=== PATIENT | male | born 1940 | race Caucasian/White ===

== ENCOUNTER 2019-04-19 10:00 | Observation (INO) | payer OTHER ==
[2019-04-19 10:22] VITALS: BMI 29.4
--- NOTE | 2019-04-19 10:31 | PDOC ---
History of Present Illness - General Chief Complaint: Syncope/Near Syncope Stated Complaint: LETHARGIC Time Seen by Provider: 04/19/19 10:31 History Source: Patient - History of Present Illness Initial Comments: 04/19/19 11:16 The patient is a 78 year old male with a PMH of Aortic valve replacement, CABG, HTN and BPH who was BIBEMS following a pre-syncopal episode this morning. Female comfort station attendant @ bedside assists in history. Patient states he was standing up in [place] this morning when he suddenly felt weak, lightheaded and diaphoretic. Denies any shortness of breath or palpitations. Patient did not syncopize but female comfort station attendant notes patient was unresponsive to his name or gentle shaking. EMS gave the patient glucose and subsequent BS was in the low 100's. States he had a similar episode one year previous for which he received no formal medical evaluation. Patient notes he ate a few cookies, one jellybean and drank coffee and orange justice this morning and attributes his symptoms to hypoglycemia. Patient lives in [place] and follows with a private PMD, the [place]. Previously scheduled cardiac evaluation including stress testing scheduled on 05/19/19. Patient notes he is in the process of eventually relocating to [place]. Allergy: Lidocaine (edema) Surgical: Aortic Valve replacement, CABG, B/L carpal tunnel, B/L knee replacement PMD: Dr. Su ([place]); [facility], patient has had no previous evaluations in our ED. Past History - Past Medical History Allergies/Adverse Reactions: Allergies Allergy/AdvReac Type Severity Reaction Status Date / Time lidocaine Allergy Verified 04/19/19 10:18 Home Medications: Ambulatory Orders Aspirin [Aspirin EC] 81 mg PO DAILY 04/19/19 Celecoxib [Celebrex] 200 mg PO DAILY 04/19/19 Clopidogrel Bisulfate [Plavix] 75 mg PO DAILY 04/19/19 Ezetimibe 10 mg PO HS 04/19/19 Lisinopril 20 mg PO DAILY 04/19/19 Metoprolol Tartrate 25 mg PO BID 04/19/19 Tamsulosin HCl [Flomax] 0.4 mg PO HS 04/19/19 Tramadol HCl [Ultram] 50 mg PO PRN PRN 04/19/19 Cardiac Disorders: Yes COPD: No Diabetes: Yes (diet controlled) HTN: Yes Hypercholesterolemia: Yes - Surgical History Cardiac Surgery: Yes (aortic vaulve, tripple bipass) - Suicide/Smoking/Psychosocial Hx Smoking History: Former smoker Have you smoked in the past 12 months: No Information on smoking cessation initiated: No Hx Alcohol Use: Yes Drug/Substance Use Hx: No Review of Systems - Review of Systems Constitutional: Yes: Weakness (episodic). No: Chills, Fever HEENTM: No: Blurred Vision, Recent change in vision Respiratory: No: Cough, Shortness of Breath Cardiac (ROS): No: Chest Pain, Lightheadedness, Syncope ABD/GI: No: Constipated, Diarrhea, Nausea, Vomiting : No: Burning, Dysuria *Physical Exam - Vital Signs Last Vital Signs Temp Pulse Resp BP Pulse Ox 97.5 F L 55 L 18 139/65 96 04/19/19 10:14 04/19/19 10:14 04/19/19 10:14 04/19/19 10:14 04/19/19 10:14 - Physical Exam Comments: 04/19/19 14:11 Triage VS reviewed, mildly bradycardic (HR 55) Awake, alert, well appearing, jocular CV: S1, S2, holosytolic Grade II murmur, no edema, no JVD Respiratory: CLTA B/L, no wheeze/crackles Abdomen: Soft, non-tender, no TTP Extremity: 2+ DP pulses, no edema Neuro: A&O x3, CN II-XII intact Heart Score/ECG Review - ECG Impressions Comment:: 04/19/19 14:19 EKG shows NSR HR 54, normal intervals, mild atrial enlargement, no deviations, no PARESH/STD/TWI - non ischemic EKG ED Treatment Course - LABORATORY CBC & Chemistry Diagram: 04/19/19 11:14 04/19/19 11:14 Medical Decision Making - Medical Decision Making 04/19/19 11:26 Paco Voss is a 78 year old male who presents with pre-syncopal episode. Mildly bradycardic (HR 55), other VS unremarkable. Repeat HR 60's. Patient is awake, well appearing, jocular. DDx is broad given patient's cardiac comorbitidies and includes r/o ACS, Arrhythmia, orthostatic insufficiency, carotid sinus syndrome or structural heart disease. Also consider hypoglycemia , vasovagal. Plan for Troponin, EKG, CXR, CBC/CMP. Cardiac monitoring. Reassess 04/19/19 11:27 EKG non-ischemic as documented in EKG section of EMR 04/19/19 11:49 No anemia, leukocytosis Fingerstick 145 04/19/19 12:59 Tropopnin (-) x1 Patient counseled on importance of admission for further evaluation including serial troponins, ? echo 04/19/19 13:13 Attending discussed case w/patient's PMD in [place], agrees with admission 04/19/19 14:14 Case d/w Dr. Senior (Resident) and Dr. Gaitan from hospitalist medicine service. Will admit to OBS telemetry. Patient reassessed @ bedside, Repeat HR 65, resting comfortably Clinical Impression: Pre-Syncope, possibly cardiac (including arrhythmia, bradycardia) vs. metabolic, hypoglycemia *DC/Admit/Observation/Transfer Diagnosis at time of Disposition: Near syncope - Discharge Dispostion Condition at time of disposition: Fair Decision to Admit order: Yes - Referrals - Patient Instructions - Post Discharge Activity
[2019-04-19 11:26] LABS: BASO % 0.5 % (0-2.0); EOS % 1.7 % (0-4.5); HEMATOCRIT 40.6 % (35.4-49); HEMOGLOBIN 14.1 GM/dL (11.7-16.9); LYMPH % 13.1 % (8-40); MCH 33.9 pg (25.7-33.7); MCHC 34.7 g/dl (32.0-35.9); MEAN CELL VOLUME 97.7 fl (80-96); MEAN PLT VOLUME 7.2 fl (7.5-11.1); MONO % 9.4 % (3.8-10.2); NEUT % 75.3 % (42.8-82.8); PLATELET COUNT 215 K/MM3 (134-434); RBC 4.16 M/mm3 (4.00-5.60); RDW 14.3 % (11.9-15.9); WHITE BLOOD COUNT 7.7 K/mm3 (4.0-10.0)
[2019-04-19 11:52] LABS: ALBUMIN 3.7 g/dl (3.4-5.0); ALK PHOS 64 U/L (45-117); ANION GAP 8 MMOL/L (8-16); BILIRUBIN,TOTAL 0.6 mg/dL (0.2-1); BLOOD UREA NITROGEN 17 mg/dL (7-18); CHLORIDE 99 mmol/L (98-107); CO2 26 mmol/L (21-32); CREATININE 0.7 mg/dL (0.55-1.3); GLUCOSE,RANDOM 146 mg/dL (74-106); N-TERMINAL BNP 256.1 pg/ml (5-450); POTASSIUM 3.7 mmol/L (3.5-5.1); SGOT/AST 30 U/L (15-37); SGPT/ALT 44 U/L (13-61); SODIUM 133 mmol/L (136-145); TOT PROT 6.7 g/dl (6.4-8.2)
--- NOTE | 2019-04-19 13:21 | PDOC ---
Documentation entered by Otoniel Bruce SCRIBE, acting as scribe for Miri Navarro MD. Miri Navarro MD: This documentation has been prepared by the Teo mcdaniel Daniel, SCRIBE, under my direction and personally reviewed by me in its entirety. I confirm that the documentation accurately reflects all work, treatment, procedures, and medical decision making performed by me. Attending Attestation - Resident Resident Name: Abby Galindo - [facility] HPI: 04/19/19 11:05 The patient is a 78 year old male with a past medical history of HTN, aortic valve replacement, diabetes, and CABG here today for evaluation of lightheadedness. The patient reports that he stood and suddenly felt lightheaded and felt like he needed to sleep. Patient's friend reports that his color was "off", he was unresponsive, and he was diaphoretic for 30-45 minutes. He reports that this before with the last episode 1 year ago and he ate and felt better. He states that he is currently asymptomatic. Patient denies headache. Denies fever, chills. Denies chest pain, shortness of breath. Denies nausea, vomiting, diarrhea, abdominal pain. Allergies: lidocaine Surgical history: right rotator cuff repair. Bilateral knee surgery. PCP: Dr. Su - Physicial Exam PE: 04/19/19 13:09 GENERAL: Awake, alert, and fully oriented, in no acute distress HEAD: No signs of trauma EYES: PERRLA, EOMI, sclera anicteric, conjunctiva clear ENT: Auricles normal inspection, hearing grossly normal, nares patent, oropharynx clear without exudates. Moist mucosa NECK: Normal ROM, supple, no lymphadenopathy, JVD, or masses LUNGS: Breath sounds equal, clear to auscultation bilaterally. No wheezes, and no crackles HEART: Regular rate and rhythm, normal S1 and S2, no murmurs, rubs or gallops ABDOMEN: Soft, nontender, normoactive bowel sounds. No guarding, no rebound. No masses EXTREMITIES: Normal range of motion, no edema. No clubbing or cyanosis. No cords, erythema, or tenderness NEUROLOGICAL: Cranial nerves II through XII grossly intact. Normal speech, normal gait SKIN: Warm, Dry, normal turgor, no rashes or lesions noted. - Medical Decision Making 04/19/19 13:19 Pt presents to the ED complaining of presyncope that resolved spontaneously. now denies complaints. Given his extensive cardiac history, arrythmia and ACS remain on the differential. Will check labs and cardiac enzymes and admit for observation.
--- NOTE | 2019-04-19 14:05 | HP ---
CHIEF COMPLAINT: "Got Faint" PCP: In [place] HISTORY OF PRESENT ILLNESS: Pt. is a 78 y.o. M presenting for a few minutes of lightheadedness and faintness. Pt. states it felt similar to when he feels hypoglycemic. Pt. endorses having breakfast this morning including orange juice and cookies. Pt. declared that this does not happen with any regularity and that the last time he felt this way, was last year. Pt. denied any chest pain or shortness of breath at any time today before or after the event. Per girlfriend who was at bedside, Pt. was diaphoretic and had some undescribable eye gaze abnormalities. Per girlfriend Pt. threw up 3x however Pt. states he spit up some NBNB emesis. Pt. denies any symptoms at this time. Pt. inquiring about going home. 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 ER course was notable for: (1)CBC, CMP (2)CXR (3) Recent Travel: Recent travel from [place] PAST MEDICAL HISTORY: DM, HTN, HLD, CAD, Skin CA 4-5 years PAST SURGICAL HISTORY: CABG, Aortic Valve replacement, B/l TKR, L. Hip replacement, b/l shoulder surgery, Dental procedures (tooth extraction x 2) Social History: Smoking: Former smoker Alcohol: Occasional Drinker Drugs: Denies Family History: Non-contributory Allergies lidocaine Allergy (Verified 04/19/19 10:18) HOME MEDICATIONS: Home Medications Medication Instructions Recorded Aspirin [Aspirin EC] 81 mg PO DAILY 04/19/19 Celecoxib [Celebrex] 200 mg PO DAILY 04/19/19 Clopidogrel Bisulfate [Plavix] 75 mg PO DAILY 04/19/19 Ezetimibe 10 mg PO HS 04/19/19 Lisinopril 20 mg PO DAILY 04/19/19 Metoprolol Tartrate 25 mg PO BID 04/19/19 Tamsulosin HCl [Flomax] 0.4 mg PO HS 04/19/19 Tramadol HCl [Ultram] 50 mg PO PRN PRN 04/19/19 REVIEW OF SYSTEMS CONSTITUTIONAL: Absent: fever, chills, diaphoresis, generalized weakness, malaise, loss of appetite, weight change HEENT: Absent: rhinorrhea, nasal congestion, throat pain, throat swelling, difficulty swallowing, mouth swelling, ear pain, eye pain, visual changes CARDIOVASCULAR: Absent: chest pain, syncope, palpitations, irregular heart rate, lightheadedness , peripheral edema RESPIRATORY: Absent: cough, shortness of breath, dyspnea with exertion, orthopnea, wheezing, stridor, hemoptysis GASTROINTESTINAL: Absent: abdominal pain, abdominal distension, nausea, vomiting, diarrhea, constipation, melena, hematochezia GENITOURINARY: Absent: dysuria, frequency, urgency, hesitancy, hematuria, flank pain, genital pain MUSCULOSKELETAL: Absent: myalgia, arthralgia, joint swelling, back pain, neck pain SKIN: Absent: rash, itching, pallor HEMATOLOGIC/IMMUNOLOGIC: Absent: easy bleeding, easy bruising, lymphadenopathy, frequent infections ENDOCRINE: Absent: unexplained weight gain, unexplained weight loss, heat intolerance, cold intolerance NEUROLOGIC: Absent: headache, focal weakness or paresthesias, dizziness, unsteady gait, seizure, mental status changes, bladder or bowel incontinence PSYCHIATRIC: Absent: anxiety, depression, suicidal or homicidal ideation, hallucinations. PHYSICAL EXAMINATION Vital Signs - 24 hr 04/19/19 04/19/19 10:14 10:15 Temperature 97.5 F L Pulse Rate 55 L Respiratory 18 Rate Blood Pressure 139/65 O2 Sat by Pulse 96 99 Oximetry (%) GENERAL: Awake, alert, and fully oriented, in no acute distress. HEAD: Normal with no signs of trauma. EYES: extraocular movements intact, sclera anicteric, conjunctiva clear. EARS, NOSE, THROAT: Ears normal, nares patent, oropharynx clear without exudates. Moist mucous membranes. NECK: Normal range of motion, supple without lymphadenopathy, no carotid bruit, JVD, or masses. LUNGS: Breath sounds equal, clear to auscultation bilaterally. No wheezes, and no crackles. No accessory muscle use. HEART: Regular rate and rhythm, normal S1 and S2 with holosystolic murmur ABDOMEN: Soft, nontender, not distended, normoactive bowel sounds MUSCULOSKELETAL: Normal range of motion at all joints. No bony deformities or tenderness. No CVA tenderness. UPPER EXTREMITIES: 2+ radial pulses, warm, well-perfused. No cyanosis. No clubbing. No peripheral edema. LOWER EXTREMITIES: 2+ pulses, warm, well-perfused. No calf tenderness. No peripheral edema. NEUROLOGICAL: Normal speech. Normal gait. PSYCHIATRIC: Cooperative. Good eye contact. Appropriate mood and affect. SKIN: Warm, dry, normal turgor, no rashes or lesions noted, normal capillary refill. Laboratory Results - last 24 hr 04/19/19 04/19/19 04/19/19 11:14 11:14 11:19 WBC 7.7 RBC 4.16 Hgb 14.1 Hct 40.6 MCV 97.7 H MCH 33.9 H MCHC 34.7 RDW 14.3 Plt Count 215 MPV 7.2 L Absolute Neuts (auto) 5.8 Neutrophils % 75.3 Lymphocytes % 13.1 Monocytes % 9.4 Eosinophils % 1.7 Basophils % 0.5 Nucleated RBC % 0 Sodium 133 L Potassium 3.7 Chloride 99 Carbon Dioxide 26 Anion Gap 8 BUN 17 Creatinine 0.7 Est GFR (CKD-EPI)AfAm 105.50 Est GFR (CKD-EPI)NonAf 91.03 POC Glucometer 145 Random Glucose 146 H Calcium 9.0 Total Bilirubin 0.6 AST 30 ALT 44 Alkaline Phosphatase 64 Creatine Kinase 63 Troponin I < 0.02 B-Natriuretic Peptide 256.1 Total Protein 6.7 Albumin 3.7 ASSESSMENT/PLAN: Pt. is a 78 y.o. M w/ PMHx. of DM, HTN, HLD, CAD(s/p CABG and Aortic valve replacement), Skin CA (4-5 years ago) presenting for a few minutes of lightheadedness and faintness at restoration, now currently asymptomatic. #Pre-syncope Observe f/u Orthostatic Vital signs Afebrile labs grossly wnl asymptomatic BGM on arrival 145 #HTN resume home medications #CAD resume home medications #DM Diet controlled #FEN no IVF monitor electrolytes and replete as needed Na restricted/ Diabetic Diet Visit type - Emergency Visit Emergency Visit: Yes ED Registration Date: 04/19/19 Care time: The patient presented to the Emergency Department on the above date and was hospitalized for further evaluation of their emergent condition. - New Patient This patient is new to me today: Yes Date on this admission: 04/19/19 - Critical Care Critical Care patient: No
[2019-04-19] MEDS ORDERED: traMADol HCL 50 MG TABLET PO PRN ×4 (14:26→14:40)
--- NOTE | 2019-04-19 14:51 | PN ---
Teaching Attending Note Name of Resident: Vasiliy Senior ATTENDING PHYSICIAN STATEMENT I saw and evaluated the patient. I reviewed the resident's note and discussed the case with the resident. I agree with the resident's findings and plan as documented. SUBJECTIVE:78yo M with PMH DM, HTN, dyslipidemia, CAD s/p CABG, S/P AVR presenting after feeling lightheaded at [facility]. states he ate a cookie with some orange juice this AM. while standing in [facility] felt light headed with his eyes fluttering and a sudden onset on urge to lay down which he was unable to do. as per ER MD when EMS arrived pt was given glucose tabs and then BGM done was 100's. pt currently now feeling welll with symptoms. had similar episode a year ago which resolved after eating. denies cp, sob,fever, chills, LOC, falling , palpitations, blurred vision. states hes been eating well. no recent medication changes or URI, saw his assessment coordinator prior to coming to [place] and was cleared for business travel consultant is scheduled for full cardiac workup in 3 months by PMD in [place]. OBJECTIVE: Last Vital Signs Temp Pulse Resp BP Pulse Ox 97.1 F L 72 18 143/71 96 04/19/19 14:46 04/19/19 14:46 04/19/19 14:46 04/19/19 14:46 04/19/19 14:46 General NAD CV S1 S2 RRR +murmur Lungs CTA B/L no wheezing/rales/rhonchi Abdomen soft NT/ND Extremites no pedal edema Neuro CN II-XII grossly intact, negative dysmetria/ pronator drift. strength and sensation equal in all 4 extremities. normal gait ASSESSMENT AND PLAN: 78yo M with PMH DM, HTN, dyslipidemia, CAD s/p CABG, S/P AVR presenting after feeling lightheaded at [facility] 1. Near syncope- possible hypoglycemia vs dehydration vs bradycardia. was noted to have HR 55 on arrival. will check orthostatics, place on cardiac monitoring. monitor BGM. trend cardiac enzymes Q6H with EKG x2. 2. Dyslipidemia- statin 3. CAD s/p CABG- on asa/plavix. cont home medications 4. s/p AVR 5. will observe overnight, anticipate discharge in the AM if clinically remains stable.
[2019-04-19] MEDS ORDERED: TAMSULOSIN HCL 0.4 MG CAP PO SCH ×2 (18:45→22:00)
[2019-04-19] MEDS: METOPROLOL TARTRATE 25 MG TABLET (FP) PO SCH (21:59)
[2019-04-19] MEDS ORDERED: ASPIRIN COATED 81 MG TABLET.EC PO SCH (22:00)
[2019-04-19] MEDS ORDERED: EZETIMIBE 10 MG TABLET (FP) PO SCH (22:00)
[2019-04-20] MEDS ORDERED: PT OWN MED DRAWER 7, Y5N ONE (09:31)
[2019-04-20] MEDS: METOPROLOL TARTRATE 25 MG TABLET (FP) PO SCH (09:44)
[2019-04-20 09:48] VITALS: BP 138/66; PULSE 92; TEMP 98.5
[2019-04-20] MEDS ORDERED: LISINOPRIL 20 MG TABLET (FP) PO SCH (10:00)
[2019-04-20] MEDS ORDERED: ASPIRIN COATED 81 MG TABLET.EC PO SCH ×2 (10:00→22:00)
[2019-04-20] MEDS ORDERED: CLOPIDOGREL BISULFATE 75 MG TABLET (FP) PO SCH (10:00)
[2019-04-20] MEDS ORDERED: CELECOXIB 200 MG CAPSULE PO SCH (10:00)
--- NOTE | 2019-04-20 11:04 | EKG ---
Test Reason : Blood Pressure : / mmHG Vent. Rate : 054 BPM Atrial Rate : 054 BPM P-R Int : 196 ms QRS Dur : 102 ms QT Int : 460 ms P-R-T Axes : 077 007 071 degrees QTc Int : 436 ms SINUS BRADYCARDIA POSSIBLE LEFT ATRIAL ENLARGEMENT BORDERLINE ECG NO PREVIOUS ECGS AVAILABLE Confirmed by RICKY MANJARREZ, JOSH ([id number]) on 04/20/2019 11:04:25 AM Referred By: Confirmed By:JOSH GARCÍA MD
--- NOTE | 2019-04-20 12:49 | PN ---
Teaching Attending Note Name of Resident: Vasiliy Senior ATTENDING PHYSICIAN STATEMENT I saw and evaluated the patient. I reviewed the resident's note and discussed the case with the resident. I agree with the resident's findings and plan as documented. SUBJECTIVE:asymptomatic. no repeat episodes, tolerating diet. ambulating without difficulty. denies Cp, SOB, fever, chills, blurred vision, N/V/C/D OBJECTIVE: Last Vital Signs Temp Pulse Resp BP Pulse Ox 98.5 F 92 H 18 138/66 98 04/20/19 09:47 04/20/19 09:47 04/20/19 09:47 04/20/19 09:47 04/20/19 09:00 General NAD CV S1 S2 RRR +murmur Lungs CTA B/L no wheezing/rales/rhonchi ASSESSMENT AND PLAN: 78yo M with PMH DM, HTN, dyslipidemia, CAD s/p CABG, S/P AVR presenting after feeling lightheaded at [employer] 1. Near syncope- possible hypoglycemia vs dehydration vs bradycardia. orthostatics negative. sugars remained stable while here, no events noted on tele monitor. 2. Dyslipidemia- statin 3. CAD s/p CABG- on asa/plavix. cont home medications 4. s/p AVR 5. d/c home. has already called and spoke with his roller operator who is aware he is hospitalized and anticipate discharge today
--- NOTE | 2019-04-20 14:21 | DS ---
Physical Exam: SUBJECTIVE: Patient seen and examined OBJECTIVE: Vital Signs Period Temp Pulse Resp BP Sys/Mahan Pulse Ox Last 24 Hr 97.1 F-98.5 F 72-95 16-20 127-153/60-80 95-98 PHYSICAL EXAM GENERAL: The patient is awake, alert, and fully oriented, in no acute distress. HEAD: Normal with no signs of trauma. EYES: PERRL, extraocular movements intact, sclera anicteric, conjunctiva clear. ENT: Ears normal, nares patent, oropharynx clear without exudates, moist mucous membranes. NECK: Trachea midline, full range of motion, supple. LUNGS: Breath sounds equal, clear to auscultation bilaterally, no wheezes, no crackles, no accessory muscle use. HEART: Regular rate and rhythm, S1, S2 without murmur, rub or gallop. ABDOMEN: Soft, nontender, nondistended, normoactive bowel sounds, no guarding, no rebound, no hepatosplenomegaly, no masses. EXTREMITIES: 2+ pulses, warm, well-perfused, no edema. NEUROLOGICAL: Cranial nerves II through XII grossly intact. Normal speech, gait not observed. PSYCH: Normal mood, normal affect. SKIN: Warm, dry, normal turgor, no rashes or lesions noted. LABS HOSPITAL COURSE: Date of Admission:04/19/19 Date of Discharge: 04/20/19 Discharge Summary Reason For Visit: PRE-SYNCOPE Condition: Stable - Instructions Diet, Activity, Other Instructions: You came to the hospital because you felt lightheaded and faint. You were observed in the hospital overnight. No events were seen on your cardiac monitoring. Please resume all your medications as they were prescribed. Please follow up with PCP, Dr. Wu at the resident clinic in a week. You should also follow up with [employer], Dr. Gonzalez in a week. Please return to the ED if you are having worsening shortness of breath, chest pain, worsening lightheadedness or any concerning symptoms. Referrals: Charles Wu MD [Staff Physician] - 1 Week Tommy Gonzalez MD [Staff Physician] - 1 Week Disposition: HOME - Home Medications Comprehensive Discharge Medication List: Ambulatory Orders Aspirin [Aspirin EC] 81 mg PO DAILY 04/19/19 Celecoxib [Celebrex] 200 mg PO DAILY 04/19/19 Clopidogrel Bisulfate [Plavix] 75 mg PO DAILY 04/19/19 Ezetimibe 10 mg PO HS 04/19/19 Lisinopril 20 mg PO DAILY 04/19/19 Metoprolol Tartrate 25 mg PO BID 04/19/19 Tamsulosin HCl [Flomax] 0.4 mg PO HS 04/19/19 Tramadol HCl [Ultram] 50 mg PO PRN PRN 04/19/19
== END 2019-04-20 11:55 | disposition home or self-care (01) ==
LOC: JER 10:00 → JERBED 13:49 → J4W 15:23
PROVIDERS: ADMIT Internal Medicine; ATTEND Internal Medicine
DX: R55 Syncope and collapse (principal); I10 Essential (primary) hypertension; I25.10 Atherosclerotic heart disease of native coronary artery without angina pectoris; E11.9 Type 2 diabetes mellitus without complications; E78.5 Hyperlipidemia, unspecified; N40.0 Benign prostatic hyperplasia without lower urinary tract symptoms; Z87.891 Personal history of nicotine dependence; Z95.2 Presence of prosthetic heart valve; Z95.1 Presence of aortocoronary bypass graft; Z79.82 Long term (current) use of aspirin; Z88.6 Allergy status to analgesic agent
CPT/HCPCS: 36415; 71045-TC-FY; 80053; 82550; 82962; 83880; 84484; 85025; 93005; 93010; 99285-25; G0378

== ENCOUNTER 2019-10-05 07:53 | Emergency (ER) | payer OTHER ==
[2019-10-05] MEDS ORDERED: ASPIRIN 81 MG CHEWABLE TABLETS PO ONE (08:21)
[2019-10-05] MEDS ORDERED: SODIUM CHLORIDE 500 ML IV STA (08:21)
--- NOTE | 2019-10-05 08:31 | PDOC ---
History of Present Illness - General Chief Complaint: Chest Pain Stated Complaint: ABD PAIN Time Seen by Provider: 10/05/19 08:24 - History of Present Illness Initial Comments: Mr. Voss is a 78 y/o male with PMH significant for HTN, HLD, triple bypass, aortic valve replacement, s/p cath last week (at [facility]) and started on plavix, presenting today with RUQ abdominal pain. Reports that the pain started this morning around 8am. Denies nausea/vomiting. Reports burping. Pain does not radiate anywhere else. Intermittent but has worsened and become more frequent. Denies chest pain or shortness of breath. Denies headache/dizziness. Denies dysuria, diarrhea, or blood in the stool. Cards: Dr. Moser Past History - Past Medical History Allergies/Adverse Reactions: Allergies Allergy/AdvReac Type Severity Reaction Status Date / Time lidocaine Allergy Verified 10/05/19 08:04 Home Medications: Ambulatory Orders Aspirin [Aspirin EC] 81 mg PO DAILY 04/19/19 Clopidogrel Bisulfate [Plavix] 75 mg PO DAILY 04/19/19 Lisinopril 20 mg PO DAILY 04/19/19 Metoprolol Tartrate 25 mg PO BID 04/19/19 Tamsulosin HCl [Flomax] 0.4 mg PO HS 04/19/19 Tramadol HCl [Ultram] 50 mg PO PRN PRN 04/19/19 B-Complex with Vitamin C [Super B with Vit C] 1 each PO DAILY 10/05/19 Rosuvastatin [Crestor -] 5 mg PO HS 10/05/19 Sildenafil Citrate 100 mg PO PRN PRN 10/05/19 traZODone HCL [Trazodone HCl] 50 mg PO PRN PRN 10/05/19 Cardiac Disorders: Yes COPD: No Diabetes: Yes (diet controlled) HTN: Yes Hypercholesterolemia: Yes - Surgical History Cardiac Surgery: Yes (aortic vaulve, tripple bipass) - Immunization History Immunization Up to Date: Yes - Psycho Social/Smoking Cessation Hx Smoking History: Never smoked Have you smoked in the past 12 months: No Information on smoking cessation initiated: No Hx Alcohol Use: No Drug/Substance Use Hx: No Review of Systems - Review of Systems Comments:: GENERAL/CONSTITUTIONAL: No fever or chills. No weakness._ HEAD, EYES, EARS, NOSE AND THROAT: No change in vision. No change in hearing. No sore throat._ CARDIOVASCULAR: No chest pain or shortness of breath_ RESPIRATORY: Denies cough, hemoptysis_ GASTROINTESTINAL: Reports RUQ abdominal pain. No nausea, vomiting, diarrhea or constipation._ GENITOURINARY: No dysuria, frequency, or change in urination._ MUSCULOSKELETAL: No joint or muscle swelling or pain. No neck or back pain._ SKIN: No rash_ NEUROLOGIC: No headache, vertigo, loss of consciousness, or change in strength/ sensation._ ENDOCRINE: No increased thirst. No abnormal weight change_ ALLERGIC/IMMUNOLOGIC: No hives or skin allergy._ *Physical Exam - Vital Signs Last Vital Signs Temp Pulse Resp BP Pulse Ox 98.7 F 62 18 134/70 97 10/05/19 13:20 10/05/19 14:10 10/05/19 14:10 10/05/19 14:10 10/05/19 14:10 - Physical Exam Comments: GENERAL: Awake, alert, and oriented to person/place/time, in no acute distress_ HEAD: No signs of trauma, normocephalic, atraumatic _ EYES: PERRLA, EOMI, sclera anicteric, conjunctiva clear_ ENT: Hearing grossly normal, nares patent, oropharynx clear without exudates. No uvular deviation. Moist mucosa_ NECK: Normal ROM, supple, no lymphadenopathy, JVD, or masses_ LUNGS: No distress, speaks in full sentences, clear to auscultation bilaterally _ HEART: Regular rate and rhythm, normal S1 and S2, no murmurs appreciated, peripheral pulses normal and equal bilaterally._ ABDOMEN: Soft, RUQ TTP. No guarding, no rebound. No masses_ EXTREMITIES: Normal inspection, Normal range of motion, no edema. No clubbing or cyanosis. Cap refill < 3 sec. NEUROLOGICAL: Cranial nerves II through XII grossly intact. Normal speech, normal gait, no focal sensorimotor deficits _ SKIN: Warm, Dry, normal turgor, no rashes or lesions noted_ ED Treatment Course - LABORATORY CBC & Chemistry Diagram: 10/05/19 08:38 10/05/19 08:38 - ADDITIONAL ORDERS Additional order review: Laboratory Results 10/05/19 10/05/19 10/05/19 09:37 09:19 08:38 PT with INR 13.00 INR 1.10 H PTT (Actin FS) 34.8 Sodium 135 L Potassium 4.3 Chloride 100 Carbon Dioxide 30 Anion Gap 6 L BUN 17.6 Creatinine 1.0 Est GFR (CKD-EPI)AfAm 83.77 Est GFR (CKD-EPI)NonAf 72.28 Random Glucose 140 H Lactic Acid 1.4 Calcium 8.8 Magnesium 1.9 Total Bilirubin 0.6 AST 95 H ALT 84 H Alkaline Phosphatase 208 H Creatine Kinase Troponin I Total Protein 6.1 L Albumin 3.0 L Lipase 237 10/05/19 08:38 PT with INR INR PTT (Actin FS) Sodium Potassium Chloride Carbon Dioxide Anion Gap BUN Creatinine Est GFR (CKD-EPI)AfAm Est GFR (CKD-EPI)NonAf Random Glucose Lactic Acid Calcium Magnesium Total Bilirubin AST ALT Alkaline Phosphatase Creatine Kinase 33 Troponin I < 0.02 Total Protein Albumin Lipase 10/05/19 08:38 RBC 3.66 L MCV 94.1 MCHC 34.5 RDW 13.4 MPV 6.9 L Neutrophils % 74.1 Lymphocytes % 15.5 Monocytes % 7.2 Eosinophils % 2.6 Basophils % 0.6 - RADIOLOGY Radiology Studies Ordered: Category Date Time Status ABDOMEN US -LIMITED [US] Stat Ultrasound 10/05/19 09:28 Completed - Medications Given in the ED: ED Medications Discontinued Medications Generic Name Dose Route Start Last Admin Trade Name Ramón PRN Reason Stop Dose Admin Acetaminophen 1,000 mg 10/05/19 08:48 10/05/19 08:58 Ofirmev Injection - IVPB 10/05/19 08:49 1,000 mg ONCE ONE Administration Aspirin 162 mg 10/05/19 08:21 10/05/19 08:54 Asa - PO 10/05/19 08:22 Not Given ONCE ONE Sodium Chloride 500 mls @ 500 mls/hr 10/05/19 08:21 10/05/19 08:43 Normal Saline - IV 10/05/19 09:20 500 mls/hr ASDIR STA Administration Morphine Sulfate 2 mg 10/05/19 09:15 10/05/19 09:26 Morphine Injection - IVPUSH 10/05/19 09:16 2 mg ONCE ONE Administration Medical Decision Making - Medical Decision Making 10/05/19 08:30 78M hx of HTN HLD, s/p CABG, AVR, cardiac cath last week, presenting today with RUQ abdominal pain. DDx includes cholecystitis vs symptomatic cholelithiasis vs pancreatitis vs r/o ACS. -CBC, CMP, coags, Mg -CXR, EKG, trop -lipase -US abd RUQ 10/05/19 0845 EKG shows NSR, 65 bpm, incomplete RBBB, no ST elevation/depression, QTc 449 Called to bedside for low BP in the 100's systolic. Patient reassessed. Cap refill < 3 sec. Extremities warm to touch. Clear mentation. -1L NS -IV Tylenol 10/05/19 1000 Labs reviewed and significant for elevated LFTs. 10/05/19 13:26 RUQ US shows multiple hepatic masses and cholelithiasis w/o sonographic evidence of cholecystitis. D/w Dr. Gastelum, who is comfortable with d/c patient and f/u with his office this week. D/w the patient and family, who feels that his pain has improved and would like to go home. Discussed the results of the ultrasound with the patient and family extensively , who verbalized understanding of the importance of following up with their PCP Dr. Gastelum and an oncologist in the immediate future. 10/05/19 13:59 Patient reassessed. Able to tolerate PO. VS 138/90. HR 66. Plan to d/c home f/u Dr. Gastelum and oncology referral. Discharge - Discharge Information Problems reviewed: Yes Clinical Impression/Diagnosis: Abdominal pain Qualifiers: Abdominal location: right upper quadrant Qualified Code(s): R10.11 - Right upper quadrant pain Condition: Stable Disposition: HOME - Admission No - Follow up/Referral Referrals: Taiwo Gastelum MD [Primary Care Provider] - - Patient Discharge Instructions Patient Printed Discharge Instructions: DI for Abdominal Pain-Adult Additional Instructions: Please keep your appointment tomorrow with Dr. Gastelum. Please ask Dr. Gastelum for a referral to an oncologist. As we discussed today, the ultrasound showed multiple liver masses. This needs to be worked up by an oncologist to further define the condition. If you experience any new, worsening, or concerning symptoms, including chest pain, shortness of breath, severe abdominal pain, nausea/vomiting, loss of consciousness, or any other concerns, please return to the emergency department. - Post Discharge Activity
[2019-10-05 08:41] VITALS: BMI 29.8
[2019-10-05] MEDS ORDERED: ACETAMINOPHEN 1000 MG/100 ML VIAL (NON FORMULARY) IVPB ONE (08:48)
[2019-10-05] MEDS ORDERED: ACETAMINOPHEN INJECTION 100 ML IVPB ONE (08:54)
[2019-10-05 08:55] LABS: BASO % 0.6 % (0-2.0); EOS % 2.6 % (0-4.5); HEMATOCRIT 34.4 % (35.4-49); HEMOGLOBIN 11.9 GM/dL (11.7-16.9); LYMPH % 15.5 % (8-40); MCH 32.4 pg (25.7-33.7); MCHC 34.5 g/dl (32.0-35.9); MEAN CELL VOLUME 94.1 fl (80-96); MEAN PLT VOLUME 6.9 fl (7.5-11.1); MONO % 7.2 % (3.8-10.2); NEUT % 74.1 % (42.8-82.8); PLATELET COUNT 288 K/MM3 (134-434); RBC 3.66 M/mm3 (4.00-5.60); RDW 13.4 % (11.9-15.9); WHITE BLOOD COUNT 5.3 K/mm3 (4.0-10.0)
--- NOTE | 2019-10-05 08:55 | PDOC ---
Attending Attestation - Resident Resident Name: Isidro Bond - ED Attending Attestation I have performed the following: I have examined & evaluated the patient, The case was reviewed & discussed with the resident, I agree w/resident's findings & plan, Exceptions are as noted - HPI HPI: 10/05/19 08:53 78y M hx of hl, htn, cad sp bypas, AVR, sp cath last week presents with RUQ abd pain. Patient notes that he has been having intermittent right upper quadrant pain for the last 2 weeks the episodes have been brief lasting approximately 1 hour before resolving, however last night his symptoms seem to get much worse. Patient does endorse nonbilious nonbloody vomiting last night. The patient denies any fever, chills, diarrhea, melena, dysuria, chest pain, shortness of breath, palpitations, lightheadedness. Cards: Dr. Moser PMD: [place] Physical Exam GENERAL: The patient is awake, alert, and fully oriented, Nontoxic - in no acute distress. HEAD: Normocephalic, atraumatic. EYES: extraocular movements intact, sclera anicteric, conjunctiva clear. ENT: Normal voice, Moist mucous membranes. NECK: Normal range of motion, supple LUNGS: Breath sounds equal, clear to auscultation bilaterally. No wheezes, no rhonchi, no rales. HEART: Regular rate and rhythm, normal S1 and S2 without murmur, rub or gallop. ABDOMEN: Positive Gary's, no rebound or guarding EXTREMITIES: Normal range of motion, no edema. NEUROLOGICAL: No facial assymetry, Normal speech, moving all 4 extremities spontaneously symmetrically PSYCH: Normal mood, normal affect. SKIN: Warm, Dry, normal turgor, Differential for patient's symptoms includes possible gastritis, cholecystitis, cholelithiasis, pancreatitis, consider possible ACS in light of his past medical history Screening EKG was nonspecific We will give the patient analgesia The patient's vital signs originally was hypotensive however I suspect this may be spurious from a cuff size as to large for his arm. We will give the patient fluids Will obtain blood work and right upper quadrant ultrasound Will reassess - Physicial Exam PE: 10/05/19 16:12 see above - Medical Decision Making 10/05/19 13:45 pts US noted for liver masses will have pt fu with pmd fo further workup pts pain is controlled and pt prefers d/c 10/05/19 16:12 ps vitals were normal at discharge Heart Score/ECG Review - ECG Impressions Comment:: 10/05/19 09:03 Twelve-lead EKG was performed and reviewed by me. There is normal sinus rhythm with a normal rate. Rate of 65 The axis is normal. Incomplete right bundle branch block There are no ST or T wave abnormalities.
[2019-10-05] MEDS ORDERED: morphine CARPU-JECT 2 MG/1 ML DISP.SYRIN IVPUSH ONE (09:15)
[2019-10-05] MEDS ORDERED: MORPHINE SULFATE 2 MG/ML VIAL ONE (09:20)
[2019-10-05 09:23] LABS: BILIRUBIN,TOTAL 0.6 mg/dL (0.2-1); BLOOD UREA NITROGEN 17.6 mg/dL (7-18); CALCIUM 8.8 mg/dL (8.5-10.1); MAGNESIUM 1.9 mg/dL (1.8-2.4); POTASSIUM 4.3 mmol/L (3.5-5.1); TOT PROT 6.1 g/dl (6.4-8.2)
--- NOTE | 2019-10-05 09:56 | EKG ---
Test Reason : Blood Pressure : / mmHG Vent. Rate : 065 BPM Atrial Rate : 065 BPM P-R Int : 182 ms QRS Dur : 100 ms QT Int : 432 ms P-R-T Axes : 081 011 064 degrees QTc Int : 449 ms NORMAL SINUS RHYTHM POSSIBLE LEFT ATRIAL ENLARGEMENT INCOMPLETE RIGHT BUNDLE BRANCH BLOCK BORDERLINE ECG WHEN COMPARED WITH ECG OF 19-APR-2019 10:03, NO SIGNIFICANT CHANGE WAS FOUND Confirmed by JOSH GARCÍA MD ([id number]) on 10/05/2019 9:56:00 AM Referred By: Confirmed By:JOSH GARCÍA MD
[2019-10-05 10:07] LABS: INR 1.1 (0.83-1.09)
[2019-10-05 10:10] LABS: ACTIVATED PTT 34.8 SECONDS (25.2-36.5)
[2019-10-05 13:21] VITALS: TEMP 98.7
[2019-10-05 14:11] VITALS: BP 134/70; PULSE 62
== END 2019-10-05 14:12 | disposition home or self-care (01) ==
LOC: JER 07:53
PROC: 3E0337Z Introduction of Electrolytic and Water Balance Substance into Peripheral Vein, Percutaneous Approach (ICD-10-PCS; principal; 2019-10-05)
PROC: 3E033NZ Introduction of Analgesics, Hypnotics, Sedatives into Peripheral Vein, Percutaneous Approach (ICD-10-PCS; 2019-10-05)
PROC: 3E033NZ Introduction of Analgesics, Hypnotics, Sedatives into Peripheral Vein, Percutaneous Approach (ICD-10-PCS; 2019-10-05)
DX: R10.11 Right upper quadrant pain (principal); I25.10 Atherosclerotic heart disease of native coronary artery without angina pectoris; I10 Essential (primary) hypertension; Z95.1 Presence of aortocoronary bypass graft; Z98.61 Coronary angioplasty status; Z95.4 Presence of other heart-valve replacement; E11.9 Type 2 diabetes mellitus without complications; E78.00 Pure hypercholesterolemia, unspecified; Z79.02 Long term (current) use of antithrombotics/antiplatelets; Z79.82 Long term (current) use of aspirin; K80.20 Calculus of gallbladder without cholecystitis without obstruction; K76.89 Other specified diseases of liver
CPT/HCPCS: 36415; 71046-TC-FY; 76705-TC; 80053; 82550; 83605; 83690; 83735; 84484; 85025; 85610; 85730; 93005; 93010; 96361; 96374; 96375; 99285-25; J0131

== ENCOUNTER 2019-10-21 09:30 | Day surgery (SDC) | payer OTHER ==
[2019-10-20 14:10] VITALS: BMI 32.2
[2019-10-21 16:48] VITALS: TEMP 97.9
[2019-10-21 16:53] VITALS: BP 138/77; PULSE 71
--- NOTE | 2019-10-23 14:06 | PATH ---
Surgical Pathology Report Patient Name: KALEB CALLE [facility]. Rec. #: [id number] /Age/Gender: 1940 (Age: 78) / M Account: [id number] Location: RADIOLOGY INTER Taken: 10/21/2019 Received: 10/21/2019 Reported: 10/23/2019 Physicians: Kody Jones M.D. Specimen(s) Received LIVER BIOPSY Clinical History 78-year-old male with multiple liver masses, possibly multifocal HCC versus metastasis Final Diagnosis LIVER, ULTRASOUND GUIDED CORE BIOPSY: HEPATOCELLULAR CARCINOMA, MODERATELY DIFFERENTIATED. SEE COMMENT. Comment: Immunohistochemical stains performed and interpreted at [facility] show the tumor is positive for AE1/3, while negative for CK7 and CK20. Additional immunohistochemical stains performed at [place], [place] ([id number]) and interpreted at [facility] show the tumor is positive for HepPar (HAS), glypican-3, and Arginase (weak). Polyclonal CEA shows rare, weak canalicular staining. Histomorphology and immunophenotype supports the diagnosis. Findings discussed with Dr. Garg. Positive and negative controls (internal if applicable) show appropriate results. Electronically Signed Mayi Blood M.D. Gross Description Received in formalin labeled "liver biopsy," are 3 cortez portions of soft tissue ranging from 0.8 x 0.2 x 0.1 cm to 1.0 x 0.2 x 0.1 cm. The specimens are submitted in toto in one cassette. 10/22/201910/22/2019
== END 2019-10-21 16:45 | disposition home or self-care (01) ==
LOC: JRADIR 09:30
PROVIDERS: ATTEND Internal Medicine Hematology & Oncology
PROC: 0FB13ZX Excision of Right Lobe Liver, Percutaneous Approach, Diagnostic (ICD-10-PCS; principal; 2019-10-21)
PROC: BF45ZZZ Ultrasonography of Liver (ICD-10-PCS; 2019-10-21)
DX: C22.0 Liver cell carcinoma (principal)
CPT/HCPCS: 76705-TC; 76942-TC; 87899; 88305-TC; 88341-TC; 88342-TC

== ENCOUNTER 2020-01-06 10:41 | Inpatient (IN) | payer OTHER ==
--- NOTE | 2020-01-06 12:02 | PDOC ---
Documentation entered by Arelis Tipton SCRIBE, acting as scribe for John Joe MD. John Joe MD: This documentation has been prepared by the Saeed mcdaniel Xhesika, SCRIBE, under my direction and personally reviewed by me in its entirety. I confirm that the documentation accurately reflects all work, treatment, procedures, and medical decision making performed by me. 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 Moser this morning for evaluation of syncopal episode. Pt states on Saturday (01/04/2020) he was at a restaurant when he syncopized. at the bedside states the patient was seated in a chair when he suddenly slumped over. Pt vomited and was out for approximately 15-20 minutes. Pt states he had chest pain prior to his syncopal event, but denies chest pain ever since. Pt state he was then taken to [facility], where he had lab work, ECG and CT scan done. However, the patient left AMA. Pt saw Dr. Moser today and was subsequently referred to ED. Pt has no complaints at this time. The patient denies chest pain, shortness of breath, headache and dizziness. Denies fever, chills, cough, nausea, vomiting, diarrhea and constipation. Allergies:lidocaine PCP: Dr. Gastelum Cards: Dr. Moser Past History - Past Medical History Allergies/Adverse Reactions: Allergies Allergy/AdvReac Type Severity Reaction Status Date / Time bee venom protein (honey bee) Allergy Verified 01/06/20 10:47 lidocaine Allergy "gets very Verified 01/06/20 10:47 ill" Home Medications: Ambulatory Orders Aspirin [Aspirin EC] 81 mg PO HS 04/19/19 Clopidogrel Bisulfate [Plavix] 75 mg PO DAILY 04/19/19 Lisinopril 20 mg PO DAILY 04/19/19 Metoprolol Tartrate 50 500s PO DAILY 04/19/19 Tamsulosin HCl [Flomax] 0.4 mg PO HS 04/19/19 Rosuvastatin [Crestor -] 5 mg PO HS 10/05/19 Cholecalciferol (Vitamin D3) [Vitamin D] 50 mcg PO DAILY 10/21/19 Cholecalciferol (Vitamin D3) [Vitamin D3] 50 mcg PO DAILY 01/06/20 Isosorbide Mononitrate [Isosorbide Mononitrate ER] 30 mg PO DAILY 01/06/20 Omeprazole 40 mg PO DAILY 01/06/20 Anemia: No Asthma: No Cancer: No Cardiac Disorders: Yes ("blocked artery") CVA: No COPD: No CHF: No Dementia: No Diabetes: Yes (diet controlled) GI Disorders: No Disorders: No HTN: Yes Hypercholesterolemia: Yes Liver Disease: No Seizures: No Thyroid Disease: No - Surgical History Cardiac Surgery: Yes (CABG) Orthopedic Surgery: Yes (left hip repalcement, rolf knee replacement) - Immunization History Immunization Up to Date: Yes - Psycho Social/Smoking Cessation Hx Smoking History: Former smoker Have you smoked in the past 12 months: No If you are a former smoker, when did you quit?: 1994 Information on smoking cessation initiated: No Hx Alcohol Use: No Drug/Substance Use Hx: No Substance Use Type: Alcohol Hx Substance Use Treatment: No Review of Systems - Review of Systems Able to Perform ROS?: Yes Comments:: 01/06/20 11:55 GENERAL/CONSTITUTIONAL: No fever or chills. No weakness. HEAD, EYES, EARS, NOSE AND THROAT: No change in vision. No ear pain or discharge. No sore throat. CARDIOVASCULAR: No chest pain, no shortness of breath, no loss of consciousness RESPIRATORY: No cough, wheezing, or hemoptysis. GASTROINTESTINAL: No nausea, vomiting, diarrhea or constipation. GENITOURINARY: No dysuria, frequency, or change in urination. MUSCULOSKELETAL: No joint or muscle swelling or pain. No neck or back pain. SKIN: No rash NEUROLOGIC: No vertigo, no change in strength/sensation. ENDOCRINE: No increased thirst. No abnormal weight change. HEMATOLOGIC/LYMPHATIC: No anemia, easy bleeding, or history of blood clots. ALLERGIC/IMMUNOLOGIC: No hives or skin allergy. *Physical Exam - Vital Signs Last Vital Signs Temp Pulse Resp BP Pulse Ox 97.3 F L 77 16 122/58 L 99 01/06/20 10:47 01/06/20 10:47 01/06/20 10:47 01/06/20 10:47 01/06/20 10:47 - Physical Exam 01/06/20 11:56 GENERAL: Awake, alert, and fully oriented, in no acute distress. HEAD: No signs of trauma EYES: PERRLA, EOMI, sclera anicteric, conjunctiva clear ENT: Auricles normal inspection, hearing grossly normal, nares patent, oropharynx clear without exudates. Moist mucosa NECK: Nontender, no stepoffs, Normal ROM, supple, no lymphadenopathy, JVD, or masses LUNGS: Breath sounds equal, clear to auscultation bilaterally. No wheezes, and no crackles HEART: Regular rate and rhythm, normal S1 and S2, no murmurs, rubs or gallops ABDOMEN: Soft, nontender, normoactive bowel sounds. No guarding, no rebound. No masses EXTREMITIES: Normal range of motion, no edema. No clubbing or cyanosis. No cords, erythema, or tenderness NEUROLOGICAL: Cranial nerves II through XII intact. 5/5 strength and sensation in all extremities, Normal speech, normal gait, normal cerebellar function SKIN: Warm, Dry, normal turgor, no rashes or lesions noted. Heart Score/ECG Review - ECG Impressions Comment:: 01/06/20 12:04 NSR, no PARESH/STDs, TW flattening in I and aVL, incomplete RBBB, rate 71 ED Treatment Course - LABORATORY CBC & Chemistry Diagram: 01/06/20 12:21 01/06/20 12:21 Medical Decision Making - Medical Decision Making 01/06/20 12:05 79 M with syncopal episode 2 days ago. Initial work up at [place] reportedly unremarkable, but pt left AMA. Pt with no complaints now. EKG with no evidence of acute ischemia or arrhythmia. However, given significant cardiac history, suspect possible paroxysmal arrhythmia. - Labs, trop - CXR - Cards c/s 01/06/20 14:06 Labs unremarkable, trop negative x 1 Dr. Moser in ED to evaluate pt, recommends tele admission for now, possible transfer to [facility] later for cath Pt admitted to Dr. Gastelum Discharge - Discharge Information Problems reviewed: Yes Clinical Impression/Diagnosis: Syncope - Admission Yes - Follow up/Referral Referrals: Taiwo Darnell MD [Primary Care Provider] - - Patient Discharge Instructions - Post Discharge Activity
[2020-01-06 12:31] LABS: BASO % 0.7 % (0-2.0); EOS % 8.1 % (0-4.5); HEMATOCRIT 38.9 % (35.4-49); HEMOGLOBIN 13.3 GM/dL (11.7-16.9); LYMPH % 13.7 % (8-40); MCH 31.9 pg (25.7-33.7); MCHC 34.2 g/dl (32.0-35.9); MEAN CELL VOLUME 93.3 fl (80-96); MEAN PLT VOLUME 7.5 fl (7.5-11.1); MONO % 9.8 % (3.8-10.2); NEUT % 67.7 % (42.8-82.8); PLATELET COUNT 237 K/MM3 (134-434); RBC 4.17 M/mm3 (4.00-5.60); RDW 14.2 % (11.9-15.9); WHITE BLOOD COUNT 7.7 K/mm3 (4.0-10.0)
[2020-01-06 12:46] LABS: INR 1.08 (0.83-1.09); PROTHROMBIN TIME (PATIENT) 12.8 SEC (9.7-13.0)
[2020-01-06 12:49] LABS: ACTIVATED PTT 31.8 SECONDS (25.2-36.5)
[2020-01-06 13:31] LABS: ALBUMIN 3.5 g/dl (3.4-5.0); ALK PHOS 144 U/L (45-117); ANION GAP 8 MMOL/L (8-16); BILIRUBIN,TOTAL 0.4 mg/dL (0.2-1); BLOOD UREA NITROGEN 28.8 mg/dL (7-18); CALCIUM 8.9 mg/dL (8.5-10.1); CHLORIDE 100 mmol/L (98-107); CO2 26 mmol/L (21-32); CREATININE 1.2 mg/dL (0.55-1.3); GLUCOSE,RANDOM 183 mg/dL (74-106); POTASSIUM 4.6 mmol/L (3.5-5.1); SGOT/AST 218 U/L (15-37); SGPT/ALT 67 U/L (13-61); SODIUM 134 mmol/L (136-145); TOT PROT 6.6 g/dl (6.4-8.2)
--- NOTE | 2020-01-06 13:54 | EKG ---
Test Reason : Blood Pressure : / mmHG Vent. Rate : 071 BPM Atrial Rate : 071 BPM P-R Int : 192 ms QRS Dur : 100 ms QT Int : 392 ms P-R-T Axes : 085 029 057 degrees QTc Int : 425 ms NORMAL SINUS RHYTHM INCOMPLETE RIGHT BUNDLE BRANCH BLOCK NONSPECIFIC T WAVE ABNORMALITY ABNORMAL ECG WHEN COMPARED WITH ECG OF 05-OCT-2019 08:15, NONSPECIFIC T WAVE ABNORMALITY, WORSE IN LATERAL LEADS Confirmed by Peterson Awad ([id number]) on 01/06/2020 1:54:10 PM Referred By: Confirmed By:Peterson Awad
--- NOTE | 2020-01-06 14:55 | CON.CARD ---
Consult Consult Specialty:: Cardiology Reason for Consultation:: Patient developed chest pain and syncope yesterday. He was taken by an ambulance to [facility], from which he signed AMA. - History of Present Illness History of Present Illness: Patient developed chest pain and syncope yesterday. He was taken by an ambulance to [facility], from which he signed AMA. PMH; Major events Triple Bypass Bioprostatic Aortic Valve [facility] [place] 2016 Nuclear MIBI stress March 2017 negative Cardiac Cath @ [facility] by 10/01/19 Calcified arteries Left Main 30% LAD proximal 60%, mid 95%, distal 100% D2 90% medium size long vessel LCx proximal 100% OM1 100% OM2 100% Ramus 90% medium size long vessel RCA proximal 70%, mid 70%, distal 50%, RPDA 90% SVG to OM2 patent with mild distal disease burns [place] arteries MALHOTRA to LAD patent with mild to moderate distal disease burns paiute vessel Ongoing medical problems Type II diabetes mellitus Hypertension Hyperlipidemia AVR CABG 2016 Carotid duplex May 2019 Conclusions 1. Examination of the carotid arteries reveal mild to moderate plaque to both sides. There is 20 to 50% in the right mid to distal CCA and proximal ICA. In the left BULB there is 20 to 50% narrowing. Normal velocities with antegrade vertebral flow. 2019 - Large Liver hepatoma treated at - no evidence of metastasis- awaiting IR evaluation for posible embolization chemotheraphy. - History Source History Provided By: Patient, Medical Record - Past Medical History Cardio/Vascular: Yes: Aortic Stenosis, CAD Endocrine: Yes: Diabetes Mellitus - Past Surgical History Past Surgical History: Yes: CABG - Alcohol/Substance Use Hx Alcohol Use: No - Smoking History Smoking history: Former smoker Have you smoked in the past 12 months: No If you are a former smoker, when did you quit?: 1994 Home Medications - Allergies Allergies/Adverse Reactions: Allergies Allergy/AdvReac Type Severity Reaction Status Date / Time bee venom protein (honey bee) Allergy Verified 01/06/20 10:47 lidocaine Allergy "gets very Verified 01/06/20 10:47 ill" - Home Medications Home Medications: Ambulatory Orders Aspirin [Aspirin EC] 81 mg PO HS 04/19/19 Clopidogrel Bisulfate [Plavix] 75 mg PO DAILY 04/19/19 Lisinopril 20 mg PO DAILY 04/19/19 Metoprolol Tartrate 50 500s PO DAILY 04/19/19 Tamsulosin HCl [Flomax] 0.4 mg PO HS 04/19/19 Rosuvastatin [Crestor -] 5 mg PO HS 10/05/19 Cholecalciferol (Vitamin D3) [Vitamin D] 50 mcg PO DAILY 10/21/19 Cholecalciferol (Vitamin D3) [Vitamin D3] 50 mcg PO DAILY 01/06/20 Isosorbide Mononitrate [Isosorbide Mononitrate ER] 30 mg PO DAILY 01/06/20 Omeprazole 40 mg PO DAILY 01/06/20 Review of Systems - Review of Systems Constitutional: reports: No Symptoms Eyes: reports: No Symptoms HENT: reports: No Symptoms Neck: reports: No Symptoms Cardiovascular: reports: Chest Pain Gastrointestinal: reports: No Symptoms Genitourinary: reports: No Symptoms Breasts: reports: No Symptoms Reported Musculoskeletal: reports: No Symptoms Integumentary: reports: No Symptoms Neurological: reports: Syncope Endocrine: reports: No Symptoms Hematology/Lymphatic: reports: No Symptoms Psychiatric: reports: No Symptoms Vital Signs: Vital Signs Temperature 97.3 F L 01/06/20 10:47 Pulse Rate 77 01/06/20 10:47 Respiratory Rate 16 01/06/20 10:47 Blood Pressure 122/58 L 01/06/20 10:47 O2 Sat by Pulse Oximetry (%) 99 01/06/20 10:47 Constitutional: Yes: Well Nourished, No Distress, Calm Eyes: Yes: WNL, Conjunctiva Clear, EOM Intact HENT: Yes: WNL, Atraumatic, Normocephalic Neck: Yes: WNL, Supple, Trachea Midline Respiratory: Yes: WNL, Regular, CTA Bilaterally Gastrointestinal: Yes: WNL, Normal Bowel Sounds Renal/: Yes: WNL Cardiovascular: Yes: Regular Rate and Rhythm Heart Sounds: Yes: S1, S2 Murmur: Yes: Systolic Murmur Musculoskeletal: Yes: WNL Extremities: Yes: WNL Integumentary: Yes: WNL Neurological: Yes: WNL, Alert, Oriented ...Motor Strength: WNL Psychiatric: Yes: WNL, Alert, Oriented - Other Data Labs, Other Data: CBC, BMP 01/06/20 12:21 01/06/20 12:21 INR, PTT INR 1.08 (0.83-1.09) 01/06/20 12:21 Troponin, BNP 01/06/20 12:21 Troponin I < 0.02 Troponin, BNP 01/06/20 12:21 Troponin I < 0.02 Imaging - Results Chest X-ray: Image Reviewed (no i/e) EKG: Image Reviewed (sr incomplete RBBB worsening repolarization abnormalities lateral leads.) Problem List - Problems (1) Syncope Code(s): R55 - SYNCOPE AND COLLAPSE (2) Abdominal pain Code(s): R10.9 - UNSPECIFIED ABDOMINAL PAIN Qualifiers: Abdominal location: right upper quadrant Qualified Code(s): R10.11 - Right upper quadrant pain (3) Near syncope Code(s): R55 - SYNCOPE AND COLLAPSE Assessment/Plan Syncope most likely cardiac in origin ( EMS called for witnessed syncope- patient does not recall the event -remembers only angina) taking in consideration anginal chest pain immediately before and significant CAD - occluded graft to RCA and 90% RCA and 90% PDA stenosis Crescendo angina Triple Bypass Bioprostatic Aortic Valve [facility] [place] 2016 Nuclear MIBI stress March 2017 negative Cardiac Cath @ [facility] by 10/01/19 Calcified arteries Left Main 30% LAD proximal 60%, mid 95%, distal 100% D2 90% medium size long vessel LCx proximal 100% OM1 100% OM2 100% Ramus 90% medium size long vessel RCA proximal 70%, mid 70%, distal 50%, RPDA 90% SVG to OM2 patent with mild distal disease [place] arteries MALHOTRA to LAD patent with mild to moderate distal disease burns [place] vessel Type II diabetes mellitus Hypertension Hyperlipidemia AVR CABG 2016 2019 - Large Liver hepatoma treated at - no evidence of metastasis- awaiting IR evaluation for posible embolization chemotheraphy. Plan; Telemetry cont Plavix 75 QD and ASA 81 BB Will arrange c. cath at [facility] for PCI RCA BMS. D/w patient's oncologist Dr. Bernardo Worthy at [facility] , patient's and with Dr. Philip regarding revascularization. cc time spent 70 min
[2020-01-06] MEDS ORDERED: CLOPIDOGREL BISULFATE 300 MG TABLET PO ONE (15:04)
[2020-01-06] MEDS ORDERED: CLOPIDOGREL BISULFATE 300 MG TABLET ONE (15:19)
--- NOTE | 2020-01-06 16:51 | ECHO ---
Name: KALEB CALLE Exam:Adult Echocardiogram Study Date: 01/06/2020 04:02 PM Age: 79 yrs Reason For Study: syncope ashd Height: 68 in Weight: 220 lb BSA: 2.1 m2 MMode/2D Measurements & Calculations IVSd: 1.2 cm Ao root diam: 2.8 cm LVIDd: 4.1 cm LA dimension: 4.0 cm LVIDs: 3.0 cm LVPWd: 1.2 cm EDV(Teich): 74.8 ml LVOT diam: 2.0 cm ESV(Teich): 35.6 ml LVLd ap4: 7.8 cm SV(MOD-sp4): 60.0 ml EDV(MOD-sp4): 102.0 ml LVLs ap4: 6.7 cm ESV(MOD-sp4): 42.0 ml LAV (MOD-bp): 85.0 ml TAPSE: 1.4 cm RV S Christopher: 11.0 cm/sec Doppler Measurements & Calculations MVA(VTI): 1.9 cm2 MV E max christopher: 112.4 cm/sec MV V2 max: 135.3 cm/sec MV A max christopher: 126.1 cm/sec MV max P.3 mmHg MV E/A: 0.89 MV V2 mean: 80.6 cm/sec MV dec time: 0.29 sec MV mean P.0 mmHg MV V2 VTI: 38.3 cm MV P1/2t max christopher: 114.6 cm/sec Ao V2 max: 224.5 cm/sec MV P1/2t: 82.5 msec Ao max P.2 mmHg Ao V2 mean: 149.2 cm/sec MVA(P1/2t): 2.7 cm2 Ao mean P.5 mmHg MV dec slope: 406.9 cm/sec2 Ao V2 VTI: 42.6 cm CHAD(I,D): 1.7 cm2 CHAD(V,D): 1.4 cm2 LV V1 max P.4 mmHg SV(LVOT): 73.2 ml LV V1 mean P.5 mmHg LV V1 max: 104.7 cm/sec LV V1 mean: 74.3 cm/sec LV V1 VTI: 23.8 cm TR max christopher: 226.8 cm/sec PA V2 max: 99.1 cm/sec TR max P.6 mmHg PA max P.9 mmHg Med Peak E' Christopher: 5.9 cm/sec Med E/e': 18.9 Lat Peak E' Christopher: 8.4 cm/sec Lat E/e': 13.4 Procedure A complete two-dimensional transthoracic echocardiogram was performed (2D, M-mode, Doppler and color flow Doppler). Images from the parasternal window were difficult to obtain and are suboptimal in quality. Left Ventricle There is mild concentric left ventricular hypertrophy. The left ventricular ejection fraction is norm al. Ejection Fraction = 55%. E/A reversal consistent with but not diagnostic of poor LV compliance. The l eft ventricular wall motion is normal. Right Ventricle The right ventricle is normal in size and function. Atria Normal left and right atrial size and function. Mitral Valve There is moderate to severe mitral valve thickening. There is trace mitral regurgitation. Tricuspid Valve The tricuspid valve is normal in structure and function. There is mild tricuspid regurgitation. Right ventricular systolic pressure is 25 mmhg. Assuming the RA pressure is 5 mmHg. Aortic Valve There is a bioprosthetic aortic valve. The gradient is normal for this prosthetic aortic valve. Pulmonic Valve The pulmonic valve is not well visualized. Great Vessels The aortic root is normal size. Pericardium/Pleura There is no pericardial effusion. There is no pleural effusion. Interpretation Summary There is mild concentric left ventricular hypertrophy. The left ventricular ejection fraction is normal. Ejection Fraction = 55%. There is moderate to severe mitral valve thickening. There is trace mitral regurgitation. There is mild tricuspid regurgitation. Right ventricular systolic pressure is 25 mmhg. There is a bioprosthetic aortic valve. The gradient is normal for this prosthetic aortic valve. MD Isidro Palafox 01/06/2020 04:50 PM
[2020-01-06] MEDS ORDERED: TAMSULOSIN HCL 0.4 MG CAP PO SCH (22:00)
[2020-01-06] MEDS ORDERED: ROSUVASTATIN CA 5 MG TABLET (FP) PO SCH (22:00)
[2020-01-06] MEDS ORDERED: ASPIRIN COATED 81 MG TABLET.EC PO SCH (22:00)
[2020-01-06] MEDS ORDERED: TAMSULOSIN HCL 0.4 MG CAP ONE (22:04)
[2020-01-06] MEDS ORDERED: METOPROLOL TARTRATE 25 MG TABLET (FP) ONE (22:04)
[2020-01-06] MEDS ORDERED: ASPIRIN COATED 81 MG TABLET.EC ONE (22:04)
--- NOTE | 2020-01-06 22:08 | HP ---
Admitting History and Physical - Primary Care Physician PCP: Taiwo Gastelum - Admission Chief Complaint: Syncope, CP History of Present Illness: Pt with Known CAD, S/p CABG was sitting at his table yesterday felt left sided CP, then passed out; pt estates that didn't have shacking/ tremors/ bit his toungue when passed out. His girlfriend called 911 after he woke up and was taken to [facility]; pt states that didn't have a heart attack and left AMA. 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 History Source: Patient - Past Medical History Cardiovascular: Yes: Aortic Stenosis, CAD, HTN, Hyperlipdemia Gastrointestinal: Yes: Other (Liver CA) Endocrine: Yes: Diabetes Mellitus - Past Surgical History Past Surgical History: Yes: CABG - Smoking History Smoking history: Former smoker Have you smoked in the past 12 months: No If you are a former smoker, when did you quit?: 1994 - Alcohol/Substance Use Hx Alcohol Use: No Home Medications - Allergies Allergies/Adverse Reactions: Allergies Allergy/AdvReac Type Severity Reaction Status Date / Time bee venom protein (honey bee) Allergy Verified 01/06/20 10:47 lidocaine Allergy "gets very Verified 01/06/20 10:47 ill" - Home Medications Home Medications: Ambulatory Orders Aspirin [Aspirin EC] 81 mg PO HS 04/19/19 Clopidogrel Bisulfate [Plavix] 75 mg PO DAILY 04/19/19 Lisinopril 20 mg PO DAILY 04/19/19 Metoprolol Tartrate 50 500s PO DAILY 04/19/19 Tamsulosin HCl [Flomax] 0.4 mg PO HS 04/19/19 Rosuvastatin [Crestor -] 5 mg PO HS 10/05/19 Cholecalciferol (Vitamin D3) [Vitamin D] 50 mcg PO DAILY 10/21/19 Cholecalciferol (Vitamin D3) [Vitamin D3] 50 mcg PO DAILY 01/06/20 Isosorbide Mononitrate [Isosorbide Mononitrate ER] 30 mg PO DAILY 01/06/20 Omeprazole 40 mg PO DAILY 01/06/20 Review of Systems - Review of Systems Constitutional: denies: Chills, Fever Eyes: denies: Blind Spots, Blurred Vision, Double Vision, Recent Change in Vision HENT: denies: Ear Discharge, Ear Pain, Epistaxis, Nasal Congestion, Throat Pain Neck: denies: Stiffness, Tenderness Cardiovascular: denies: Edema, Palpitations, Shortness of Breath Respiratory: denies: Cough, Hemoptysis, Wheezing Gastrointestinal: denies: Abdominal Pain, Diarrhea, Nausea, Vomiting Genitourinary: denies: Burning, Dysuria, Flank Pain Musculoskeletal: denies: Back Pain, Joint Pain, Joint Swelling, Muscle Pain Integumentary: denies: Blister, Bruising, Rash Neurological: denies: Change in Speech, Confusion, Incoordination, Numbness, Unsteady Gait, Weakness Endocrine: denies: Excessive Sweating, Intolerance to Cold Hematology/Lymphatic: denies: Easily Bruised, Excessive Bleeding Psychiatric: denies: Anxiety, Depression Physical Examination Vital Signs: Vital Signs Temperature 97.3 F L 01/06/20 10:47 Pulse Rate 66 01/06/20 16:47 Respiratory Rate 20 01/06/20 16:47 Blood Pressure 104/52 L 01/06/20 16:47 O2 Sat by Pulse Oximetry (%) 94 L 01/06/20 16:47 Constitutional: Yes: No Distress, Calm Eyes: Yes: EOM Intact. No: Diplopia HENT: No: Epistaxis, Nasal Congestion, Rhinnorhea Neck: No: Trachea Midline, Lymphadenopathy Cardiovascular: Yes: Regular Rate and Rhythm, S1, S2 Respiratory: Yes: Regular, CTA Bilaterally. No: Rales Gastrointestinal: Yes: Normal Bowel Sounds, Soft, Abdomen, Obese. No: Tenderness ...Rectal Exam: Yes: Deferred Renal/: No: CVA Tenderness - Left, CVA Tenderness - Right Musculoskeletal: No: Joint Stiffness, Joint Swelling Extremities: No: Cold, Cool, Cyanosis Edema: No Integumentary: No: Bruising, Erythema, Rash Neurological: Yes: Alert, Oriented, Other (symmetric sensory an dmotor exam in UE/ LE/ face) Psychiatric: Yes: Alert, Oriented Labs: CBC, BMP 01/06/20 12:21 01/06/20 12:21 Imaging - Results Chest X-ray: Report Reviewed Problem List - Problems (1) Syncope Code(s): R55 - SYNCOPE AND COLLAPSE (2) CAD (coronary artery disease) Code(s): I25.10 - ATHSCL HEART DISEASE OF [place] CORONARY ARTERY W/O ANG PCTRS (3) Hx of CABG Code(s): Z95.1 - PRESENCE OF AORTOCORONARY BYPASS GRAFT (4) Liver cancer Code(s): C22.9 - MALIG NEOPLASM OF LIVER, NOT SPECIFIED PRIMARY OR SEC (5) Obesity Code(s): E66.9 - OBESITY, UNSPECIFIED Assessment/Plan Admit to Telemetry Serial CE Cardiology Consult. AM Labs
[2020-01-06] MEDS: METOPROLOL TARTRATE 25 MG TABLET (FP) PO SCH (22:17)
[2020-01-07 04:02] VITALS: BMI 33.3
[2020-01-07 08:23] VITALS: PULSE 69
[2020-01-07] MEDS: METOPROLOL TARTRATE 25 MG TABLET (FP) PO SCH (09:21)
--- NOTE | 2020-01-07 09:32 | CON.CARD ---
Consult - History of Present Illness History of Present Illness: Patient developed chest pain and syncope yesterday. He was taken by an ambulance to [facility] ER, from which he signed AMA. PMH; Major events Triple Bypass Bioprostatic Aortic Valve [facility] [place] 2016 Nuclear MIBI stress March 2017 negative Cardiac Cath @ [facility] by 10/01/19 Calcified arteries Left Main 30% LAD proximal 60%, mid 95%, distal 100% D2 90% medium size long vessel LCx proximal 100% OM1 100% OM2 100% Ramus 90% medium size long vessel RCA proximal 70%, mid 70%, distal 50%, RPDA 90% SVG to OM2 patent with mild distal disease [place] arteries MALHOTRA to LAD patent with mild to moderate distal disease [place] vessel Ongoing medical problems Type II diabetes mellitus Hypertension Hyperlipidemia AVR CABG 2016 Carotid duplex May 2019 Conclusions 1. Examination of the carotid arteries reveal mild to moderate plaque to both sides. There is 20 to 50% in the right mid to distal CCA and proximal ICA. In the left BULB there is 20 to 50% narrowing. Normal velocities with antegrade vertebral flow. 2019 - Large Liver hepatoma treated at - no evidence of metastasis- awaiting IR evaluation for posible embolization chemotheraphy. - History Source History Provided By: Patient, Medical Record - Past Medical History Cardio/Vascular: Yes: Aortic Stenosis, CAD Gastrointestinal: Yes: Other (Liver CA) Endocrine: Yes: Diabetes Mellitus - Past Surgical History Past Surgical History: Yes: CABG - Alcohol/Substance Use Hx Alcohol Use: No - Smoking History Smoking history: Former smoker Have you smoked in the past 12 months: No If you are a former smoker, when did you quit?: 1994 Home Medications - Allergies Allergies/Adverse Reactions: Allergies Allergy/AdvReac Type Severity Reaction Status Date / Time bee venom protein (honey bee) Allergy Verified 01/06/20 10:47 lidocaine Allergy "gets very Verified 01/06/20 10:47 ill" - Home Medications Home Medications: Ambulatory Orders Aspirin [Aspirin EC] 81 mg PO HS 04/19/19 Clopidogrel Bisulfate [Plavix] 75 mg PO DAILY 04/19/19 Lisinopril 20 mg PO DAILY 04/19/19 Metoprolol Tartrate 50 500s PO DAILY 04/19/19 Tamsulosin HCl [Flomax] 0.4 mg PO HS 04/19/19 Rosuvastatin [Crestor -] 5 mg PO HS 10/05/19 Cholecalciferol (Vitamin D3) [Vitamin D] 50 mcg PO DAILY 10/21/19 Cholecalciferol (Vitamin D3) [Vitamin D3] 50 mcg PO DAILY 01/06/20 Isosorbide Mononitrate [Isosorbide Mononitrate ER] 30 mg PO DAILY 01/06/20 Omeprazole 40 mg PO DAILY 01/06/20 Review of Systems - Review of Systems Constitutional: reports: No Symptoms Eyes: reports: No Symptoms HENT: reports: No Symptoms Neck: reports: No Symptoms Cardiovascular: reports: Chest Pain Gastrointestinal: reports: No Symptoms Genitourinary: reports: No Symptoms Breasts: reports: No Symptoms Reported Musculoskeletal: reports: No Symptoms Integumentary: reports: No Symptoms Neurological: reports: Syncope Endocrine: reports: No Symptoms Hematology/Lymphatic: reports: No Symptoms Psychiatric: reports: No Symptoms Vital Signs: Vital Signs Temperature 98.3 F 01/07/20 06:00 Pulse Rate 69 01/07/20 06:00 Respiratory Rate 15 01/07/20 06:00 Blood Pressure 147/81 01/07/20 06:00 O2 Sat by Pulse Oximetry (%) 94 L 01/07/20 08:00 Constitutional: Yes: Well Nourished, No Distress, Calm Eyes: Yes: WNL, Conjunctiva Clear, EOM Intact HENT: Yes: WNL, Atraumatic, Normocephalic Neck: Yes: WNL, Supple, Trachea Midline Respiratory: Yes: WNL, Regular, CTA Bilaterally Gastrointestinal: Yes: WNL, Normal Bowel Sounds Renal/: Yes: WNL Cardiovascular: Yes: WNL, Regular Rate and Rhythm Musculoskeletal: Yes: WNL Extremities: Yes: WNL Integumentary: Yes: WNL Neurological: Yes: WNL, Alert, Oriented ...Motor Strength: WNL Psychiatric: Yes: WNL, Alert, Oriented - Other Data Labs, Other Data: CBC, BMP 01/06/20 12:21 01/06/20 12:21 INR, PTT INR 1.08 (0.83-1.09) 01/06/20 12:21 Troponin, BNP 01/06/20 01/07/20 12:21 01:13 Troponin I < 0.02 < 0.02 Troponin, BNP 01/06/20 01/07/20 12:21 01:13 Troponin I < 0.02 < 0.02 Imaging - Results Chest X-ray: Image Reviewed (no i/e) EKG: Image Reviewed (sr incomplete RBBB rep abn) Problem List - Problems (1) Syncope Code(s): R55 - SYNCOPE AND COLLAPSE (2) Abdominal pain Code(s): R10.9 - UNSPECIFIED ABDOMINAL PAIN Qualifiers: Abdominal location: right upper quadrant Qualified Code(s): R10.11 - Right upper quadrant pain (3) Near syncope Code(s): R55 - SYNCOPE AND COLLAPSE Assessment/Plan Syncope most likely cardiac in origin ( EMS called for witnessed syncope- patient does not recall the event -remembers only angina) taking in consideration anginal chest pain immediately before and significant CAD - occluded graft to RCA and 90% RCA and 90% PDA stenosis [place] angina Triple Bypass Bioprostatic Aortic Valve [facility] [place] 2016 Nuclear MIBI stress March 2017 negative Cardiac Cath @ [facility] by 10/01/19 Calcified arteries Left Main 30% LAD proximal 60%, mid 95%, distal 100% D2 90% medium size long vessel LCx proximal 100% OM1 100% OM2 100% Ramus 90% medium size long vessel RCA proximal 70%, mid 70%, distal 50%, RPDA 90% SVG to OM2 patent with mild distal disease [place] arteries MALHOTRA to LAD patent with mild to moderate distal disease [place] vessel Type II diabetes mellitus Hypertension Hyperlipidemia AVR CABG 2016 2019 - Large Liver hepatoma treated at - no evidence of metastasis- awaiting IR evaluation for posible embolization chemotheraphy. Plan; Telemetry cont Plavix 75 QD and ASA 81 BB Will arrange c. cath at [facility] for PCI RCA BMS. D/w patient's oncologist Dr. Bernardo Worthy at [facility] , patient's and with Dr. Philip regarding revascularization. cc time spent 70 min
[2020-01-07] MEDS ORDERED: LISINOPRIL 20 MG TABLET (FP) PO SCH (10:00)
[2020-01-07] MEDS ORDERED: ISOSORBIDE MONONITRATE 30 MG TAB.SR.24H (FP) PO SCH (10:00)
[2020-01-07] MEDS ORDERED: CLOPIDOGREL BISULFATE 75 MG TABLET (FP) PO SCH ×2 (10:00)
[2020-01-07] MEDS ORDERED: PANTOPRAZOLE 40 MG TABLET PO SCH (10:00)
[2020-01-07 13:05] VITALS: BP 121/64; TEMP 98.2
== END 2020-01-07 15:00 | disposition short-term general hospital (02) | DRG 312 ==
LOC: JER 10:41 → JERBED 14:07 → J2W 01-07 02:53
PROVIDERS: ADMIT Specialist; ATTEND Specialist
DX: R55 Syncope and collapse (principal); I25.10 Atherosclerotic heart disease of native coronary artery without angina pectoris; E11.9 Type 2 diabetes mellitus without complications; I10 Essential (primary) hypertension; E78.5 Hyperlipidemia, unspecified; R10.9 Unspecified abdominal pain; Z95.1 Presence of aortocoronary bypass graft; Z87.891 Personal history of nicotine dependence; Z85.05 Personal history of malignant neoplasm of liver
CPT/HCPCS: 36415; 71045-TC-FY; 80053; 82550; 84484; 85025; 85610; 85730; 93005; 93010; 93306-TC; 99285-25

== ENCOUNTER 2020-02-04 14:04 | Inpatient (IN) | payer OTHER ==
--- NOTE | 2020-02-04 14:17 | PDOC ---
Rapid Medical Evaluation Chief Complaint: Shortness of Breath Time Seen by Provider: 02/04/20 14:09 Medical Evaluation: Allergies Allergy/AdvReac Type Severity Reaction Status Date / Time bee venom protein (honey bee) Allergy Verified 01/06/20 10:47 lidocaine Allergy "gets very Verified 01/06/20 10:47 ill" Discharge Disposition - Discharge Dispostion Condition at time of disposition: Stable - Referrals - Patient Instructions - Post Discharge Activity
--- NOTE | 2020-02-04 14:33 | PDOC ---
History of Present Illness - General Chief Complaint: Shortness of Breath Stated Complaint: DIFFICULTY BREATHING Time Seen by Provider: 02/04/20 14:09 History Source: Patient Exam Limitations: No Limitations - History of Present Illness Initial Comments: 79-year-old male with past medical history of hypertension, hyperlipidemia, triple CABG 2016, CAD, diabetes, liver cancer (diagnosed 10/2019, no treatment yet), former everyday ETOH user (4-5 beers a day), former nicotine user (quit x25 years) presented to the emergency department for shortness of breath since this morning. Patient reported he feels more short of breath while walking, but also feels short of breath while sitting resting. He reported that he attempted to eat a mozzarella stick at lunch, immediately felt nauseous and vomited one time, prompting him to come to the ED. He denied other episodes of vomiting, diarrhea, abdominal pain, fever. Patient denied chest pain, back pain, lightheadedness, lower extremity swelling, cough, sputum production. Patient reported he was diagnosed with liver cancer in October, but is in the process of starting treatment. Pt reported he last took ASA 81 mg PO last night. Pt had cath in Jan, no stent. ROS General: admitted to generalized weakness. denied fever, chills. HEENT: denied sore throat, rhinorrhea, ear pain. Cardiovascular: denied chest pain, palpitations, syncope, diaphoresis. Respiratory: admitted to shortness of breath, HARTMAN. denied cough, sputum product ion, hemoptysis, lower extremity swelling. Gastrointestinal: denied abdominal pain, nausea, vomiting, diarrhea, constipation, blood in stool. Genitourinary: denied dysuria, increased urinary frequency, hematuria, urinary incontinence, flank pain. Back: denied back pain. Musculoskeletal: denied joint pain, muscle pain, joint swelling. Neurological: denied headache, dizziness, numbness, tingling, weakness. Integumentary: denied rash, laceration, abrasion. Hematologic/Lymphatic: denied bruising or bleeding. PE Constitutional: Well-nourished, Well-developed, appearing stated age. HEENT: head is normocephalic, atraumatic. EOMI. PERRLA. Neck: supple. Full ROM. Cardiovascular: regular heart rhythm. Normal S1 and S2. no murmurs. no pericardial friction rub. Respiratory: clear to auscultation bilaterally. no crackles, rhonchi or wheezing. no stridor. Gastrointestinal: soft, flat, nontender. normal bowel sounds. no rebound, guarding, or masses. Extremities: peripheral pulses intact and equal. no lower extremity edema noted. Neurological: CN 2-12 grossly intact. moves all four extremities. Psych: awake, alert, oriented x3. follows commands. answers questions appropriately. Past History - Past Medical History Allergies/Adverse Reactions: Allergies Allergy/AdvReac Type Severity Reaction Status Date / Time bee venom protein (honey bee) Allergy Verified 01/06/20 10:47 lidocaine Allergy "gets very Verified 01/06/20 10:47 ill" Home Medications: Ambulatory Orders Aspirin [Aspirin EC] 81 mg PO HS 04/19/19 Clopidogrel Bisulfate [Plavix] 75 mg PO DAILY 04/19/19 Lisinopril 20 mg PO DAILY 04/19/19 Metoprolol Tartrate 50 500s PO DAILY 04/19/19 Tamsulosin HCl [Flomax] 0.4 mg PO HS 04/19/19 Rosuvastatin [Crestor -] 5 mg PO HS 10/05/19 Cholecalciferol (Vitamin D3) [Vitamin D] 50 mcg PO DAILY 10/21/19 Cholecalciferol (Vitamin D3) [Vitamin D3] 50 mcg PO DAILY 01/06/20 Isosorbide Mononitrate [Isosorbide Mononitrate ER] 30 mg PO DAILY 01/06/20 Omeprazole 40 mg PO DAILY 01/06/20 - Immunization History Immunization Up to Date: Yes - Psycho Social/Smoking Cessation Hx Smoking History: Never smoked Have you smoked in the past 12 months: No If you are a former smoker, when did you quit?: 1994 Information on smoking cessation initiated: No Hx Alcohol Use: No Drug/Substance Use Hx: No Substance Use Type: None Hx Substance Use Treatment: No *Physical Exam - Vital Signs Last Vital Signs Temp Pulse Resp BP Pulse Ox 97.6 F 84 16 86/44 L 95 02/04/20 14:06 02/04/20 14:06 02/04/20 14:06 02/04/20 14:06 02/04/20 14:06 ED Treatment Course - LABORATORY CBC & Chemistry Diagram: 02/04/20 14:20 02/04/20 16:30 Medical Decision Making - Medical Decision Making 79 year old male with above PMH presented to ED for shortness of breath, HARTMAN since this AM, associated with 1 episode of nausea, vomiting. Initial Vital Signs Temp Pulse Resp BP Pulse Ox 97.6 F 84 16 86/44 L 95 02/04/20 14:06 02/04/20 14:06 02/04/20 14:06 02/04/20 14:06 02/04/20 14:06 Afebrile. No tachycardia. No tachypnea. Hypotensive. No hypoxia on room air. EKG performed at 1432: rate 72, regular rhythm, normal axis, normal intervals, no acute ST changes. CXR report: Marcos Valdez Name: KALEB CALLE DEPARTMENT OF RADIOLOGY Phys: Sujey Lindsay RESIDENT : 1940 Age: 79 Sex: M [facility] Acct: [id number] Loc: [facility] Exam Date: 02/04/20 Status: [place] [address] Unit Number: [id number] EXAM#: TYPE/EXAM: RESULT: [id number] RAD/CHEST X-RAY PORTABLE* Chest: Shortness of breath A single view of the chest has been submitted. There are sternal sutures, this right shoulder surgery, clear lungs, normal mediastinum and intact soft tissues. There are degenerative spine and shoulder changes. Since 01/06/2020 at 1205 hours there is no change of an adverse nature. Correlation recommended. Reported By: Anish Zamudio MD 02/04/20 8039 Bedside POCUS US of IVC showed respiratory collapse - performed by Dr. Concepcion, EM Attending US Fellowship trained. Bedside POCUS US of heart showed no pericardial effusion, good squeeze, mild RV dilation - performed by Dr. Concepcion, EM Attending US Fellowship trained. Medications ordered: ASA 324 PO chew once, normal saline bolus 1000 cc once 02/04/20 15:44 Laboratory Last Values WBC 8.3 K/mm3 (4.0-10.0) 02/04/20 14:20 RBC 3.83 M/mm3 (4.00-5.60) L 02/04/20 14:20 Hgb 12.1 GM/dL (11.7-16.9) 02/04/20 14:20 Hct 35.1 % (35.4-49) L 02/04/20 14:20 MCV 91.6 fl (80-96) 02/04/20 14:20 MCH 31.6 pg (25.7-33.7) 02/04/20 14:20 MCHC 34.5 g/dl (32.0-35.9) 02/04/20 14:20 RDW 13.8 % (11.9-15.9) 02/04/20 14:20 Plt Count 289 K/MM3 (134-434) D 02/04/20 14:20 MPV 7.5 fl (7.5-11.1) 02/04/20 14:20 Absolute Neuts (auto) 6.6 K/mm3 (1.5-8.0) 02/04/20 14:20 Neutrophils % 79.9 % (42.8-82.8) 02/04/20 14:20 Lymphocytes % 9.9 % (8-40) D 02/04/20 14:20 Monocytes % 7.7 % (3.8-10.2) 02/04/20 14:20 Eosinophils % 1.7 % (0-4.5) 02/04/20 14:20 Basophils % 0.8 % (0-2.0) 02/04/20 14: Nucleated RBC % 0 % (0-0) 02/04/20 14:20 PT with INR 13.30 SEC (9.7-13.0) H 02/04/20 14:20 INR 1.13 (0.83-1.09) H 02/04/20 14:20 PTT (Actin FS) 33.3 SECONDS (25.2-36.5) 02/04/20 14:20 VBG pH 7.41 (7.31-7.41) 02/04/20 14:20 POC VBG pCO2 40.4 mmHg (38-52) 02/04/20 14:20 POC VBG pO2 < 49 mmHg (28-48) H 02/04/20 14:20 VBG HCO3 25.2 mmol/L (23-29) 02/04/20 14:20 VBG O2 Sat (Mateo) 71.7 % (70-80) 02/04/20 14:20 VBG Base Excess 1.0 meq/l (-2-2) 02/04/20 14:20 Sodium 136 mmol/L (136-145) 02/04/20 14:20 Potassium 4.5 mmol/L (3.5-5.1) 02/04/20 14:20 Chloride 102 mmol/L (98-107) 02/04/20 14:20 Carbon Dioxide 26 mmol/L (21-32) 02/04/20 14:20 Anion Gap 8 MMOL/L (8-16) 02/04/20 14:20 BUN 28.2 mg/dL (7-18) H 02/04/20 14:20 Creatinine 1.6 mg/dL (0.55-1.3) H 02/04/20 14:20 Est GFR (CKD-EPI)AfAm 47.12 02/04/20 14:20 Est GFR (CKD-EPI)NonAf 40.66 02/04/20 14:20 Random Glucose 167 mg/dL (74-106) H 02/04/20 14:20 Lactic Acid 1.7 mmol/L (0.4-2.0) 02/04/20 14:20 Calcium 9.0 mg/dL (8.5-10.1) 02/04/20 14:20 Magnesium 1.8 mg/dL (1.8-2.4) 02/04/20 14:20 Total Bilirubin 0.7 mg/dL (0.2-1) 02/04/20 14:20 AST 174 U/L (15-37) H 02/04/20 14:20 ALT 52 U/L (13-61) 02/04/20 14:20 Alkaline Phosphatase 185 U/L (45-117) H 02/04/20 14:20 Troponin I < 0.02 ng/ml (0.00-0.05) 02/04/20 14:20 B-Natriuretic Peptide 479.4 pg/ml (5-450) H 02/04/20 14:20 Total Protein 6.5 g/dl (6.4-8.2) 02/04/20 14:20 Albumin 3.2 g/dl (3.4-5.0) L 02/04/20 14:20 Lipase 303 U/L (73-393) 02/04/20 14:20 No leukocytosis. No anemia. No acidosis. JEANA, last Cr 1.2 -Additional normal saline bolus 500 cc ordered -Will repeat, needs IV contrast for CTA Transaminitis Elevated BNP Undetectable troponin Lipase wnl No lactic acidosis 02/04/20 16:17 Repeat EKG performed at 1612: rate 71, regular rhythm, normal axis, normal intervals, no acute ST changes. Vital Signs Temperature 97.6 F 02/04/20 14:06 Pulse Rate 85 02/04/20 15:54 Respiratory Rate 18 02/04/20 15:54 Blood Pressure 98/53 L 02/04/20 15:54 O2 Sat by Pulse Oximetry (%) 98 02/04/20 15:54 02/04/20 16:[address] Gonzalez at bedside. Appreciate his note. 02/04/20 17:38 CBC, BMP 02/04/20 14:20 02/04/20 16:30 Repeat BMP unchanged. Labs ordered: D-dimer added on. Imaging ordered: bilateral duplex US 02/04/20 18:27 US report: Marcos Valdez Name: KALEB CALLE DEPARTMENT OF RADIOLOGY Phys: Sujey Lindsay RESIDENT : 1940 Age: 79 Sex: M [facility] Acct: [id number] Loc: [address] Exam Date: 02/04/20 Status: [place] [address] Unit Number: [id number] EXAM#: TYPE/EXAM: RESULT: [id number] US/DUPLEX VASCUL US-2LEGS Bilateral lower extremity venous ultrasound Clinical information given: evaluate for DVT The exam was performed utilizing compression, grayscale, color flow and doppler sonography. There is no sonographic evidence of deep vein thrombosis. If there is clinical concern for possible isolated calf DVT or if there is a cl inical diagnosis of uncomplicated superficial thrombophlebitis, then correlation with close follow up sonography is suggested. No obvious popliteal fossa cyst is noted. Impression: No DVT is identified involving either leg. Please see above. Reported By: Ammon Aleman MD 02/04/20 1824 D-dimer 2500+ High concern for PE, hx of untreated malignancy, but hesitant to blinding anticoagulate without imaging confirmation. Will call Dr. Gastelum and discuss case. 02/04/20 18:55 Pt signed out to night resident. Pending discussion with Dr. Gastelum for recs and admission. Discharge - Discharge Information Problems reviewed: Yes Clinical Impression/Diagnosis: Shortness of breath, JEANA (acute kidney injury) - Follow up/Referral Referrals: Taiwo Gastelum MD [Primary Care Provider] - - Patient Discharge Instructions - Post Discharge Activity
--- NOTE | 2020-02-04 14:39 | CON.CARD ---
Consult Consult Specialty:: cardiology Reason for Consultation:: weakness; hx 3VD, CABG, recent coronary angiogram - History of Present Illness Chief Complaint: Pt A&Ox3; wants to go home. His says she worried when he began choking on food."He has been deteriorating in ths past several weeks", according to her. History of Present Illness: Mr Voss is a 79-year-old white male with past medical history of hypertension, hyperlipidemia, CABG 2016, CAD, diabetes, liver cancer (diagnosed 10/2019, no treatment yet), former everyday ETOH user (4-5 beers a day), former nicotine user (quit x25 years) presented to the emergency department for shortness of breath since this morning. Patient reported he feels more short of breath while walking, but also feels short of breath while sitting resting. He reported that he attempted to eat a mozzarella stick at lunch, immediately felt nauseous and vomited one time, prompting him to come to the ED. He denied other episodes of vomiting, diarrhea, abdominal pain, fever. Patient denied chest pain, back pain, lightheadedness, lower extremity swelling, cough, sputum production. Patient reported he was diagnosed with liver cancer in October, but is in the process of starting treatment. Pt reported he last took ASA 81 mg PO last night. Pt had cath in Jan, no stent. - History Source History Provided By: Patient, Family Member ( and sister are at bedside), Medical Record Limitations to Obtaining History: No Limitations - Past Medical History Cardio/Vascular: Yes: Aortic Stenosis, CAD Gastrointestinal: Yes: Other (Liver CA) Endocrine: Yes: Diabetes Mellitus - Past Surgical History Past Surgical History: Yes: CABG - Alcohol/Substance Use Hx Alcohol Use: No - Smoking History Smoking history: Never smoked Have you smoked in the past 12 months: No If you are a former smoker, when did you quit?: 1994 Home Medications - Allergies Allergies/Adverse Reactions: Allergies Allergy/AdvReac Type Severity Reaction Status Date / Time bee venom protein (honey bee) Allergy Verified 01/06/20 10:47 lidocaine Allergy "gets very Verified 01/06/20 10:47 ill" - Home Medications Home Medications: Ambulatory Orders Aspirin [Aspirin EC] 81 mg PO HS 04/19/19 Clopidogrel Bisulfate [Plavix] 75 mg PO DAILY 04/19/19 Lisinopril 20 mg PO DAILY 04/19/19 Metoprolol Tartrate 50 500s PO DAILY 04/19/19 Tamsulosin HCl [Flomax] 0.4 mg PO HS 04/19/19 Rosuvastatin [Crestor -] 5 mg PO HS 10/05/19 Cholecalciferol (Vitamin D3) [Vitamin D] 50 mcg PO DAILY 10/21/19 Cholecalciferol (Vitamin D3) [Vitamin D3] 50 mcg PO DAILY 01/06/20 Isosorbide Mononitrate [Isosorbide Mononitrate ER] 30 mg PO DAILY 01/06/20 Omeprazole 40 mg PO DAILY 01/06/20 Vital Signs: Vital Signs Temperature 97.6 F 02/04/20 14:06 Pulse Rate 84 02/04/20 14:06 Respiratory Rate 16 02/04/20 14:06 Blood Pressure 86/44 L 02/04/20 14:06 O2 Sat by Pulse Oximetry (%) 95 02/04/20 14:06
[2020-02-04] MEDS ORDERED: ASPIRIN 81 MG CHEWABLE TABLETS PO ONE (14:41)
[2020-02-04] MEDS ORDERED: ASPIRIN 81 MG CHEWABLE TABLETS ONE (14:51)
[2020-02-04] MEDS ORDERED: SODIUM CHLORIDE 1,000 ML IV STA ×2 (14:54→20:19)
[2020-02-04 15:06] LABS: BASO % 0.8 % (0-2.0); EOS % 1.7 % (0-4.5); HEMATOCRIT 35.1 % (35.4-49); HEMOGLOBIN 12.1 GM/dL (11.7-16.9); LYMPH % 9.9 % (8-40); MCH 31.6 pg (25.7-33.7); MCHC 34.5 g/dl (32.0-35.9); MEAN CELL VOLUME 91.6 fl (80-96); MEAN PLT VOLUME 7.5 fl (7.5-11.1); MONO % 7.7 % (3.8-10.2); NEUT % 79.9 % (42.8-82.8); PLATELET COUNT 289 K/MM3 (134-434); RBC 3.83 M/mm3 (4.00-5.60); RDW 13.8 % (11.9-15.9); WHITE BLOOD COUNT 8.3 K/mm3 (4.0-10.0)
[2020-02-04 15:08] LABS: VENOUS PC02 40.4 mmHg (38-52); VENOUS PH 7.41 (7.31-7.41)
[2020-02-04 15:09] LABS: VENOUS PO2 < 49 mmHg (28-48)
[2020-02-04 15:23] LABS: INR 1.13 (0.83-1.09); PROTHROMBIN TIME (PATIENT) 13.3 SEC (9.7-13.0)
[2020-02-04 15:26] LABS: ACTIVATED PTT 33.3 SECONDS (25.2-36.5)
[2020-02-04 15:31] LABS: ALBUMIN 3.2 g/dl (3.4-5.0); ALK PHOS 185 U/L (45-117); ANION GAP 8 MMOL/L (8-16); BILIRUBIN,TOTAL 0.7 mg/dL (0.2-1); BLOOD UREA NITROGEN 28.2 mg/dL (7-18); CHLORIDE 102 mmol/L (98-107); CO2 26 mmol/L (21-32); CREATININE 1.6 mg/dL (0.55-1.3); GLUCOSE,RANDOM 167 mg/dL (74-106); LIPASE 303 U/L (73-393); MAGNESIUM 1.8 mg/dL (1.8-2.4); N-TERMINAL BNP 479.4 pg/ml (5-450); POTASSIUM 4.5 mmol/L (3.5-5.1); SGOT/AST 174 U/L (15-37); SGPT/ALT 52 U/L (13-61); SODIUM 136 mmol/L (136-145); TOT PROT 6.5 g/dl (6.4-8.2)
[2020-02-04] MEDS ORDERED: SODIUM CHLORIDE 500 ML IV STA (15:43)
--- NOTE | 2020-02-04 16:00 | PDOC ---
Documentation entered by Gregg Mercedes SCRIBE, acting as scribe for J Carlos Braga MD. J Carlos Braga MD: This documentation has been prepared by the Mago mcdaniel Nirvannie, SCRIBE, under my direction and personally reviewed by me in its entirety. I confirm that the documentation accurately reflects all work, treatment, procedures, and medical decision making performed by me. Attending Attestation - Resident Resident Name: Sujey Lindsay - ED Attending Attestation I have performed the following: I have examined & evaluated the patient, The case was reviewed & discussed with the resident, I agree w/resident's findings & plan, Exceptions are as noted - HPI HPI: 02/04/20 15:12 79y M hx of htn, hl, cad sp CABG/PCI, liver CA (recent dx, but hasnt started hx yet) presents with complaint of sob. Pt notes increased VUONG since this morning and had an episode jonathan vomiting. Pt denies any associated cp, hemoptysis, increased leg swelling, abd pain, back pain, calf pain, fever/chills, n/v. Pts does note some increased vuong Recently last several months. The patient denies any current nausea, Abdominal pain. Exam: GENERAL: The patient is awake, alert, and fully oriented, Nontoxic - in no acute distress. LUNGS: Breath sounds equal, clear to auscultation bilaterally. No wheezes, no rhonchi, no rales. HEART: Regular rate and rhythm, normal S1 and S2 without murmur, rub or gallop. ABDOMEN: Soft, nontender, No guarding, no rebound. No CVA tenderness EXTREMITIES: Normal range of motion, trace edema. NEUROLOGICAL: No facial assymetry, Normal speech, moving all 4 ext spontaneously and symmetrically SKIN: Warm, Dry, normal turgor, Differential for the patient's symptoms includes possible, pneumonia, Pulmonary embolism, metabolic derangements, Cardiac disease Will obtain blood work, chest x-ray, EKG, d-dimer Patient was placed on groundwater monitoring technician - Physicial Exam PE: 02/04/20 19:42 see above - Medical Decision Making 02/04/20 15:59 On the patient's EKG the patient has rate controlled a flutter, This appears new as his prior chest x-ray was normal sinus rhythm. 02/04/20 16:37 The patient's blood tests were reviewed creatinine noted slightly elevated 1.6, will hydrate and recheck prior to CTA 02/04/20 17:50 The patient's repeat creatinine is the same. 02/04/20 19:42 As pts cr is elevated, will treat with ac for preseumptive PE. will admit for further management will admit under service Heart Score/ECG Review - ECG Impressions Comment:: 02/04/20 15:58 Twelve-lead EKG was performed and reviewed by me. regular rate Rate of [address] changes suggestive of acute ischemia ?flutter waves vs artifact 02/04/20 16:36 Twelve-lead EKG was performed and reviewed by me. There is normal sinus rhythm with a normal rate. rate of 71 RSR in V2 No ST changes suggestive of acute ischemia
[2020-02-04 17:30] LABS: BLOOD UREA NITROGEN 28.5 mg/dL (7-18); CALCIUM 8.4 mg/dL (8.5-10.1); CREATININE 1.6 mg/dL (0.55-1.3); POTASSIUM 4.6 mmol/L (3.5-5.1)
--- NOTE | 2020-02-04 22:22 | PDOC ---
*Physical Exam - Vital Signs Last Vital Signs Temp Pulse Resp BP Pulse Ox 98.4 F 69 18 120/60 98 02/04/20 20:40 02/04/20 19:09 02/04/20 19:09 02/04/20 19:09 02/04/20 19:09 02/04/20 22:14 Pt handed off from Dr. Lindsay. Upon further clarification the pt has had long standing SOB. He has seen Dr. Dong for mild-mod chronic interstitial lung dz and reports that he is scheduled for PFTs at the end of the month. Pt reports that he is able to perform ADL's w/o becoming SOB. His at bedside has noted he demonstrates HARTMAN when working on his RV (motor home). Otherwise he generally does not walk far. There is also h/o syncopal episodes in the past and he has a scheduled ECHO. Last ECHO demonstrated NL EF. He is seeing Dr. Moser. He reports no symptoms of volume loss such as diarrhea or vomiting (today's x1 episode of vomiting was food containing). He does endorse decreased water intake. 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 LEFT lingular atelectasis. BL renal cysts. LEFT non-obstructing renal calculi. Degenerative changes in thoraco-lumbar spine. - On [address] Oconnor performed biopsy and fiducial feed placement (for proton radiation) MED LIST CONFIRMED with MSK and at bedside with Pt 1. ASA 81 mg po qd 2. Plavix 75 mg po qd 3. ISMN 30 mg po QD 4. Lisinopril 20 mg po qd 5. Toprol 50 po qd 6. Rosuvastatin 5 mg PO HS 7. Tamsulosin 0.4 mg PO QD 8. Vit d 9. Folate VSS REVIEW OF SYSTEMS CONSTITUTIONAL: Absent: fever, chills, diaphoresis, generalized weakness, malaise, loss of a ppetite, weight change HEENT: Absent: rhinorrhea, nasal congestion, throat pain, throat swelling, difficulty swallowing, mouth swelling, ear pain, eye pain, visual changes CARDIOVASCULAR: Absent: chest pain, syncope, palpitations, irregular heart rate, lightheadedness, peripheral edema RESPIRATORY: Absent: cough, shortness of breath, dyspnea with exertion, orthopnea, wheezing, stridor, hemoptysis GASTROINTESTINAL: Absent: abdominal pain, abdominal distension, nausea, vomiting, diarrhea, co nstipation, melena, hematochezia GENITOURINARY: Absent: dysuria, frequency, urgency, hesitancy, hematuria, flank pain, genital pain MUSCULOSKELETAL: Absent: myalgia, arthralgia, joint swelling, back pain, neck pain SKIN: Absent: rash, itching, pallor HEMATOLOGIC/IMMUNOLOGIC: Absent: easy bleeding, easy bruising, lymphadenopathy, frequent infections ENDOCRINE: Absent: unexplained weight gain, unexplained weight loss, heat intolerance, cold intolerance NEUROLOGIC: Absent: headache, focal weakness or paresthesias, dizziness, unsteady gait, seizure, mental status changes, bladder or bowel incontinence PSYCHIATRIC: Absent: anxiety, depression, suicidal or homicidal ideation, hallucinations. GENERAL: AO x3 NAD HEAD: NCAT EYES: KRISTIN, EOMI, sclera anicteric, conjunctiva clear. No ptosis. ENT: Ears normal, nares patent, oropharynx clear without exudates, moist mucous membranes. NECK: Trachea midline, full range of motion, supple. LUNGS: CTAB , no wheezes, no crackles, no accessory muscle use. HEART: RRR, S1, S2 without murmur, rub or gallop. ABDOMEN: Soft, nontender, nondistended, normoactive bowel sounds, no guarding, no rebound, hepatomegaly, no masses. EXTREMITIES: 2+ pulses, warm, well-perfused, no edema. NEUROLOGICAL: Cranial nerves II through XII grossly intact. Strength 5/5 in UE and LE in both distal and proximal flexors. Brachial reflex 2+ BL. Patellar reflex 2+ BL. No dysdiadochokinesia. FTN NEG. Babinski NEG. Normal speech. Gait not appreciated PSYCH: Normal mood, normal affect. SKIN: Warm, dry, normal turgor, no rashes or lesions noted Discussed case with Dr. Gastelum and given present JEANA will admit to med-surg for treatment ED Treatment Course - LABORATORY CBC & Chemistry Diagram: 02/04/20 14:20 02/04/20 16:30 - ADDITIONAL ORDERS Additional order review: Laboratory Results 02/04/20 02/04/20 02/04/20 16:30 14:22 14:20 PT with INR INR PTT (Actin FS) D-Dimer 2520 H VBG pH POC VBG pCO2 POC VBG pO2 VBG HCO3 VBG O2 Sat (Mateo) VBG Base Excess Sodium 136 Potassium 4.6 Chloride 105 Carbon Dioxide 26 Anion Gap 6 L BUN 28.5 H Creatinine 1.6 H Est GFR (CKD-EPI)AfAm 47.12 Est GFR (CKD-EPI)NonAf 40.66 Random Glucose 162 H Lactic Acid Calcium 8.4 L Magnesium Total Bilirubin AST ALT Alkaline Phosphatase Troponin I B-Natriuretic Peptide Total Protein Albumin Lipase Blood Type O POSITIVE Antibody Screen Negative 02/04/20 02/04/20 02/04/20 14:20 14:20 14:20 PT with INR 13.30 H INR 1.13 H PTT (Actin FS) 33.3 D-Dimer VBG pH 7.41 POC VBG pCO2 40.4 POC VBG pO2 < 49 H VBG HCO3 25.2 VBG O2 Sat (Mateo) 71.7 VBG Base Excess 1.0 Sodium Potassium Chloride Carbon Dioxide Anion Gap BUN Creatinine Est GFR (CKD-EPI)AfAm Est GFR (CKD-EPI)NonAf Random Glucose Lactic Acid 1.7 Calcium Magnesium Total Bilirubin AST ALT Alkaline Phosphatase Troponin I B-Natriuretic Peptide Total Protein Albumin Lipase Blood Type Antibody Screen 02/04/20 14:20 PT with INR INR PTT (Actin FS) D-Dimer VBG pH POC VBG pCO2 POC VBG pO2 VBG HCO3 VBG O2 Sat (Mateo) VBG Base Excess Sodium 136 Potassium 4.5 Chloride 102 Carbon Dioxide 26 Anion Gap 8 BUN 28.2 H Creatinine 1.6 H Est GFR (CKD-EPI)AfAm 47.12 Est GFR (CKD-EPI)NonAf 40.66 Random Glucose 167 H Lactic Acid Calcium 9.0 Magnesium 1.8 Total Bilirubin 0.7 AST 174 H ALT 52 Alkaline Phosphatase 185 H Troponin I < 0.02 B-Natriuretic Peptide 479.4 H Total Protein 6.5 Albumin 3.2 L Lipase 303 Blood Type Antibody Screen 02/04/20 14:20 RBC 3.83 L MCV 91.6 MCHC 34.5 RDW 13.8 MPV 7.5 Neutrophils % 79.9 Lymphocytes % 9.9 D Monocytes % 7.7 Eosinophils % 1.7 Basophils % 0.8 - Medications Given in the ED: ED Medications Discontinued Medications Generic Name Dose Route Start Last Admin Trade Name Ramón PRN Reason Stop Dose Admin Aspirin 324 mg 02/04/20 14:41 02/04/20 14:56 Asa - PO 02/04/20 14:42 324 mg ONCE ONE Administration Sodium Chloride 1,000 mls @ 1,000 mls/hr 02/04/20 14:54 02/04/20 14:56 Normal Saline - IV 02/04/20 15:53 1,000 mls/hr ASDIR STA Administration Sodium Chloride 500 mls @ 500 mls/hr 02/04/20 15:43 02/04/20 15:58 Normal Saline - IV 02/04/20 16:42 500 mls/hr ASDIR STA Administration Sodium Chloride 1,000 mls @ 1,000 mls/hr 02/04/20 20:19 02/04/20 20:36 Normal Saline - IV 02/04/20 21:18 1,000 mls/hr ASDIR STA Administration Discharge - Discharge Information Problems reviewed: Yes Clinical Impression/Diagnosis: Shortness of breath, JEANA (acute kidney injury) Condition: Stable - Admission Yes - Follow up/Referral Referrals: Taiwo Gastelum MD [Primary Care Provider] - - Patient Discharge Instructions - Post Discharge Activity
[2020-02-04] MEDS ORDERED: SODIUM CHLORIDE 1,000 ML IV SCH (22:30)
[2020-02-04] MEDS: METOPROLOL TARTRATE 25 MG TABLET (FP) PO SCH (22:47)
[2020-02-05 02:14] VITALS: BMI 35.0
[2020-02-05] MEDS: CLOPIDOGREL BISULFATE 75 MG TABLET (FP) PO SCH (10:13)
[2020-02-05] MEDS: ISOSORBIDE MONONITRATE 30 MG TAB.SR.24H (FP) PO SCH (10:13)
[2020-02-05] MEDS: METOPROLOL TARTRATE 25 MG TABLET (FP) PO SCH ×2 (10:13→21:03)
[2020-02-05] MEDS: PANTOPRAZOLE 40 MG TABLET PO SCH (10:13)
--- NOTE | 2020-02-05 11:33 | EKG ---
Test Reason : Blood Pressure : / mmHG Vent. Rate : 071 BPM Atrial Rate : 071 BPM P-R Int : 198 ms QRS Dur : 100 ms QT Int : 414 ms P-R-T Axes : 080 007 061 degrees QTc Int : 449 ms NORMAL SINUS RHYTHM RIGHT BUNDLE BRANCH BLOCK Confirmed by YOVANI DICKINSON MD ([id number]) on 02/05/2020 11:33:03 AM Referred By: Confirmed By:YOVANI DICKINSON MD
--- NOTE | 2020-02-05 11:35 | EKG ---
Test Reason : Blood Pressure : / mmHG Vent. Rate : 072 BPM Atrial Rate : 468 BPM P-R Int : 000 ms QRS Dur : 092 ms QT Int : 402 ms P-R-T Axes : 081 009 039 degrees QTc Int : 440 ms NORMAL SINUS RHYTHM INCOMPLETE RBBB NONSPECIFIC ST ABNORMALITY ABNORMAL ECG Confirmed by YOVANI DICKINSON MD ([id number]) on 02/05/2020 11:34:55 AM Referred By: Confirmed By:YOVANI DICKINSON MD
--- NOTE | 2020-02-05 11:36 | CONSULT ---
Consult - text type - Consultation Consultation Note: Renal consult for JEANA This is a 79 year old gentleman with history of CAD s/p CABG, hypertension, hyperlipidemia, recently diagnosed live cancer who presents with shortness of breath and found to have Cr of 1.6. He denies any history of CKD. Denies any NSAID use. Reports shortness of breath for months. Denies cough or hemoptysis. No leg swelling or calf pain. No N/V/D. No fever or chills. No sick contacts. No skin rash. PMhx: as above Allergies: NKDA Family Hx: NC Social Hx: No T/A/D ROS: as per HPI, all other pertinent ros negative Home Medications Medication Instructions Recorded Aspirin [Aspirin EC] 81 mg PO HS 04/19/19 Clopidogrel Bisulfate [Plavix] 75 mg PO DAILY 04/19/19 Lisinopril 20 mg PO DAILY 04/19/19 Metoprolol Tartrate 50 500s PO DAILY 04/19/19 Tamsulosin HCl [Flomax] 0.4 mg PO HS 04/19/19 Rosuvastatin [Crestor -] 5 mg PO HS 10/05/19 Cholecalciferol (Vitamin D3) 50 mcg PO DAILY 10/21/19 [Vitamin D] Cholecalciferol (Vitamin D3) 50 mcg PO DAILY 01/06/20 [Vitamin D3] Isosorbide Mononitrate [Isosorbide 30 mg PO DAILY 01/06/20 Mononitrate ER] Omeprazole 40 mg PO DAILY 01/06/20 Vital Signs Temperature 98 F 02/05/20 08:46 Pulse Rate 78 02/05/20 08:46 Respiratory Rate 20 02/05/20 08:46 Blood Pressure 145/64 02/05/20 08:46 O2 Sat by Pulse Oximetry (%) 92 L 02/05/20 08:46 Intake & Output 02/02/20 02/03/20 02/04/20 02/05/20 23:59 23:59 23:59 23:59 Intake Total 1500 350 Output Total 250 250 Balance 1250 100 Weight 99.79 kg 98.43 kg NAD awake and alert neck supple, no JVD RRR, no M/R CTA, no rales or wheeze soft NT/ND, no ascities, rebound or guarding No LE edema or calf tenderness No CVA tenderness CBC, BMP 02/04/20 14:20 02/04/20 16:30 Laboratory Tests 02/04/20 02/04/20 14:20 16:30 Calcium 8.4 L Magnesium 1.8 Albumin 3.2 L Current Medications Aspirin (Ecotrin -) 81 mg PO HS [facility] Clopidogrel Bisulfate (Plavix -) 75 mg PO DAILY [facility] Last Admin: 02/05/20 10:13 Dose: 75 mg Documented by: Sodium Chloride (Normal Saline -) 1,000 mls @ 50 mls/hr IV ASDIR [facility] Stop: 02/05/20 22:22 Last Admin: 02/04/20 22:51 Dose: 50 mls/hr Documented by: Isosorbide Mononitrate (Imdur -) 30 mg PO DAILY [facility] Last Admin: 02/05/20 10:13 Dose: 30 mg Documented by: Metoprolol Tartrate (Lopressor -) 25 mg PO BID [facility] Last Admin: 02/05/20 10:13 Dose: 25 mg Documented by: Pantoprazole Sodium (Protonix -) 40 mg PO DAILY [facility] Last Admin: 02/05/20 10:13 Dose: 40 mg Documented by: Rosuvastatin Calcium (Crestor -) 5 mg PO HS [facility] Tamsulosin HCl (Flomax -) 0.4 mg PO HS [facility] 79 year old gentleman with history of CAD s/p CABG, hypertension, hyperlipidemia, recently diagnosed live cancer who presents with shortness of breath and found to have Cr of 1.6. 1. JEANA secondary to volume depletion vs. AIN vs. normotensive ATN 2. SOB w/o evidence of CHF r/o PE 3. HCC 4. Hypertension 5. CAD s/p CHF 6. Complex renal cyst Check urine studies for FeNa, UPCR and urine eosinophils Renal US showed no obstruction but did shows multiple cysts and one complex cyst Pt will need CTA to r/o PE given history of maligancy, elevated D-dimer, no radiographic evidence of HF, clinical evidence of primary lung disease ALIS risk as calcuated by Reynaldo calculator: 14% risk of contrast nephropathy and 0.12% of post contrast need for dialysis Risk was discussed with the patient and . They both expressed understanding and are willing to have contrast exposure with risk as described. will give arressgive IVF x 3 hours prior to contrast and then also continue fluids after contrast will need to compare prior imaging studies to access complex cyst seen on US. Hold ACEi for now Case discussed with Dr. Collette Gastelum. Thank you Frederic Valverde DO
--- NOTE | 2020-02-05 11:42 | HP ---
Admitting History and Physical - Primary Care Physician PCP: Marilin Gastelum - Admission Chief Complaint: SOB, vomiting History of Present Illness: 79-year-old male with past medical history of hypertension, hyperlipidemia, triple CABG 2016, CAD, diabetes, liver cancer (diagnosed 10/2019, no treatment yet seen at [place]), former everyday ETOH user (4-5 beers a day), former nicotine user (quit x25 years) presented to the emergency department for shortness of breath chronic for few months but worse since this morning. Patient reported he feels more short of breath while walking, but also feels short of breath while sitting resting. He reported that he attempted to eat a mozzarella stick at lunch, immediately felt nauseous and vomited one time, prompting him to come to the ED. He denied other episodes of vomiting, diarrhea, abdominal pain, fever. Patient denied chest pain, back pain, lightheadedness, lower extremity swelling, cough, sputum production. Patient reported he was diagnosed with liver cancer in October, but is in the process of starting treatment. Pt reported he last took ASA 81 mg PO last night. Pt had cath in Jan, no stent. Girl friend at bedside Pt said he saw ONC dr Cota few months ago, then went to [place]; he saw cardio dr Gallagher and pulm dr Mullins in the past; he said he saw GI dr over 10 years ago in [place] had colonoscopy there told OK no recent GI drs seen and not willing to see any GI drs at this pont. History Source: Patient, Significant Other, Medical Record Limitations to Obtaining History: No Limitations - Past Medical History Cardiovascular: Yes: Aortic Stenosis, CAD Gastrointestinal: Yes: Other (Liver CA) Endocrine: Yes: Diabetes Mellitus - Past Surgical History Past Surgical History: Yes: CABG - Smoking History Smoking history: Former smoker Have you smoked in the past 12 months: No Aproximately how many cigarettes per day: 0 If you are a former smoker, when did you quit?: 1994 - Alcohol/Substance Use Hx Alcohol Use: No History of Substance Use: reports: None - Social History Usual Living Arrangement: Yes: With Significant Other Do you think of yourself as: Straight/Heterosexual ADL: Independent History of Recent Travel: No Home Medications - Allergies Allergies/Adverse Reactions: Allergies Allergy/AdvReac Type Severity Reaction Status Date / Time bee venom protein (honey bee) Allergy Verified 01/06/20 10:47 lidocaine Allergy "gets very Verified 01/06/20 10:47 ill" - Home Medications Home Medications: Ambulatory Orders Aspirin [Aspirin EC] 81 mg PO HS 04/19/19 Clopidogrel Bisulfate [Plavix] 75 mg PO DAILY 04/19/19 Lisinopril 20 mg PO DAILY 04/19/19 Metoprolol Tartrate 50 500s PO DAILY 04/19/19 Tamsulosin HCl [Flomax] 0.4 mg PO HS 04/19/19 Rosuvastatin [Crestor -] 5 mg PO HS 10/05/19 Cholecalciferol (Vitamin D3) [Vitamin D] 50 mcg PO DAILY 10/21/19 Cholecalciferol (Vitamin D3) [Vitamin D3] 50 mcg PO DAILY 01/06/20 Isosorbide Mononitrate [Isosorbide Mononitrate ER] 30 mg PO DAILY 01/06/20 Omeprazole 40 mg PO DAILY 01/06/20 Family Medical History Family History: Unremarkable Review of Systems - Review of Systems Constitutional: denies: Chills, Fever Eyes: denies: Blind Spots, Blurred Vision HENT: denies: Difficult Swallowing, Ear Pain, Epistaxis Neck: denies: Decreased ROM, Pain on Movement, Stiffness, Tenderness Cardiovascular: reports: Shortness of Breath. denies: Chest Pain Respiratory: reports: SOB, SOB on Exertion. denies: Cough, Hemoptysis, Orthopnea, Wheezing Gastrointestinal: denies: Abdominal Pain, Constipation, Diarrhea, Rectal Bleeding, Vomiting Blood Genitourinary: denies: Discharge, Dysuria, Flank Pain Musculoskeletal: denies: Back Pain, Joint Pain Integumentary: denies: Blister, Bruising, Change in Color, Eczema, Rash, Wound Neurological: denies: Change in LOC, Change in Speech, Confusion, Dizziness, Headache, Seizure, Syncope, Unsteady Gait Endocrine: denies: Excessive Sweating, Flushing Hematology/Lymphatic: denies: Easily Bruised, Excessive Bleeding Psychiatric: denies: Altered Sleep Pattern, Anxiety, Depression, Suicidal Physical Examination Vital Signs: Vital Signs Temperature 98 F 02/05/20 08:46 Pulse Rate 78 02/05/20 08:46 Respiratory Rate 20 02/05/20 08:46 Blood Pressure 145/64 02/05/20 08:46 O2 Sat by Pulse Oximetry (%) 92 L 02/05/20 08:46 Constitutional: Yes: No Distress, Calm Eyes: Yes: Conjunctiva Clear HENT: Yes: Atraumatic Neck: Yes: Supple Cardiovascular: Yes: Regular Rate and Rhythm Respiratory: Yes: CTA Bilaterally Gastrointestinal: Yes: Soft, Hepatomegaly, Other (RUQ mass) Renal/: No: Schwartz Present, Hematuria, Polyuria Musculoskeletal: No: Joint Stiffness, Joint Swelling Extremities: No: Cold, Cool, Cyanosis Edema: No Neurological: Yes: WNL, Alert, Oriented. No: Confusion ...Motor Strength: WNL Psychiatric: Yes: WNL, Alert, Oriented. No: Agitated, Suicidal Ideation Labs: CBC, BMP 02/04/20 14:20 02/04/20 16:30 Imaging - Results Chest X-ray: Report Reviewed Other: Report Reviewed Assessment/Plan 79-year-old male with past medical history of hypertension, hyperlipidemia, triple CABG 2016, CAD, diabetes, liver cancer (diagnosed 10/2019, no treatment yet), former everyday ETOH user (4-5 beers a day), former nicotine user (quit x25 years) presented to the emergency department for shortness of breath crhonic but worse since this morning. 1 episode of vomiting but feels well now no CP NVCD abd pain DDimers high; leg US, chest CTA r/o PE - if kidney fct permits; renal eval - creat 1.6 ? dehydrated after vomiting? gentle IVF; f/w pt and girlfriend at bedside ARF risks and IVC they are aware; d/w renal will ghiven IVF anbd do IVC r/o PE - high risk for PE given malignancy cardio, pulm eval; pt is on no inhalers no O2 use has hira at [place] next week for liver treatment; suggetsed GI eval here but he refused abdomen CT if pt agrees DVT falls pfx d/w pt and girlfriend
[2020-02-05] MEDS ORDERED: SODIUM CHLORIDE 1,000 ML IV STA (11:55)
[2020-02-05] MEDS ORDERED: SODIUM CHLORIDE 1,000 ML IV SCH (11:56)
--- NOTE | 2020-02-05 11:56 | PN ---
Progress Note, Physician History of Present Illness: Mr Voss is a 79-year-old white male with past medical history of hypertension, hyperlipidemia, CABG 2017, CAD, diabetes, liver cancer (diagnosed 10/2019, no treatment yet), former everyday ETOH user (4-5 beers a day), former nicotine user (quit x25 years) presented to the emergency department for shortness of breath since this morning. Patient reported he feels more short of breath while walking, but also feels short of breath while sitting resting. He reported that he attempted to eat a mozzarella stick at lunch, immediately felt nauseous and vomited one time, prompting him to come to the ED. He denied other episodes of vomiting, diarrhea, abdominal pain, fever. Patient denied chest pain, back pain, lightheadedness, lower extremity swelling, cough, sputum production. Patient rep orted he was diagnosed with liver cancer in October, but is in the process of starting treatment. Pt reported he last took ASA 81 mg PO last night. Pt had cath in Jan, no stent. - Current Medication List Current Medications: Active Medications Aspirin (Ecotrin -) [address] [facility] Clopidogrel Bisulfate (Plavix -) 75 mg PO DAILY [facility] Last Admin: 02/05/20 10:13 Dose: 75 mg Documented by: Sodium Chloride (Normal Saline -) 1,000 mls @ 200 mls/hr IV ASDIR [facility] Stop: 02/05/20 22:22 Isosorbide Mononitrate (Imdur -) 30 mg PO DAILY [facility] Last Admin: 02/05/20 10:13 Dose: 30 mg Documented by: Metoprolol Tartrate (Lopressor -) 25 mg PO BID [facility] Last Admin: 02/05/20 10:13 Dose: 25 mg Documented by: Pantoprazole Sodium (Protonix -) 40 mg PO DAILY [facility] Last Admin: 02/05/20 10:13 Dose: 40 mg Documented by: Rosuvastatin Calcium (Crestor -) [address] [facility] Tamsulosin HCl (Flomax -) 0.[address] [facility] - Objective Vital Signs: Vital Signs Temperature 98 F 02/05/20 08:46 Pulse Rate 78 02/05/20 08:46 Respiratory Rate 20 02/05/20 08:46 Blood Pressure 145/64 02/05/20 08:46 O2 Sat by Pulse Oximetry (%) 92 L 02/05/20 08:46 Eyes: Yes: WNL, Conjunctiva Clear, EOM Intact HENT: Yes: WNL, Atraumatic, Normocephalic Neck: Yes: WNL, Supple, Trachea Midline Cardiovascular: Yes: WNL, Regular Rate and Rhythm Respiratory: Yes: WNL, Regular, CTA Bilaterally Gastrointestinal: Yes: WNL, Normal Bowel Sounds Genitourinary: Yes: WNL Musculoskeletal: Yes: WNL Extremities: Yes: WNL Edema: No Integumentary: Yes: WNL Neurological: Yes: WNL, Alert, Oriented ...Motor Strength: WNL Psychiatric: Yes: WNL Labs: CBC, BMP 02/04/20 14:20 02/04/20 16:30 INR, PTT INR 1.13 (0.83-1.09) H 02/04/20 14:20 Assessment/Plan 79 year old gentleman with history of CAD s/p CABG, hypertension, hyperlipidemia, recently diagnosed live cancer who presents with shortness of breath and found to have Cr of 1.6. JEANA secondary to volume depletion vs. AIN vs. normotensive ATN Recent c. cath mod severe CAD - medical rx recommended in the view of advanced liver CA. Cont DAPT unless side effects e.g. bleeding/bruising etc. Cardiac [place] stable cont rx as per renal Awaiting RT w/u at [place] next week DVT PLX
--- NOTE | 2020-02-05 14:47 | CON.PULM ---
Consult Consult Specialty:: PULMONARY Referred by:: JULIANN Reason for Consultation:: SOB/RULE OUT PE - History of Present Illness Chief Complaint: CHRONIC DYSPNEA ON EXERTION History of Present Illness: 79-year-old male with past medical history of hypertension, hyperlipidemia, copd, triple vessel CABG 2016, CAD, diabetes, liver cancer (diagnosed 10/2019, no treatment yet), former everyday ETOH user (4-5 beers a day), former nicotine user (quit x25 years) presented to the emergency department for shortness of breath since this morning. Patient reported he feels more short of breath while walking, but also feels short of breath while sitting resting. 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 No: O2 Dependent, Pneumonia Gastrointestinal: Yes: Cancer, Other (Liver CA) Renal/: Yes: Renal Inusuff Heme/Onc: Yes: Anemia Infectious Disease: No: AIDS Endocrine: Yes: Diabetes Mellitus - Past Surgical History Past Surgical History: Yes: CABG - Alcohol/Substance Use Hx Alcohol Use: No - Smoking History Smoking history: Never smoked Have you smoked in the past 12 months: No Aproximately how many cigarettes per day: 0 If you are a former smoker, when did you quit?: 1994 - Social History Usual Living Arrangement: With Spouse Place of : [facility] History of Recent Travel: No Home Medications - Allergies Allergies/Adverse Reactions: Allergies Allergy/AdvReac Type Severity Reaction Status Date / Time bee venom protein (honey bee) Allergy Verified 01/06/20 10:47 lidocaine Allergy "gets very Verified 01/06/20 10:47 ill" - Home Medications Home Medications: Ambulatory Orders Aspirin [Aspirin EC] 81 mg PO HS 04/19/19 Clopidogrel Bisulfate [Plavix] 75 mg PO DAILY 04/19/19 Lisinopril 20 mg PO DAILY 04/19/19 Metoprolol Tartrate 50 500s PO DAILY 04/19/19 Tamsulosin HCl [Flomax] 0.4 mg PO HS 04/19/19 Rosuvastatin [Crestor -] 5 mg PO HS 10/05/19 Cholecalciferol (Vitamin D3) [Vitamin D] 50 mcg PO DAILY 10/21/19 Cholecalciferol (Vitamin D3) [Vitamin D3] 50 mcg PO DAILY 01/06/20 Isosorbide Mononitrate [Isosorbide Mononitrate ER] 30 mg PO DAILY 01/06/20 Omeprazole 40 mg PO DAILY 01/06/20 Family Medical History Family History: Unremarkable Review of Systems - Review of Systems Constitutional: denies: Fever Eyes: denies: Blurred Vision HENT: denies: Difficult Swallowing Neck: denies: Decreased ROM Cardiovascular: denies: Chest Pain Respiratory: reports: Exercise Intolerance, SOB, SOB on Exertion. denies: Cough, Hemoptysis, Wheezing Gastrointestinal: reports: Abdominal Pain Genitourinary: denies: Burning Physical Exam Vital Sings: Vital Signs Temperature 97.5 F L 02/05/20 14:22 Pulse Rate 68 02/05/20 14:22 Respiratory Rate 18 02/05/20 14:22 Blood Pressure 138/58 L 02/05/20 14:22 O2 Sat by Pulse Oximetry (%) 92 L 02/05/20 08:46 Constitutional: Yes: Calm Eyes: Yes: EOM Intact HENT: Yes: Normocephalic Neck: Yes: Trachea Midline Cardiovascular: Yes: Regular Rate and Rhythm Respiratory: Yes: CTA Bilaterally Gastrointestinal: Yes: Palpable Mass Extremities: Yes: WNL. No: Calf Tenderness Labs: CBC, BMP 02/04/20 14:20 02/04/20 16:30 Imaging - Results Chest X-ray: Report Reviewed, Image Reviewed Ultrasound: Report Reviewed Problem List - Problems (1) COPD (chronic obstructive pulmonary disease) Code(s): J44.9 - CHRONIC OBSTRUCTIVE PULMONARY DISEASE, UNSPECIFIED (2) JEANA (acute kidney injury) Code(s): N17.9 - ACUTE KIDNEY FAILURE, UNSPECIFIED (3) CAD (coronary artery disease) Code(s): I25.10 - ATHSCL HEART DISEASE OF [place] CORONARY ARTERY W/O ANG PCTRS (4) Hx of CABG Code(s): Z95.1 - PRESENCE OF AORTOCORONARY BYPASS GRAFT (5) Liver cancer Code(s): C22.9 - MALIG NEOPLASM OF LIVER, NOT SPECIFIED PRIMARY OR SEC Assessment/Plan ELEVATED D-DIMER MAY BE ON BASIS OF UNDERLYING NEOPLASM AND/OR RENAL INSUFFICIEN CY RENAL PATIENT HAS CHRONIC DYSPNEA ON EXERTION WHICH HE STATES HAS NOT WORSENED/DENIES PLEURITIC CHESTPAIN/ VASCULAR DUPLEX NEGATIVE LOWER EXTREMITIES BASED ON [facility] CRITERIA THERE IS A LOW/MODERATE RISK FOR PE CTA ORDERED BY RENAL WILL AWAIT RESULTS Dayana REEDER MD
[2020-02-05] MEDS: HEPARIN NA (PORCINE) 5,000 UNITS/ML 1ML VIAL SQ SCH (21:03)
[2020-02-05] MEDS: ASPIRIN COATED 81 MG TABLET.EC PO SCH (21:03)
[2020-02-05] MEDS: ROSUVASTATIN CA 5 MG TABLET (FP) PO SCH (21:03)
[2020-02-05] MEDS: TAMSULOSIN HCL 0.4 MG CAP PO SCH (21:03)
[2020-02-06 06:58] LABS: BLOOD UREA NITROGEN 17.7 mg/dL (7-18); CALCIUM 8.2 mg/dL (8.5-10.1); MAGNESIUM 1.5 mg/dL (1.8-2.4); POTASSIUM 4.2 mmol/L (3.5-5.1)
[2020-02-06] MEDS: ISOSORBIDE MONONITRATE 30 MG TAB.SR.24H (FP) PO SCH (09:44)
[2020-02-06] MEDS: CLOPIDOGREL BISULFATE 75 MG TABLET (FP) PO SCH (09:44)
[2020-02-06] MEDS: METOPROLOL TARTRATE 25 MG TABLET (FP) PO SCH ×2 (09:44→21:00)
[2020-02-06] MEDS: PANTOPRAZOLE 40 MG TABLET PO SCH (09:44)
[2020-02-06] MEDS: HEPARIN NA (PORCINE) 5,000 UNITS/ML 1ML VIAL SQ SCH ×3 (09:44→21:00)
--- NOTE | 2020-02-06 10:39 | PN ---
Progress Note, Physician Chief Complaint: in bed NAD O2 sat> 90% RA no CP less SOB no NVCD no abd pain ate OK; had BM x1 ; wants to go home seen by cardio and pulm; pt still does not want GI eval here - I advised to see GI at [place] said he did not have any abdomen or imaging CT done since OCT - agreed for abd CT now (no ivc, with po c) girlfriend at baseline - said he might benefit from low dose of anxiety meds; he took them before; d/w pt possible SE xanax fall tolerance dependence; will order 1 dose prn if needed before CT scan - fall PFX d/w them - Current Medication List Current Medications: Active Medications Aspirin (Ecotrin -) 81 mg PO [facility] Last Admin: 02/05/20 21:03 Dose: 81 mg Documented by: Clopidogrel Bisulfate (Plavix -) 75 mg PO DAILY [facility] Last Admin: 02/06/20 09:44 Dose: 75 mg Documented by: Heparin Sodium (Porcine) (Heparin -) 5,000 unit SQ BID [facility] Last Admin: 02/06/20 09:46 Dose: Not Given Documented by: Isosorbide Mononitrate (Imdur -) 30 mg PO DAILY [facility] Last Admin: 02/06/20 09:44 Dose: 30 mg Documented by: Metoprolol Tartrate (Lopressor -) 25 mg PO BID [facility] Last Admin: 02/06/20 09:44 Dose: 25 mg Documented by: Pantoprazole Sodium (Protonix -) 40 mg PO DAILY [facility] Last Admin: 02/06/20 09:44 Dose: 40 mg Documented by: Rosuvastatin Calcium (Crestor -) 5 mg PO [facility] Last Admin: 02/05/20 21:03 Dose: 5 mg Documented by: Tamsulosin HCl (Flomax -) 0.4 mg PO [facility] Last Admin: 02/05/20 21:03 Dose: 0.4 mg Documented by: - Objective Vital Signs: Vital Signs Temperature 98.5 F 02/06/20 08:57 Pulse Rate 92 H 02/06/20 08:57 Respiratory Rate 18 02/06/20 08:57 Blood Pressure 140/66 02/06/20 08:57 O2 Sat by Pulse Oximetry (%) 96 02/05/20 21:00 Constitutional: Yes: No Distress, Calm Eyes: Yes: Conjunctiva Clear HENT: Yes: Atraumatic Neck: Yes: Supple Cardiovascular: Yes: Regular Rate and Rhythm Respiratory: Yes: CTA Bilaterally Gastrointestinal: Yes: Soft, Palpable Mass. No: Tenderness Genitourinary: No: Hematuria Musculoskeletal: No: Joint Stiffness, Joint Swelling Extremities: No: Cold, Cool, Cyanosis Edema: No Integumentary: No: Rash, Venous Stasis Changes Neurological: Yes: WNL, Alert, Oriented ...Motor Strength: WNL Psychiatric: Yes: WNL, Alert, Oriented. No: Agitated, Suicidal Ideation Labs: CBC, BMP 02/04/20 14:20 02/06/20 06:15 INR, PTT INR 1.13 (0.83-1.09) H 02/04/20 14:20 - ....Imaging Other: Report Reviewed Assessment/Plan 79-year-old male with past medical history of hypertension, hyperlipidemia, triple CABG 2016, CAD, diabetes, liver cancer (diagnosed 10/2019, no treatment yet), former everyday ETOH user (4-5 beers a day), former nicotine user (quit x25 years) presented to the emergency department for shortness of breath crhonic but worse since this morning. 1 episode of vomiting yesterday but feels well now no CP NVCD abd pain ate OK had BM; large abdominal palpable tumor RUQ DDimers high; chest CTA no PE cardio, pulm eval; pt is on no inhalers no O2 use has hira at [place] next week for liver treatment; suggested again GI eval here but he refused abdomen CT if pt agrees will need close f/u and soon treatment for liver CA time sensitive situation xanax prn x 1 if needed DVT falls pfx d/w pt and girlfriend
[2020-02-06] MEDS ORDERED: ALPRAZolam 0.25 MG TABLET PO PRN (11:31)
--- NOTE | 2020-02-06 13:02 | PN ---
Progress Note (short form) - Note Progress Note: PULMONARY WANTS TO GO HOME VSS/AFEBRILE ANICTERIC CHEST DISTANT BUT CLEAR S1S2 PALPABLE ENLARGING RIGHT UPPER QUADRANT MASS NO EDEMA CTA NEGATIVE FOR PE LABS/MEDS/NOTES REVIEWED STABLE FROM A PULMONARY STANDPOINT TO CONTINUE TREATMENT AN OUTPATIENT. Dayana REEDER MD Problem List - Problems (1) COPD (chronic obstructive pulmonary disease) Code(s): J44.9 - CHRONIC OBSTRUCTIVE PULMONARY DISEASE, UNSPECIFIED (2) JEANA (acute kidney injury) Code(s): N17.9 - ACUTE KIDNEY FAILURE, UNSPECIFIED (3) CAD (coronary artery disease) Code(s): I25.10 - ATHSCL HEART DISEASE OF [place] CORONARY ARTERY W/O ANG PCTRS (4) Hx of CABG Code(s): Z95.1 - PRESENCE OF AORTOCORONARY BYPASS GRAFT (5) Liver cancer Code(s): C22.9 - MALIG NEOPLASM OF LIVER, NOT SPECIFIED PRIMARY OR SEC
--- NOTE | 2020-02-06 13:14 | PN ---
Progress Note, Physician History of Present Illness: Pt seen and examined at bedside. He is awake and alert. He denies shortness of breath. - Current Medication List Current Medications: Active Medications Alprazolam (Xanax -) 0.25 mg PO DAILY PRN PRN Reason: ANXIETY Aspirin (Ecotrin -) 81 mg PO [facility] Last Admin: 02/05/20 21:03 Dose: 81 mg Documented by: Clopidogrel Bisulfate (Plavix -) [address] [facility] Last Admin: 02/06/20 09:44 Dose: 75 mg Documented by: Heparin Sodium (Porcine) (Heparin -) 5,[address] [facility] Last Admin: 02/06/20 09:46 Dose: Not Given Documented by: Isosorbide Mononitrate (Imdur -) [address] [facility] Last Admin: 02/06/20 09:44 Dose: 30 mg Documented by: Metoprolol Tartrate (Lopressor -) [address] [facility] Last Admin: 02/06/20 09:44 Dose: 25 mg Documented by: Pantoprazole Sodium (Protonix -) [address] [facility] Last Admin: 02/06/20 09:44 Dose: 40 mg Documented by: Rosuvastatin Calcium (Crestor -) 5 mg PO [facility] Last Admin: 02/05/20 21:03 Dose: 5 mg Documented by: Tamsulosin HCl (Flomax -) 0.4 mg PO [facility] Last Admin: 02/05/20 21:03 Dose: 0.4 mg Documented by: - Objective Vital Signs: Vital Signs Temperature 98.5 F 02/06/20 08:57 Pulse Rate 92 H 02/06/20 08:57 Respiratory Rate 18 02/06/20 08:57 Blood Pressure 140/66 02/06/20 08:57 O2 Sat by Pulse Oximetry (%) 97 02/06/20 09:00 Constitutional: Yes: Calm Eyes: Yes: Conjunctiva Clear HENT: Yes: Atraumatic Neck: Yes: Supple Cardiovascular: Yes: S1, S2 Respiratory: Yes: CTA Bilaterally Gastrointestinal: Yes: Soft, Abdomen, Obese Musculoskeletal: Yes: WNL Edema: No Neurological: Yes: Oriented Psychiatric: Yes: Oriented Labs: CBC, BMP 02/04/20 14:20 02/06/20 06:15 INR, PTT INR 1.13 (0.83-1.09) H 02/04/20 14:20 Assessment/Plan Current Medications Generic Name Dose Route Start Last Admin Trade Name Ramón PRN Reason Stop Dose Admin Alprazolam 0.25 mg 02/06/20 11:31 Xanax - PO DAILY PRN ANXIETY Aspirin 81 mg 02/05/20 22:00 02/05/20 21:03 Ecotrin - PO 81 mg HS RITA Administration Clopidogrel Bisulfate 75 mg 02/05/20 10:00 02/06/20 09:44 Plavix - PO 75 mg DAILY RITA Administration Heparin Sodium (Porcine) 5,000 unit 02/05/20 22:00 02/06/20 09:46 Heparin - SQ Not Given BID RITA Isosorbide Mononitrate 30 mg 02/05/20 10:00 02/06/20 09:44 Imdur - PO 30 mg DAILY RITA Administration Metoprolol Tartrate 25 mg 02/04/20 22:15 02/06/20 09:44 Lopressor - PO 25 mg BID RITA Administration Pantoprazole Sodium 40 mg 02/05/20 10:00 02/06/20 09:44 Protonix - PO 40 mg DAILY RITA Administration Rosuvastatin Calcium 5 mg 02/05/20 22:00 02/05/20 21:03 Crestor - PO 5 mg HS RITA Administration Tamsulosin HCl 0.4 mg 02/05/20 22:00 02/05/20 21:03 Flomax - PO 0.4 mg HS RITA Administration 1. JEANA 2. SOB 3. HCC 4. Hypertension 5. CAD s/p CHF 6. Complex renal cyst Plan - renal function improved - he had a cta, neg for PE - cont to monitor renal function - discussed with medical team - repeat labs in am
[2020-02-06] MEDS: TAMSULOSIN HCL 0.4 MG CAP PO SCH (21:00)
[2020-02-06] MEDS: ROSUVASTATIN CA 5 MG TABLET (FP) PO SCH (21:00)
[2020-02-06] MEDS: ASPIRIN COATED 81 MG TABLET.EC PO SCH (21:00)
[2020-02-07 06:49] LABS: BASO % 0.6 % (0-2.0); EOS % 5.8 % (0-4.5); HEMATOCRIT 34.4 % (35.4-49); HEMOGLOBIN 12.2 GM/dL (11.7-16.9); LYMPH % 15.9 % (8-40); MCH 31.9 pg (25.7-33.7); MCHC 35.5 g/dl (32.0-35.9); MEAN CELL VOLUME 89.9 fl (80-96); MEAN PLT VOLUME 7.5 fl (7.5-11.1); MONO % 10.7 % (3.8-10.2); PLATELET COUNT 231 K/MM3 (134-434); RBC 3.83 M/mm3 (4.00-5.60); RDW 13.6 % (11.9-15.9); WHITE BLOOD COUNT 6.1 K/mm3 (4.0-10.0)
[2020-02-07 06:56] LABS: BILIRUBIN,TOTAL 1.1 mg/dL (0.2-1); BLOOD UREA NITROGEN 15.8 mg/dL (7-18); CALCIUM 8.7 mg/dL (8.5-10.1); POTASSIUM 4.3 mmol/L (3.5-5.1); TOT PROT 6.1 g/dl (6.4-8.2)
--- NOTE | 2020-02-07 07:43 | DS ---
Physical Examination Vital Signs: Vital Signs Temperature 98 F 02/07/20 06:15 Pulse Rate 67 02/07/20 06:15 Respiratory Rate 20 02/07/20 06:15 Blood Pressure 132/85 02/07/20 06:15 O2 Sat by Pulse Oximetry (%) 97 02/06/20 21:00 Findings/Remarks: in bed NAD VSS afebrile feels well no CP SOB cough HARTMAN NVCD abd pain abdomen CT d/w pt copies given to f/u with [facility] for liver mass (growing, time sensitive matter d/w pt and his girlfriend) Constitutional: Yes: No Distress, Calm Eyes: Yes: Conjunctiva Clear HENT: Yes: Atraumatic Neck: Yes: Supple Cardiovascular: Yes: Regular Rate and Rhythm Respiratory: Yes: CTA Bilaterally Gastrointestinal: Yes: Soft. No: Tenderness Renal/: No: Hematuria Musculoskeletal: No: Joint Stiffness, Joint Swelling Extremities: No: Cold, Cool Edema: No Integumentary: No: Rash, Venous Stasis Changes Neurological: Yes: WNL, Alert, Oriented ...Motor Strength: WNL Psychiatric: Yes: WNL, Alert, Oriented. No: Agitated, Suicidal Ideation Labs: CBC, BMP 02/07/20 05:57 Discharge Summary Problems reviewed: Yes Reason For Visit: ACUTE KIDNEY INJURY Current Active Problems JEANA (acute kidney injury) (Acute) COPD (chronic obstructive pulmonary disease) (Acute) Shortness of breath (Acute) Procedures: Principal: 79 YOM admitted with SOB and 1 eposode of vomiting; h/o ASHD COPD Liver CA; seen by cardiology recently and at [facility] for the management of liver CA. Other Procedures: seen by pulmoanry and renal; IVF; CT done no PE; liver mass c/w liver CA - mass bigger; seen at [facility] awaiting radiation tx Hospital Course: inhalers prn; improved with above; bland diet advised; GI eval outpt advised and ONC f/u wojciech at [facility] for liver CA Treatment time sensitive condition d.w pt and also advised cardiology and pulmonary and PCP f/u outpt in 1-2 weeks; RTER if w orse or recurrent c/o Condition: Stable - Instructions Diet, Activity, Other Instructions: f/u PCP cardiology and pulmonary in 1-2 weeks from DC f/u ONC at [facility], GI eval outpt; liver CA treatment per [facility]; time sensitive; RTER if worse or recurrent c/o d/w pt Referrals: Taiwo Gastelum MD [Primary Care Provider] - Nicola Dong MD [Staff Physician] - Bg Moser MD [Staff Physician] - Disposition: HOME - Home Medications Comprehensive Discharge Medication List: Ambulatory Orders Aspirin [Aspirin EC] 81 mg PO HS 04/19/19 Clopidogrel Bisulfate [Plavix] 75 mg PO DAILY 04/19/19 Metoprolol Tartrate 50 500s PO DAILY 04/19/19 Tamsulosin HCl [Flomax] 0.4 mg PO HS 04/19/19 Rosuvastatin [Crestor -] 5 mg PO HS 10/05/19 Cholecalciferol (Vitamin D3) [Vitamin D3] 50 mcg PO DAILY 10/21/19 Isosorbide Mononitrate [Isosorbide Mononitrate ER] 30 mg PO DAILY 01/06/20 Omeprazole 40 mg PO DAILY 01/06/20
[2020-02-07] MEDS: ISOSORBIDE MONONITRATE 30 MG TAB.SR.24H (FP) PO SCH (09:28)
[2020-02-07] MEDS: PANTOPRAZOLE 40 MG TABLET PO SCH (09:28)
[2020-02-07] MEDS: METOPROLOL TARTRATE 25 MG TABLET (FP) PO SCH (09:28)
[2020-02-07] MEDS: CLOPIDOGREL BISULFATE 75 MG TABLET (FP) PO SCH (09:28)
[2020-02-07] MEDS: HEPARIN NA (PORCINE) 5,000 UNITS/ML 1ML VIAL SQ SCH (09:29)
[2020-02-07 09:33] VITALS: BP 136/54; PULSE 95; TEMP 98
== END 2020-02-07 13:19 | disposition home or self-care (01) | DRG 683 ==
LOC: JER 14:04 → JERBED 22:24 → J7W 02-05 01:52
PROVIDERS: ADMIT Specialist; ATTEND Specialist
DX: N17.9 Acute kidney failure, unspecified (principal); C22.8 Malignant neoplasm of liver, primary, unspecified as to type; J84.9 Interstitial pulmonary disease, unspecified; I25.10 Atherosclerotic heart disease of native coronary artery without angina pectoris; I10 Essential (primary) hypertension; J44.9 Chronic obstructive pulmonary disease, unspecified; E78.5 Hyperlipidemia, unspecified; E11.9 Type 2 diabetes mellitus without complications; I35.0 Nonrheumatic aortic (valve) stenosis; N28.1 Cyst of kidney, acquired; Z95.1 Presence of aortocoronary bypass graft; Z95.5 Presence of coronary angioplasty implant and graft
CPT/HCPCS: 36415; 71045-TC-FY; 71275-TC; 74176-TC; 76775-TC; 76856-TC; 80048; 80053; 82803; 83605; 83690; 83735; 83880; 84100; 84484; 85025; 85379; 85610; 85730; 86850; 86900; 86901; 87040; 87205; 93005; 93010; 93970-TC; 99285-25; J1644; J7030; Q9967

== ENCOUNTER 2020-02-17 10:18 | Inpatient (IN) | payer OTHER ==
[2020-02-17] MEDS ORDERED: ONDANSETRON 4 MG/2 ML VIAL ONE (10:30)
--- NOTE | 2020-02-17 11:50 | CON.CARD ---
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 As per patient, he was being evaluated by his wood heel back liner and while getting an EKG he began to feel ill, vomited x1, and syncopized. While in the ED, patient experienced one episode of NBNB emesis. He notes his pain to worsen with sitting upright and feel better while lying flat. He denies any recent cough, shortness of breath, fevers, or dizziness. PMH Triple Bypass Bioprostatic Aortic Valve [facility] [place] 2016 Nuclear MIBI stress March 2017 negative Cardiac Cath @ [facility] by 10/01/19 Calcified arteries Left Main 30% LAD proximal 60%, mid 95%, distal 100% D2 90% medium size long vessel LCx proximal 100% OM1 100% OM2 100% Ramus 90% medium size long vessel RCA proximal 70%, mid 90%, distal 50%, RPDA 90% SVG to OM2 patent with mild distal disease [place] arteries [place]RA to LAD patent with mild to moderate distal disease [place] vessel 2019 - Large Liver hepatoma treated at - no evidence of metastasis- awaiting IR evaluation for possible embolization chemotherapy. C.Cath @ [facility] by Dr. Philip 01/08/20 Normal right heart pressures The patient was bradycardiac at the beginning of the procedure Patent IM graft to the LAD Patent SVG to the OM2 Mid LM lesion is 30% stenosed. Prox LAD lesion is 60% stenosed. Dist LAD lesion is 100% stenosed. Mid Cx lesion is 100% stenosed. 2nd Diag lesion is 90% stenosed. 1st Mrg lesion is 100% stenosed. 2nd Mrg lesion is 100% stenosed. Ost RCA lesion is 80% stenosed. Prox RCA lesion is 80% stenosed. Mid RCA lesion is 90% stenosed. Dist RCA lesion is 70% stenosed. RPDA lesion is 90% stenosed. Mid LAD lesion is 95% stenosed. The attending physician reevaluated the patient prior to ordering sedation. The patient level of consciousness and physiological status were monitoring throughout the procedure by a sedation trained nurse. s/p coronary angiography with grafts and RHC inpatient Dx Unstable angina/history of positive stress test/CAD/Syncope Calcified arteries Left Main 30% LAD proximal 60%, mid 95%, distal 100% D2 90% medium size long vessel LCx proximal 100% OM1 100% OM2 100% Ramus 90% medium size long vessel RCA ostial 80%, proximal 80%, mid 90%, distal 70%, RPDA 90% SVG to OM2 patent with mild distal disease [place] arteries [place] to LAD patent with mild to moderate distal disease [place] vessel Before procedure, patient became bradycardiac and hypotensive and was treated with Atropine. - History Source History Provided By: Patient, Medical Record - Past Medical History Cardio/Vascular: Yes: Aortic Stenosis, CAD Pulmonary: Yes: COPD. No: O2 Dependent, Pneumonia Gastrointestinal: Yes: Other (Liver CA) Hepatobiliary: Yes: Other (hepatoma) Renal/: Yes: Renal Inusuff Endocrine: Yes: Diabetes Mellitus - Past Surgical History Past Surgical History: Yes: CABG - Alcohol/Substance Use Hx Alcohol Use: No History of Substance Use: reports: None - Smoking History Smoking history: Former smoker Have you smoked in the past 12 months: No Aproximately how many cigarettes per day: 0 If you are a former smoker, when did you quit?: 1994 - Social History Usual Living Arrangement: With Spouse ADL: Independent History of Recent Travel: No Home Medications - Allergies Allergies/Adverse Reactions: Allergies Allergy/AdvReac Type Severity Reaction Status Date / Time bee venom protein (honey bee) Allergy Verified 02/17/20 10:28 lidocaine Allergy "gets very Verified 02/17/20 10:28 ill" - Home Medications Home Medications: Ambulatory Orders Aspirin [Aspirin EC] 81 mg PO HS 04/19/19 Clopidogrel Bisulfate [Plavix] 75 mg PO DAILY 04/19/19 Metoprolol Tartrate 50 500s PO DAILY 04/19/19 Tamsulosin HCl [Flomax] 0.4 mg PO HS 04/19/19 Rosuvastatin [Crestor -] 5 mg PO HS 10/05/19 Cholecalciferol (Vitamin D3) [Vitamin D3] 50 mcg PO DAILY 10/21/19 Isosorbide Mononitrate [Isosorbide Mononitrate ER] 30 mg PO DAILY 01/06/20 Omeprazole 40 mg PO DAILY 01/06/20 Albuterol Sulfate [Albuterol Sulfate Hfa] 8.5 gm IH TID PRN #1 [email or web address] 02/07/20 Review of Systems - Review of Systems Constitutional: reports: No Symptoms Eyes: reports: No Symptoms HENT: reports: No Symptoms Neck: reports: No Symptoms Cardiovascular: reports: No Symptoms Respiratory: reports: No Symptoms Gastrointestinal: reports: No Symptoms Genitourinary: reports: No Symptoms Breasts: reports: No Symptoms Reported Musculoskeletal: reports: No Symptoms Integumentary: reports: No Symptoms Neurological: reports: Syncope Endocrine: reports: No Symptoms Hematology/Lymphatic: reports: No Symptoms Psychiatric: reports: No Symptoms Vital Signs: Vital Signs Temperature 97.4 F L 02/17/20 10:24 Pulse Rate 62 02/17/20 10:48 Respiratory Rate 16 02/17/20 10:48 Blood Pressure 144/68 02/17/20 10:48 O2 Sat by Pulse Oximetry (%) 96 02/17/20 10:48 Constitutional: Yes: Well Nourished, No Distress, Calm Eyes: Yes: WNL, Conjunctiva Clear, EOM Intact HENT: Yes: WNL, Atraumatic, Normocephalic Neck: Yes: WNL, Supple, Trachea Midline Respiratory: Yes: WNL, Regular, CTA Bilaterally Gastrointestinal: Yes: Other (liver mass) Renal/: Yes: WNL Cardiovascular: Yes: WNL, Regular Rate and Rhythm Musculoskeletal: Yes: WNL Extremities: Yes: WNL Integumentary: Yes: WNL Neurological: Yes: WNL, Alert, Oriented ...Motor Strength: WNL Psychiatric: Yes: WNL, Alert, Oriented Imaging - Results Chest X-ray: Image Reviewed (no i/e) EKG: Image Reviewed (s nick) Problem List - Problems (1) Syncope Code(s): R55 - SYNCOPE AND COLLAPSE Qualifiers: Syncope type: unspecified Qualified Code(s): R55 - Syncope and collapse (2) JEANA (acute kidney injury) Code(s): N17.9 - ACUTE KIDNEY FAILURE, UNSPECIFIED (3) Abdominal pain Code(s): R10.9 - UNSPECIFIED ABDOMINAL PAIN Qualifiers: Abdominal location: right upper quadrant Qualified Code(s): R10.11 - Right upper quadrant pain (4) CAD (coronary artery disease) Code(s): I25.10 - ATHSCL HEART DISEASE OF [place] CORONARY ARTERY W/O ANG PCTRS (5) COPD (chronic obstructive pulmonary disease) Code(s): J44.9 - CHRONIC OBSTRUCTIVE PULMONARY DISEASE, UNSPECIFIED (6) Hx of CABG Code(s): Z95.1 - PRESENCE OF AORTOCORONARY BYPASS GRAFT (7) Liver cancer Code(s): C22.9 - MALIG NEOPLASM OF LIVER, NOT SPECIFIED PRIMARY OR SEC (8) Near syncope Code(s): R55 - SYNCOPE AND COLLAPSE (9) Obesity Code(s): E66.9 - OBESITY, UNSPECIFIED (10) Shortness of breath Code(s): R06.02 - SHORTNESS OF BREATH Assessment/Plan S/p AVR continue Aspirin and infectious prophylactic endocarditis. Patient is currently awaiting RT therapy SLK. While undergoing EKG, patient syncopized and at the time, no palpable pulse was appreciated by me. No breathing activity was present. While attempting to transfer patient to the floor to perform CPR, his pulse and breathing spontaneously reoccurred. Patient regained consciousness. He was transferred via EMS to [facility] for further evaluation. Dr. Jay Lake of electrophysiology was consulted. Recorded EKG prior to syncope showed sinus bradycardia of 50 bpm. Repeated EKG in the ER QTC 500 , hypomagnesemia noted. Plan; Admit to telemetry supplement Mg EP eval cont medical rx
[2020-02-17 11:55] LABS: BASO % 0.5 % (0-2.0); EOS % 2.6 % (0-4.5); HEMOGLOBIN 11.8 GM/dL (11.7-16.9); LYMPH % 13.5 % (8-40); MCH 30.9 pg (25.7-33.7); MCHC 33.7 g/dl (32.0-35.9); MEAN CELL VOLUME 91.6 fl (80-96); MEAN PLT VOLUME 7.6 fl (7.5-11.1); NEUT % 72.4 % (42.8-82.8); PLATELET COUNT 207 K/MM3 (134-434); RBC 3.82 M/mm3 (4.00-5.60); WHITE BLOOD COUNT 5.4 K/mm3 (4.0-10.0)
[2020-02-17 12:12] LABS: ALBUMIN 2.8 g/dl (3.4-5.0); ALK PHOS 209 U/L (45-117); ANION GAP 6 MMOL/L (8-16); BILIRUBIN,TOTAL 0.8 mg/dL (0.2-1); BLOOD UREA NITROGEN 17.1 mg/dL (7-18); CALCIUM 7.8 mg/dL (8.5-10.1); CHLORIDE 103 mmol/L (98-107); CO2 26 mmol/L (21-32); GLUCOSE,RANDOM 223 mg/dL (74-106); LIPASE 215 U/L (73-393); MAGNESIUM 1.6 mg/dL (1.8-2.4); POTASSIUM 4.3 mmol/L (3.5-5.1); SGOT/AST 183 U/L (15-37); SGPT/ALT 51 U/L (13-61); SODIUM 135 mmol/L (136-145); TOT PROT 5.9 g/dl (6.4-8.2)
--- NOTE | 2020-02-17 12:19 | CONSULT ---
- Consultation REQUESTING PROVIDER: Dr. Lake/Family Day Carer - seen by ROBERTO Curiel CONSULT REQUEST: We have been asked to surgically evaluate this patient for bradycardia w/ syncope [employer] Ramp Attendant: Dr. Moser PCP: Dr. Gastelum HPI: Asked by Dr. Lake (Cardio Family Day Carer) to see patient sent in from Dr. Moser office s/p witnessed syncopal episode after having an EKG. Patient c/o epigastric discomfort w/ associated nausea prior to syncope. After the EKG, patient vomited x1 then syncopized. Per Dr. Moser note, patient was pulseless and apenic. EKG prior to syncope showed sinus nick 50 bpm. Atropine administered. Spontaneous return of circulation and respirations. Transferred to [facility] ED via EMS for further evaluation by ambulance. Currently, patient is alert and resting in position of comfort. States that the pain is worse when sitting up and alleviated when supine. Informs me that he was last seen in our ED on 02/03/2020 for n/v and SOB. Denies and recent illness or contact with anybody sick. Denies recent travel. Denies cough, SOB, HARTMAN or hemoptysis. Denies palpitations or irregular heart beat. Denies fever or chills. Denies constipation, melena or hematochezia. Denies pain radiating towards the back. EKG performed at: 17 February 2020 10:30:26 in the ED Vent Rate 87 bpm AK interval 208 ms QRS duration 104 ms QT/QTc 416/500 ms P-R-T axes 73 -6 71 NSR RSR or QR pattern in V1 suggests right ventricular conduction delay Prolonged QT Abnormal ECG PMHx: Aortic Stenosis COPD Renal Insuff HTN HLD CAD DM2 Liver Cancer (10/2019) treated at [facility] - no evidence of metastasis - pending radiation 02/28 PSHx: Triple Bypass Bioprostatic Aortic Valve Replacement 2016 Nuclear MIBI stress March 2017 negative Cardiac Cath @ [facility] by 10/01/19 Social Hx: Former smoker (quit in 1994) Former EtOH user (4-5 beers a day) Home Meds: Aspirin [Aspirin EC] 81 mg PO HS 04/19/19 Clopidogrel Bisulfate [Plavix] 75 mg PO DAILY 04/19/19 Metoprolol Tartrate 50 500s PO DAILY 04/19/19 Tamsulosin HCl [Flomax] 0.4 mg PO HS 04/19/19 Rosuvastatin [Crestor -] 5 mg PO HS 10/05/19 Cholecalciferol (Vitamin D3) [Vitamin D3] 50 mcg PO DAILY 10/21/19 Isosorbide Mononitrate [Isosorbide Mononitrate ER] 30 mg PO DAILY 01/06/20 Omeprazole 40 mg PO DAILY 01/06/20 Albuterol Sulfate [Albuterol Sulfate Hfa] 8.5 gm IH TID PRN #1 hfa.aer.ad 02/07/20 Allergies Bee venom protein (honey bee) Lidocaine - gets very ill ROS: CONSTITUTIONAL: Absent: fever, generalized weakness, malaise, loss of appetite, weight change CARDIOVASCULAR: Absent: see HPI. RESPIRATORY: Absent: wheezing, stridor GASTROINTESTINAL:Absent: abdominal distension, diarrhea GENITOURINARY: Absent: dysuria, frequency, urgency, hesitancy, hematuria, flank pain, genital pain MUSCULOSKELETAL: Absent: myalgia, arthralgia, joint swelling, neck pain SKIN: Absent: rash, itching, pallor HEMATOLOGIC/IMMUNOLOGIC: Absent: easy bleeding, easy bruising, lymphadenopathy NEUROLOGIC: Absent: headache, focal weakness, paresthesias, dizziness, unsteady gait, mental status changes, PSYCHIATRIC: Absent: anxiety, depression, suicidal or homicidal ideation, hallucinations. PE: GENERAL: A&O. NAD HEAD: NC. AT. EYES: PERRL, sclera anicteric, conjunctiva clear. NECK: Normal ROM, supple without lymphadenopathy, JVD, or masses. LUNGS: CTA bilat. Unlabored respiratins on room air. HEART: RRR ABD: Soft, nontender, not distended, normoactive bowel sounds, no palpable pulseatile mass appreciated. MUSCULOSKELETAL: No CVAT bilat.. UE: 2+ pulses, warm, well-perfused. No cyanosis. Cap refill <2 seconds. No peripheral edema. LE: 2+ pulses, warm, well-perfused. No calf tenderness. No peripheral edema. PSYCH: Cooperative. Good eye contact. Appropriate mood and affect. Last Vital Signs Temp Pulse Resp BP Pulse Ox 97.4 F L 62 16 144/68 96 02/17/20 10:24 02/17/20 10:48 02/17/20 10:48 02/17/20 10:48 02/17/20 10:48 CBC 02/17/20 10:46 BMP 02/17/20 10:46 Troponin 02/17/20 10:46 Troponin I < 0.02 Hepatic Panel Total Bilirubin 0.8 mg/dL (0.2-1) 02/17/20 10:46 AST 183 U/L (15-37) H 02/17/20 10:46 ALT 51 U/L (13-61) 02/17/20 10:46 Alkaline Phosphatase 209 U/L (45-117) H 02/17/20 10:46 Albumin 2.8 g/dl (3.4-5.0) L 02/17/20 10:46 Problem List - Problems (1) Syncope Assessment/Plan: 79 yo male admitted s/p witnessed syncopal episode after having EKG in Cardiologists office. EKG 50s in office. Atropine was administered by Dr. Moser. Spontaneous return of circulation and respirations. Patient has large liver mass which could be causing mass effect on internal organs increasing his nausea/vomiting precipitating his syncopal episode. He is resting comfortably at this time without complaint. -Admit patient to tele for continuous monitoring - if arrythmia identified, plan for PPM - if no arrythmia identified, recommend loop recorder -Medical optimization / clearance -Cardio f/u -Tight glycemic control -DVT PPx -Antiemetics PRN -Above plan discussed with Dr. Lake and agrees. Code(s): R55 - SYNCOPE AND COLLAPSE Qualifiers: Syncope type: unspecified Qualified Code(s): R55 - Syncope and collapse (2) CAD (coronary artery disease) Code(s): I25.10 - ATHSCL HEART DISEASE OF [place] CORONARY ARTERY W/O ANG PCTRS (3) COPD (chronic obstructive pulmonary disease) Code(s): J44.9 - CHRONIC OBSTRUCTIVE PULMONARY DISEASE, UNSPECIFIED (4) Hx of CABG Code(s): Z95.1 - PRESENCE OF AORTOCORONARY BYPASS GRAFT (5) Obesity Code(s): E66.9 - OBESITY, UNSPECIFIED Visit type - Case Type Case Type: ED Admission - Emergency Emergency Visit: Yes ED Registration Date: 02/17/20 Care time: The patient presented to the Emergency Department on the above date and was hospitalized for further evaluation of their emergent condition. - New patient This patient is new to me today: Yes Date on this admission: 02/17/20
[2020-02-17] MEDS ORDERED: MAGNESIUM SULF 50% (8.12 MEQ/2 ML-1 GM VIAL) IVPB ONE (12:53)
--- NOTE | 2020-02-17 13:04 | PDOC ---
Documentation entered by Gregg Mercedes SCRIBE, acting as scribe for Yaniv Rai MD. Yaniv Rai MD: This documentation has been prepared by the Liza mcdaniel Nirvannie, SCRIBE, under my direction and personally reviewed by me in its entirety. I confirm that the documentation accurately reflects all work, treatment, procedures, and medical decision making performed by me. 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 As per patient, he was being evaluated by his collections technician and while getting an EKG he began to feel ill, vomited x1, and syncopized. While in the ED, patient experienced one episode of NBNB emesis. He notes his pain to worsen with sitting upright and feel better while lying flat. He denies any recent cough, shortness of breath, fevers, or dizziness. Allergies: Bee venom, Lidocaine. Social History: Former daily EtOH user (4-5 beers a day), former nicotine user (quit x25 years), Primary Care Physician: Dr. Gastelum [place] Trimmer: Dr. Moser Past History - Past Medical History Allergies/Adverse Reactions: Allergies Allergy/AdvReac Type Severity Reaction Status Date / Time bee venom protein (honey bee) Allergy Verified 02/17/20 10:28 lidocaine Allergy "gets very Verified 02/17/20 10:28 ill" Home Medications: Ambulatory Orders Aspirin [Aspirin EC] 81 mg PO HS 04/19/19 Clopidogrel Bisulfate [Plavix] 75 mg PO DAILY 04/19/19 Metoprolol Tartrate 50 500s PO DAILY 04/19/19 Tamsulosin HCl [Flomax] 0.4 mg PO HS 04/19/19 Rosuvastatin [Crestor -] 5 mg PO HS 10/05/19 Cholecalciferol (Vitamin D3) [Vitamin D3] 50 mcg PO DAILY 10/21/19 Isosorbide Mononitrate [Isosorbide Mononitrate ER] 30 mg PO DAILY 01/06/20 Omeprazole 40 mg PO DAILY 01/06/20 Albuterol Sulfate [Albuterol Sulfate Hfa] 8.5 gm IH TID PRN #1 [email or web address] 02/07/20 Anemia: No Asthma: No Cancer: No Cardiac Disorders: Yes ("blocked artery") CVA: No COPD: No CHF: No Dementia: No Diabetes: Yes (type 2 not medicated) GI Disorders: No Disorders: No HTN: Yes Hypercholesterolemia: No Liver Disease: Yes (liver cancer Sep 2019) Seizures: No Thyroid Disease: No - Surgical History Abdominal Surgery: No Appendectomy: No Cardiac Surgery: Yes (CABG) Cholecystectomy: No GI Surgery: No Lung Surgery: No Neurologic Surgery: No Orthopedic Surgery: No - Immunization History Immunization Up to Date: Yes - Psycho Social/Smoking Cessation Hx Smoking History: Former smoker Have you smoked in the past 12 months: No Number of Cigarettes Smoked Daily: 0 If you are a former smoker, when did you quit?: 1995 Cigars Per Day: 0 Hx Alcohol Use: No Drug/Substance Use Hx: No Substance Use Type: None Hx Substance Use Treatment: No Review of Systems - Review of Systems Able to Perform ROS?: Yes Comments:: 02/17/20 10:51 CONSTITUTIONAL: No fever, no chills, no fatigue EYES: No visual changes ENT: No ear pain, no sore throat CARDIOVASCULAR: No palpitations RESPIRATORY: No cough, no SOB GI: +Abdominal pain. nausea. vomiting. No constipation, no diarrhea GENITOURINARY: No dysuria, no frequency, no hematuria MUSKULOSKELETAL: No back pain, no joint pain, no myalgias SKIN: No rash NEURO: +Syncope. No headache All Other Systems: Reviewed and Negative *Physical Exam - Physical Exam 02/17/20 14:04 EXAMINATION CONSTITUTIONAL: Awake, alert; well-nourished; in no apparent distress HEAD: Normocephalic; atraumatic EYES: PERRL; EOM intact, no scleral icterus ENMT: External appears normal; normal oropharynx NECK: Supple; non-tender; no cervical lymphadenopathy CARD: Normal S1, S2; 2/6 se murmur, no rubs, or gallops RESP: Normal chest excursion with respiration; breath sounds clear and equal bilaterally; no wheezes, rhonchi, or rales ABD: Soft, + large soft tssue mass palpable in the ruq c/w hepatoma (known); no palpable organomegaly, no palpable hernias EXT: Normal ROM in all four extremities; non-tender to palpation; distal pulses intact SKIN: Warm, dry, no rash NEURO: No focal neurological deficiencies. Heart Score/ECG Review #1 02/17/20 12:01 EKG performed at: 17 February 2020 10:30:26 Vent Rate 87 bpm VT interval 208 ms QRS duration 104 ms QT/QTc 416/500 ms P-R-T axes 73 -6 71 Normal sinus rhythm RSR or QR pattern in V1 suggests right ventricular conduction delay Prolonged QT Abnormal ECG ED Treatment Course - LABORATORY CBC & Chemistry Diagram: 02/17/20 10:46 02/17/20 10:46 Medical Decision Making - Medical Decision Making 02/17/20 14:06 Patient 79-year-old male with multiple comorbidities who presents to the ER after a witnessed syncopal episode while at the collections technician office where he was noted to become pulseless and apneic. Prior to initiation of CPR, patient had return of spontaneous circulation and breathing. On arrival in the ED, patient is noted to be awake and alert, actively vomiting with vital signs noted. Large soft tissue mass was noted in the right lower quadrant. EKG revealed prolonged QTC, T wave inversions in 1 and aVL when compared to previous. CBC is noted to be within normal limit. CMP reveals significantly decreased magnesium. Torsade is suspected. Will administer 2 g of IV magnesium sulfate. Will admit to telemetry. Case discussed with Dr. Moser of cardiology. He agrees with the plan of care. Discharge - Discharge Information Problems reviewed: Yes Clinical Impression/Diagnosis: Syncope Qualifiers: Syncope type: unspecified Qualified Code(s): R55 - Syncope and collapse Condition: Fair - Admission Yes - Follow up/Referral - Patient Discharge Instructions - Post Discharge Activity
[2020-02-17] MEDS ORDERED: MAGNESIUM 1GM/D5W - 2 GM/200 ML IVPB IVPB ONE (13:06)
[2020-02-17] MEDS ORDERED: ALBUTEROL SO4 0.083% IH SOL 2.5 MG/3 ML VIAL.NEB. NEB PRN (14:32)
--- NOTE | 2020-02-17 14:38 | HP ---
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 As per patient, he was being evaluated by his senior quality analyst and while getting an EKG he began to feel ill, vomited x1, and syncopized. While in the ED, patient experienced one episode of NBNB emesis. d/w cardio dr Gallagher and ER dr Yanez History Source: Patient Limitations to Obtaining History: No Limitations - Past Medical History Cardiovascular: Yes: Aortic Stenosis, CAD Pulmonary: Yes: COPD. No: O2 Dependent, Pneumonia Gastrointestinal: Yes: Other (Liver CA) Hepatobiliary: Yes: Other (hepatoma) Renal/: Yes: Renal Inusuff Heme/Onc: Yes: Anemia Endocrine: Yes: Diabetes Mellitus - Past Surgical History Past Surgical History: Yes: CABG - Smoking History Smoking history: Former smoker Have you smoked in the past 12 months: No Aproximately how many cigarettes per day: 0 If you are a former smoker, when did you quit?: 1994 - Alcohol/Substance Use Hx Alcohol Use: No History of Substance Use: reports: None - Social History Usual Living Arrangement: Yes: With Spouse Do you think of yourself as: Straight/Heterosexual ADL: Independent History of Recent Travel: No Home Medications - Allergies Allergies/Adverse Reactions: Allergies Allergy/AdvReac Type Severity Reaction Status Date / Time bee venom protein (honey bee) Allergy Verified 02/17/20 10:28 lidocaine Allergy "gets very Verified 02/17/20 10:28 ill" - Home Medications Home Medications: Ambulatory Orders Aspirin [Aspirin EC] 81 mg PO HS 04/19/19 Clopidogrel Bisulfate [Plavix] 75 mg PO DAILY 04/19/19 Metoprolol Tartrate 50 500s PO DAILY 04/19/19 Tamsulosin HCl [Flomax] 0.4 mg PO HS 04/19/19 Rosuvastatin [Crestor -] 5 mg PO HS 10/05/19 Cholecalciferol (Vitamin D3) [Vitamin D3] 50 mcg PO DAILY 10/21/19 Isosorbide Mononitrate [Isosorbide Mononitrate ER] 30 mg PO DAILY 01/06/20 Omeprazole 40 mg PO DAILY 01/06/20 Albuterol Sulfate [Albuterol Sulfate Hfa] 8.5 gm IH TID PRN #1 [email or web address] 02/06 Family Medical History Family History: Unremarkable Review of Systems - Review of Systems Constitutional: reports: Diaphoresis. denies: Chills, Fever, Lethargy Eyes: denies: Blind Spots, Blurred Vision HENT: denies: Difficult Swallowing, Ear Pain, Epistaxis Neck: denies: Stiffness Cardiovascular: denies: Chest Pain, Palpitations, Shortness of Breath Respiratory: reports: SOB. denies: Cough Gastrointestinal: reports: Nausea, Vomiting. denies: Abdominal Pain, Constipation, Diarrhea, Rectal Bleeding, Vomiting Blood Genitourinary: denies: Burning, Dysuria, Flank Pain, Frequency Musculoskeletal: denies: Back Pain, Extremity Pain, Muscle Weakness Integumentary: denies: Blister, Bruising, Eczema, Erythema, Rash, Wound Neurological: reports: Dizziness, Syncope. denies: Change in Speech, Confusion, Headache, Numbness, Seizure, Unsteady Gait, Weakness Endocrine: reports: Excessive Sweating. denies: Flushing Hematology/Lymphatic: denies: Easily Bruised, Excessive Bleeding Psychiatric: denies: Altered Sleep Pattern, Anxiety, Depression, Suicidal Physical Examination Vital Signs: Vital Signs Temperature 98.3 F 02/17/20 13:55 Pulse Rate 65 02/17/20 13:55 Respiratory Rate 16 02/17/20 13:55 Blood Pressure 126/74 02/17/20 13:55 O2 Sat by Pulse Oximetry (%) 98 02/17/20 13:55 Constitutional: Yes: No Distress, Calm Eyes: Yes: Conjunctiva Clear HENT: Yes: Atraumatic Neck: Yes: Supple Cardiovascular: Yes: Regular Rate and Rhythm Respiratory: Yes: CTA Bilaterally Gastrointestinal: Yes: Soft, Palpable Mass Renal/: No: CVA Tenderness - Left, CVA Tenderness - Right, Hematuria Musculoskeletal: No: Joint Stiffness, Joint Swelling Extremities: No: Cold, Cool, Cyanosis Edema: No Integumentary: No: Rash, Venous Stasis Changes Neurological: Yes: Alert, Oriented ...Motor Strength: WNL Psychiatric: Yes: Alert, Oriented. 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
[2020-02-17 15:17] VITALS: BMI 31.6
[2020-02-17] MEDS ORDERED: PT OWN MED DRAWER 7, Y5N ONE (16:12)
--- NOTE | 2020-02-17 21:19 | CON.CARD ---
Consult Consult Specialty:: Cardiac Electrophysiology Referred by:: Dr. Moser Reason for Consultation:: Bradycardia. Syncope - History of Present Illness Chief Complaint: Bradycardia, Syncope History of Present Illness: Mr. Voss is a 79 year old male with a pmh of cad s/p cabg, AVR 2016, htn, diabetes, renal insufficiency, liver cancer 10/2019 treated at [facility], awaiting radiation 02/28 who presented with an episode of syncope (witnessed) in his cardiologists office, sent to ER for further eval. The patient was in Dr. Moser office today for routine evaluation. He had an ekg done which showed sinus bradycardia in the 50's per report. Afterwards, the patient had epigastric discomfort followed by nausea and vomiting. He thereafter syncopized. The patient was examined and found to be pulseless and apneic. Atropine was administered and the patient had spontaneous return of circulation and respirations. The patient describes 2 prior similar events in the past. He was evaluated at [facility] for a similar event prior to a cardiac catheterization. He was seen by EP and was not recommended for a pacemaker. Her was scheduled for an outpt event monitor that was reportedly done and without significant findings (report not available for review). He denies any chest pain, dyspnea, palpitations. He states that every episode of syncope has been preceded by nausea and vomiting. He has not had syncope wit hout those preceding symptoms. Echo 01/06/2020 normal LVEF. Triple Bypass Bioprostatic Aortic Valve [facility] [place] 2016 Nuclear MIBI stress March 2017 negative Cardiac Cath @ [facility] by 10/01/19 Calcified arteries Left Main 30% LAD proximal 60%, mid 95%, distal 100% D2 90% medium size long vessel LCx proximal 100% OM1 100% OM2 100% Ramus 90% medium size long vessel RCA proximal 70%, mid 90%, distal 50%, RPDA 90% SVG to OM2 patent with mild distal disease [place] arteries MALHOTRA to LAD patent with mild to moderate distal disease [place] vessel 2019 - Large Liver hepatoma treated at - no evidence of metastasis- awaiting IR evaluation for possible embolization chemotherapy. C.Cath @ [facility] by Dr. Philip 01/08/20 Normal right heart pressures The patient was bradycardiac at the beginning of the procedure Patent IM graft to the LAD Patent SVG to the OM2 Mid LM lesion is 30% stenosed. Prox LAD lesion is 60% stenosed. Dist LAD lesion is 100% stenosed. Mid Cx lesion is 100% stenosed. 2nd Diag lesion is 90% stenosed. 1st Mrg lesion is 100% stenosed. 2nd Mrg lesion is 100% stenosed. Ost RCA lesion is 80% stenosed. Prox RCA lesion is 80% stenosed. Mid RCA lesion is 90% stenosed. Dist RCA lesion is 70% stenosed. RPDA lesion is 90% stenosed. Mid LAD lesion is 95% stenosed. The attending physician reevaluated the patient prior to ordering sedation. The patient level of consciousness and physiological status were monitoring throughout the procedure by a sedation trained nurse. s/p coronary angiography with grafts and RHC inpatient Dx Unstable angina/history of positive stress test/CAD/Syncope Calcified arteries Left Main 30% LAD proximal 60%, mid 95%, distal 100% D2 90% medium size long vessel LCx proximal 100% OM1 100% OM2 100% Ramus 90% medium size long vessel RCA ostial 80%, proximal 80%, mid 90%, distal 70%, RPDA 90% SVG to OM2 patent with mild distal disease [place] arteries MALHOTRA to LAD patent with mild to moderate distal disease [place] vessel Before procedure, patient became bradycardiac and hypotensive and was treated with Atropine. - History Source History Provided By: Patient, Medical Record Limitations to Obtaining History: No Limitations - Past Medical History Cardio/Vascular: Yes: Aortic Stenosis, CAD Pulmonary: Yes: COPD. No: O2 Dependent, Pneumonia Gastrointestinal: Yes: Other (Liver CA) Hepatobiliary: Yes: Other (hepatoma) Renal/: Yes: Renal Inusuff Endocrine: Yes: Diabetes Mellitus - Past Surgical History Past Surgical History: Yes: CABG - Alcohol/Substance Use Hx Alcohol Use: No History of Substance Use: reports: None - Smoking History Smoking history: Former smoker Have you smoked in the past 12 months: No Aproximately how many cigarettes per day: 0 If you are a former smoker, when did you quit?: 1994 - Social History Usual Living Arrangement: With Spouse ADL: Independent History of Recent Travel: No Home Medications - Allergies Allergies/Adverse Reactions: Allergies Allergy/AdvReac Type Severity Reaction Status Date / Time bee venom protein (honey bee) Allergy Verified 02/17/20 10:28 lidocaine Allergy "gets very Verified 02/17/20 10:28 ill" - Home Medications Home Medications: Ambulatory Orders RX: Aspirin [Aspirin EC] 81 mg PO HS 04/19/19 RX: Clopidogrel Bisulfate [Plavix] 75 mg PO DAILY 04/19/19 RX: Metoprolol Tartrate 50 500s PO DAILY 04/19/19 RX: Tamsulosin HCl [Flomax] 0.4 mg PO HS 04/19/19 RX: Rosuvastatin [Crestor -] 5 mg PO HS 10/05/19 RX: Cholecalciferol (Vitamin D3) [Vitamin D3] 50 mcg PO DAILY 10/21/19 RX: Isosorbide Mononitrate [Isosorbide Mononitrate ER] 30 mg PO DAILY 01/06/20 RX: Omeprazole 40 mg PO DAILY 01/06/20 Albuterol Sulfate [Albuterol Sulfate Hfa] 8.5 gm IH TID PRN #1 [email or web address] 02/07/20 Family Medical History Family History: Denies (fam hx of scd) Review of Systems - Review of Systems Constitutional: denies: Chills, Fever HENT: denies: Epistaxis Neck: denies: Decreased ROM, Tenderness Cardiovascular: denies: Chest Pain, Palpitations Respiratory: denies: SOB on Exertion Gastrointestinal: reports: Abdominal Pain. denies: Nausea, Vomiting, Vomiting Blood Musculoskeletal: denies: Decreased ROM Integumentary: denies: Wound Neurological: reports: Change in LOC, Syncope Hematology/Lymphatic: denies: Excessive Bleeding Psychiatric: denies: Anxiety, Depression Vital Signs: Vital Signs Temperature 98.5 F 02/17/20 17:00 Pulse Rate 72 02/17/20 17:00 Respiratory Rate 18 02/17/20 17:00 Blood Pressure 103/50 L 02/17/20 17:00 O2 Sat by Pulse Oximetry (%) 98 02/17/20 15:00 Constitutional: Yes: No Distress, Calm Eyes: Yes: EOM Intact HENT: Yes: WNL, Atraumatic, Normocephalic Neck: Yes: Trachea Midline Respiratory: Yes: Regular, CTA Bilaterally Gastrointestinal: Yes: Normal Bowel Sounds, Soft Cardiovascular: Yes: Regular Rate and Rhythm JVD: No Carotid Bruit: No Heart Sounds: Yes: S1, S2 Edema: No Peripheral Pulses WNL: No Neurological: Yes: WNL, Alert, Oriented Psychiatric: Yes: Alert, Oriented - Other Data Labs, Other Data: CBC, BMP 02/17/20 10:46 02/17/20 10:46 Troponin, BNP 02/17/20 10:46 Troponin I < 0.02 Troponin, BNP 02/17/20 10:46 Troponin I < 0.02 Echo: Report Reviewed Ejection Fraction %: LVEF > or = 40 % Imaging - Results EKG: Image Reviewed Problem List - Problems (1) Vasovagal syncope Code(s): R55 - SYNCOPE AND COLLAPSE (2) HTN (hypertension) Code(s): I10 - ESSENTIAL (PRIMARY) HYPERTENSION (3) Syncope Code(s): R55 - SYNCOPE AND COLLAPSE Qualifiers: Syncope type: unspecified Qualified Code(s): R55 - Syncope and collapse (4) Abdominal pain Code(s): R10.9 - UNSPECIFIED ABDOMINAL PAIN Qualifiers: Abdominal location: right upper quadrant Qualified Code(s): R10.11 - Right upper quadrant pain (5) CAD (coronary artery disease) Code(s): I25.10 - ATHSCL HEART DISEASE OF [place] CORONARY ARTERY W/O ANG PCTRS (6) Hx of CABG Code(s): Z95.1 - PRESENCE OF AORTOCORONARY BYPASS GRAFT (7) Near syncope Code(s): R55 - SYNCOPE AND COLLAPSE Assessment/Plan Mr. Voss is a 79 year old male with a pmh of cad s/p cabg, AVR 2016, htn, diabetes, renal insufficiency, liver cancer 10/2019 treated at [facility], awaiting radiation 02/28 who presented with likely vasovagal syncope. no events on telemetry. ekg without acute findings. he has had 3 episodes of syncope in the last few months, each episode preceded by nausea/vomiting. he has a known liver mass which is likely contributing. no evidence of high degree av block noted thus far. described as "pulseless" in the office prior to presentation. this was discussed at great length with the patient. hx reviewed. indications for monitoring has been discussed. pt reportedly had an event monitor which was neg but he did not have any symptoms while wearing as well. we discussed ILR for further eval. pt in agreement. r/b/a discussed. no indication for ppm at this time. consent obtained and placed in chart. all questions answered. his episodes are not positional related. - plan for ILR implant tomorrow am. would reconsider for ppm if telemetry revealing overnight - keep k 4-4.5, mg 2-2.5 - consent in chart - care as per primary services, cardiology Time spent 55 minutes Thank you for allowing me to participate in the care of your patient. Please call with any questions.
[2020-02-17] MEDS: MAGNESIUM OXIDE 400 MG TABLET (FP) PO SCH (22:15)
[2020-02-17] MEDS: ROSUVASTATIN CA 5 MG TABLET (FP) PO SCH (22:15)
[2020-02-17] MEDS: ASPIRIN COATED 81 MG TABLET.EC PO SCH ×2 (22:15→22:20)
[2020-02-17] MEDS: TAMSULOSIN HCL 0.4 MG CAP PO SCH (22:15)
[2020-02-18 07:34] LABS: BASO % 0.7 % (0-2.0); EOS % 3.4 % (0-4.5); HEMATOCRIT 36.5 % (35.4-49); HEMOGLOBIN 12.7 GM/dL (11.7-16.9); MCH 31.5 pg (25.7-33.7); MCHC 34.7 g/dl (32.0-35.9); MEAN CELL VOLUME 90.7 fl (80-96); MEAN PLT VOLUME 7.4 fl (7.5-11.1); MONO % 8.4 % (3.8-10.2); NEUT % 69.5 % (42.8-82.8); PLATELET COUNT 259 K/MM3 (134-434); RBC 4.02 M/mm3 (4.00-5.60)
[2020-02-18 07:58] LABS: INR 1.13 (0.83-1.09); PROTHROMBIN TIME (PATIENT) 13.4 SEC (9.7-13.0)
[2020-02-18 08:00] LABS: ACTIVATED PTT 35.5 SECONDS (25.2-36.5)
[2020-02-18 08:09] LABS: ALK PHOS 237 U/L (45-117); ANION GAP 7 MMOL/L (8-16); BILIRUBIN,TOTAL 0.8 mg/dL (0.2-1); BLOOD UREA NITROGEN 16.6 mg/dL (7-18); CALCIUM 8.4 mg/dL (8.5-10.1); CHLORIDE 103 mmol/L (98-107); CO2 28 mmol/L (21-32); CREATININE 0.9 mg/dL (0.55-1.3); GLUCOSE,RANDOM 97 mg/dL (74-106); MAGNESIUM 1.9 mg/dL (1.8-2.4); POTASSIUM 4.8 mmol/L (3.5-5.1); SGOT/AST 199 U/L (15-37); SGPT/ALT 54 U/L (13-61); SODIUM 138 mmol/L (136-145); TOT PROT 6.4 g/dl (6.4-8.2)
[2020-02-18] MEDS ORDERED: LIDOCAINE 1%-EPI 1:100,000 30 ML MDV IJ ONE (08:31)
[2020-02-18] MEDS: ISOSORBIDE MONONITRATE 30 MG TAB.SR.24H (FP) PO SCH ×2 (09:12→09:42)
[2020-02-18] MEDS: MAGNESIUM OXIDE 400 MG TABLET (FP) PO SCH ×2 (09:13→21:48)
[2020-02-18] MEDS: PANTOPRAZOLE 40 MG TABLET PO SCH (09:13)
[2020-02-18] MEDS: CHOLECALCIFEROL (VIT D3) 1,000 UNIT (25 MCG) TABLET PO SCH (09:14)
--- NOTE | 2020-02-18 10:20 | EKG ---
Test Reason : Blood Pressure : / mmHG Vent. Rate : 065 BPM Atrial Rate : 065 BPM P-R Int : 208 ms QRS Dur : 100 ms QT Int : 438 ms P-R-T Axes : 071 -03 065 degrees QTc Int : 455 ms NORMAL SINUS RHYTHM RSR' OR QR PATTERN IN V1 SUGGESTS RIGHT VENTRICULAR CONDUCTION DELAY BORDERLINE ECG WHEN COMPARED WITH ECG OF 04-FEB-2020 16:12, NO SIGNIFICANT CHANGE WAS FOUND Confirmed by BOBBY MANJARREZ, JANY ([id number]) on 02/18/2020 10:20:13 AM Referred By: Confirmed By:JANY ROSALES MD
--- NOTE | 2020-02-18 10:21 | EKG ---
Test Reason : Blood Pressure : / mmHG Vent. Rate : 085 BPM Atrial Rate : 085 BPM P-R Int : 176 ms QRS Dur : 096 ms QT Int : 384 ms P-R-T Axes : 081 044 072 degrees QTc Int : 456 ms NORMAL SINUS RHYTHM POSSIBLE LEFT ATRIAL ENLARGEMENT RSR' OR QR PATTERN IN V1 SUGGESTS RIGHT VENTRICULAR CONDUCTION DELAY BORDERLINE ECG WHEN COMPARED WITH ECG OF 17-FEB-2020 13:54, NO SIGNIFICANT CHANGE WAS FOUND Confirmed by BOBBY MANJARREZ, JANY ([id number]) on 02/18/2020 10:21:19 AM Referred By: AMY GONSALEZ Confirmed By:JANY ROSALES MD
[2020-02-18] MEDS ORDERED: MIDAZOLAM HCL 2 MG/2 ML SINGLE DOSE VIAL ONE (10:50)
[2020-02-18] MEDS ORDERED: LIDOCAINE HCL 1%, 10 MG/ML (20ML VIAL) ONE (13:29)
[2020-02-18] MEDS ORDERED: BUPIVACAINE HCL/PF 0.5% (5 MG/ML) 30 ML VIAL IJ ONE (13:50)
--- NOTE | 2020-02-18 14:11 | OP ---
Operative Note - Note: Operative Date: 02/18/20 Pre-Operative Diagnosis: Syncope Operation: ILR implant Implants: [employer] LINQ Implantable Loop Recorder Post-Operative Diagnosis: Same as Pre-op Surgeon: Jay [place] V Clinical Laboratory Service Teacher: Redd Curiel Anesthesia: Local Estimated Blood Loss (mls): 0 Operative Report Dictated: Yes
--- NOTE | 2020-02-18 14:41 | SURG ---
Surgery Human Relations Teacher Note Human Relations Teacher: Redd Curiel PA-C Date of Service: 02/18/20 Diagnosis: Syncope Procedure: Implantable Loop Recorder I was present for the entirety of the operative procedure. For further detail, please refer to operative report. Visit type - Case Type Case Type: ED Admission
--- NOTE | 2020-02-18 16:09 | PN ---
Progress Note, Physician Chief Complaint: syncope History of Present Illness: Mr. Voss is a 79 year old male with a pmh of cad s/p cabg, AVR 2016, htn, diabetes, renal insufficiency, liver cancer 10/2019 treated at [facility], awaiting radiation 02/28 who presented with an episode of syncope (witnessed) in his cardiologists office, sent to ER for further eval. The patient was in Dr. Moser office today for routine evaluation. He had an ekg done which showed sinus bradycardia in the 50's per report. Afterwards, the patient had epigastric discomfort followed by nausea and vomiting. He thereafter syncopized. The patient was examined and found to be pulseless and apneic. Atropine was administered and the patient had spontaneous return of circulation and respirations. The patient describes 2 prior similar events in the past. He was evaluated at [facility] for a similar event prior to a cardiac catheterization. He was seen by EP and was not recommended for a pacemaker. Her was scheduled for an outpt event monitor that was reportedly done and without significant findings (report not available for review). He denies any chest pain, dyspnea, palpitations. He states that every episode of syncope has been preceded by nausea and vomiting. He has not had syncope without those preceding symptoms. Echo 01/06/2020 normal LVEF. Triple Bypass Bioprostatic Aortic Valve [facility] [place] 2016 Nuclear MIBI stress March 2017 negative Cardiac Cath @ [facility] by 10/01/19 Calcified arteries Left Main 30% LAD proximal 60%, mid 95%, distal 100% D2 90% medium size long vessel LCx proximal 100% OM1 100% OM2 100% Ramus 90% medium size long vessel RCA proximal 70%, mid 90%, distal 50%, RPDA 90% SVG to OM2 patent with mild distal disease [place] arteries MALHOTRA to LAD patent with mild to moderate distal disease [place] vessel 2019 - Large Liver hepatoma treated at - no evidence of metastasis- awaiting IR evaluation for possible embolization chemotherapy. C.Cath @ [facility] by Dr. Philip 01/08/20 Normal right heart pressures The patient was bradycardiac at the beginning of the procedure Patent IM graft to the LAD Patent SVG to the OM2 Mid LM lesion is 30% stenosed. Prox LAD lesion is 60% stenosed. Dist LAD lesion is 100% stenosed. Mid Cx lesion is 100% stenosed. 2nd Diag lesion is 90% stenosed. 1st Mrg lesion is 100% stenosed. 2nd Mrg lesion is 100% stenosed. Ost RCA lesion is 80% stenosed. Prox RCA lesion is 80% stenosed. Mid RCA lesion is 90% stenosed. Dist RCA lesion is 70% stenosed. RPDA lesion is 90% stenosed. Mid LAD lesion is 95% stenosed. The attending physician reevaluated the patient prior to ordering sedation. The patient level of consciousness and physiological status were monitoring throughout the procedure by a sedation trained nurse. s/p coronary angiography with grafts and C inpatient Dx Unstable angina/history of positive stress test/CAD/Syncope Calcified arteries Left Main 30% LAD proximal 60%, mid 95%, distal 100% D2 90% medium size long vessel LCx proximal 100% OM1 100% OM2 100% Ramus 90% medium size long vessel RCA ostial 80%, proximal 80%, mid 90%, distal 70%, RPDA 90% SVG to OM2 patent with mild distal disease [place] arteries MALHOTRA to LAD patent with mild to moderate distal disease [place] vessel Before procedure, patient became bradycardiac and hypotensive and was treated with Atropine. - Current Medication List Current Medications: Active Medications Albuterol Sulfate (Ventolin 0.083% Nebulizer Soln -) 1 amp NEB TID PRN PRN Reason: WHEEZING Aspirin (Ecotrin -) 81 mg PO HS [facility] Last Admin: 02/17/20 22:20 Dose: Not Given Documented by: Cholecalciferol (Vitamin D3 -) 2,000 unit PO DAILY [facility] Last Admin: 02/18/20 09:14 Dose: 2,000 unit Documented by: Isosorbide Mononitrate (Imdur -) 30 mg PO DAILY [facility] Last Admin: 02/18/20 09:42 Dose: 30 mg Documented by: Magnesium Oxide (Mag-Ox -) 400 mg PO BID [facility] Last Admin: 02/18/20 09:13 Dose: 400 mg Documented by: Metoprolol Succinate (Toprol Xl -) 50 mg PO DAILY [facility] Last Admin: 02/18/20 09:13 Dose: 50 mg Documented by: Pantoprazole Sodium (Protonix -) 40 mg PO DAILY [facility] Last Admin: 02/18/20 09:13 Dose: 40 mg Documented by: Rosuvastatin Calcium (Crestor -) 5 mg PO [facility] Last Admin: 02/17/20 22:15 Dose: 5 mg Documented by: Tamsulosin HCl (Flomax -) 0.4 mg PO [facility] Last Admin: 02/17/20 22:15 Dose: 0.4 mg Documented by: - Objective Vital Signs: Vital Signs Temperature 97.7 F 02/18/20 14:00 Pulse Rate 64 02/18/20 14:12 Respiratory Rate 02/18/20 14:12 Blood Pressure 101/56 L 02/18/20 14:12 O2 Sat by Pulse Oximetry (%) 97 02/18/20 14:12 Constitutional: Yes: Well Nourished, No Distress, Calm Eyes: Yes: EOM Intact HENT: Yes: Atraumatic Neck: Yes: Supple, Trachea Midline Cardiovascular: Yes: Regular Rate and Rhythm Respiratory: Yes: Regular, CTA Bilaterally Gastrointestinal: Yes: Normal Bowel Sounds, Soft Musculoskeletal: Yes: WNL Edema: No Peripheral Pulses WNL: No Neurological: Yes: Alert, Oriented Psychiatric: Yes: Alert, Oriented Labs: CBC, BMP 02/18/20 06:00 02/18/20 05:48 INR, PTT INR 1.13 (0.83-1.09) H 02/18/20 05:48 - ....Imaging EKG: Image Reviewed Problem List - Problems (1) Vasovagal syncope Code(s): R55 - SYNCOPE AND COLLAPSE (2) HTN (hypertension) Code(s): I10 - ESSENTIAL (PRIMARY) HYPERTENSION (3) Syncope Code(s): R55 - SYNCOPE AND COLLAPSE Qualifiers: Syncope type: unspecified Qualified Code(s): R55 - Syncope and collapse (4) Abdominal pain Code(s): R10.9 - UNSPECIFIED ABDOMINAL PAIN Qualifiers: Abdominal location: right upper quadrant Qualified Code(s): R10.11 - Right upper quadrant pain (5) CAD (coronary artery disease) Code(s): I25.10 - ATHSCL HEART DISEASE OF [place] CORONARY ARTERY W/O ANG PCTRS (6) Hx of CABG Code(s): Z95.1 - PRESENCE OF AORTOCORONARY BYPASS GRAFT (7) Near syncope Code(s): R55 - SYNCOPE AND COLLAPSE Assessment/Plan Mr. Voss is a 79 year old male with a pmh of cad s/p cabg, AVR 2017, htn, diabetes, renal insufficiency, liver cancer 10/2019 treated at [facility], awaiting radiation 02/28 who presented with likely vasovagal syncope. no events on telemetry including overnight. no indication for ppm at this time. have discussed again indication for ILR and pt agreeable to proceed. consent previously obtained and placed in chart. again discussed risks including risk of infection, vascular injury, bleeding, heart attack, stroke, , etc. pt agreeable to proceed. all questions answered. - plan for ILR implant today - keep k 4-4.5, mg 2-2.5 - consent in chart - care as per primary services, cardiology
--- NOTE | 2020-02-18 17:18 | PN ---
Progress Note, Physician Chief Complaint: in bed NAD s/p ILR feels well if stable and cleared by EP & cardio to DC home and close f/u outpt - Current Medication List Current Medications: Active Medications Albuterol Sulfate (Ventolin 0.083% Nebulizer Soln -) 1 amp NEB TID PRN PRN Reason: WHEEZING Aspirin (Ecotrin -) 81 mg PO [facility] Last Admin: 02/17/20 22:20 Dose: Not Given Documented by: Cholecalciferol (Vitamin D3 -) 2,000 unit PO DAILY [facility] Last Admin: 02/18/20 09:14 Dose: 2,000 unit Documented by: Isosorbide Mononitrate (Imdur -) 30 mg PO DAILY [facility] Last Admin: 02/18/20 09:42 Dose: 30 mg Documented by: Magnesium Oxide (Mag-Ox -) 400 mg PO BID [facility] Last Admin: 02/18/20 09:13 Dose: 400 mg Documented by: Metoprolol Succinate (Toprol Xl -) 50 mg PO DAILY [facility] Last Admin: 02/18/20 09:13 Dose: 50 mg Documented by: Pantoprazole Sodium (Protonix -) 40 mg PO DAILY [facility] Last Admin: 02/18/20 09:13 Dose: 40 mg Documented by: Rosuvastatin Calcium (Crestor -) 5 mg PO [facility] Last Admin: 02/17/20 22:15 Dose: 5 mg Documented by: Tamsulosin HCl (Flomax -) 0.4 mg PO [facility] Last Admin: 02/17/20 22:15 Dose: 0.4 mg Documented by: - Objective Vital Signs: Vital Signs Temperature 97.7 F 02/18/20 14:00 Pulse Rate 64 02/18/20 14:12 Respiratory Rate 20 02/18/20 14:12 Blood Pressure 101/56 L 02/18/20 14:12 O2 Sat by Pulse Oximetry (%) 97 02/18/20 14:12 Constitutional: Yes: No Distress, Calm Eyes: Yes: Conjunctiva Clear HENT: Yes: Atraumatic Neck: Yes: Supple Cardiovascular: Yes: Regular Rate and Rhythm Respiratory: Yes: CTA Bilaterally Gastrointestinal: Yes: Soft, Palpable Mass. No: Tenderness Musculoskeletal: No: Joint Stiffness, Joint Swelling Extremities: No: Cold, Cool, Cyanosis Edema: No Integumentary: No: Rash, Venous Stasis Changes Neurological: Yes: Alert, Oriented ...Motor Strength: WNL Psychiatric: Yes: Alert, Oriented. 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
[2020-02-18] MEDS: ASPIRIN COATED 81 MG TABLET.EC PO SCH (21:48)
[2020-02-18] MEDS: ROSUVASTATIN CA 5 MG TABLET (FP) PO SCH (21:48)
[2020-02-18] MEDS: TAMSULOSIN HCL 0.4 MG CAP PO SCH (21:49)
--- NOTE | 2020-02-19 06:57 | PN ---
Progress Note, Physician Chief Complaint: Pt A&Ox3; no chest pain, dizziness, or palpitations. History of Present Illness: Mr. Voss is a 79 year old white male, with past medical history of hypertension, hyperlipidemia, triple CABG (2017; also s/p bioprosthetic aortic valve replacement); diastolic CHF; diabetes, liver cancer (diagnosed 10/2019, pending radiation 02/28),obese, who presents to the emergency department s/p syncope with epigastric discomfort, nausea, and vomiting. As per patient, he was being evaluated by his zipper slide attacher and while getting an EKG he began to feel ill, vomited x1, and syncopized. While in the ED, patient experienced one episode of NBNB emesis. He notes his pain worsens with sitting upright and feels better while lying flat. He denies any recent cough, shortness of breath, feve rs, or dizziness. Allergies: Bee venom, Lidocaine. Social History: Former daily EtOH user (4-5 beers a day), former nicotine user (quit x25 years), Primary Care Physician: Dr. Gastelum Eddy Current Inspector: Dr. Moser - Current Medication List Current Medications: Active Medications Albuterol Sulfate (Ventolin 0.083% Nebulizer Soln -) 1 amp NEB TID PRN PRN Reason: WHEEZING Aspirin (Ecotrin -) 81 mg PO [facility] Last Admin: 02/18/20 21:48 Dose: 81 mg Documented by: Cholecalciferol (Vitamin D3 -) 2,000 unit PO DAILY [facility] Last Admin: 02/18/20 09:14 Dose: 2,000 unit Documented by: Isosorbide Mononitrate (Imdur -) 30 mg PO DAILY [facility] Last Admin: 02/18/20 09:42 Dose: 30 mg Documented by: Magnesium Oxide (Mag-Ox -) 400 mg PO BID [facility] Last Admin: 02/18/20 21:48 Dose: 400 mg Documented by: Metoprolol Succinate (Toprol Xl -) 50 mg PO DAILY [facility] Last Admin: 02/18/20 09:13 Dose: 50 mg Documented by: Pantoprazole Sodium (Protonix -) 40 mg PO DAILY [facility] Last Admin: 02/18/20 09:13 Dose: 40 mg Documented by: Rosuvastatin Calcium (Crestor -) 5 mg PO [facility] Last Admin: 02/18/20 21:48 Dose: 5 mg Documented by: Tamsulosin HCl (Flomax -) 0.4 mg PO HS [facility] Last Admin: 02/18/20 21:49 Dose: 0.4 mg Documented by: - Objective Vital Signs: Vital Signs Temperature 98.4 F 02/19/20 05:43 Pulse Rate 66 02/19/20 05:43 Respiratory Rate 20 02/19/20 05:43 Blood Pressure 131/54 L 02/19/20 05:43 O2 Sat by Pulse Oximetry (%) 97 02/18/20 21:00 Constitutional: Yes: Anxious, Obese Eyes: Yes: WNL HENT: Yes: WNL Neck: Yes: WNL Cardiovascular: Yes: S1, S2 Respiratory: Yes: WNL Gastrointestinal: Yes: WNL ...Rectal Exam: Yes: Deferred Genitourinary: No: Anuria Breast(s): Yes: WNL Musculoskeletal: Yes: Muscle Weakness Extremities: Yes: Cool Edema: No Peripheral Pulses WNL: Yes Integumentary: Yes: WNL Neurological: Yes: Alert, Oriented, Weakness Labs: CBC, BMP 02/18/20 06:00 02/18/20 05:48 INR, PTT INR 1.13 (0.83-1.09) H 02/18/20 05:48 Abnormal Lab Results 02/18/20 02/18/20 02/18/20 05:48 05:48 06:00 MPV 7.4 L PT with INR 13.40 H INR 1.13 H Anion Gap 7 L Calcium 8.4 L AST 199 H Alkaline Phosphatase 237 H Albumin 3.0 L - ....Imaging Chest X-ray: Image Reviewed EKG: Image Reviewed (NSR) Problem List - Problems (1) HTN (hypertension) Assessment/Plan: on metoprolol ER Code(s): I10 - ESSENTIAL (PRIMARY) HYPERTENSION (2) Syncope Assessment/Plan: repeated episodes. For loop recorder insertion today by Dr. Jay Lake. Code(s): R55 - SYNCOPE AND COLLAPSE Qualifiers: Syncope type: unspecified Qualified Code(s): R55 - Syncope and collapse (3) CAD (coronary artery disease) Code(s): I25.10 - ATHSCL HEART DISEASE OF [place] CORONARY ARTERY W/O ANG PCTRS (4) Hx of CABG Code(s): Z95.1 - PRESENCE OF AORTOCORONARY BYPASS GRAFT (5) Liver cancer Assessment/Plan: s/p radiation therapy Code(s): C22.9 - MALIG NEOPLASM OF LIVER, NOT SPECIFIED PRIMARY OR SEC (6) Obesity Code(s): E66.9 - OBESITY, UNSPECIFIED (7) Shortness of breath Code(s): R06.02 - SHORTNESS OF BREATH (8) Hyperlipidemia Assessment/Plan: On rosuvastatin Code(s): E78.5 - HYPERLIPIDEMIA, UNSPECIFIED
--- NOTE | 2020-02-19 09:23 | PN ---
Progress Note (short form) - Note Progress Note: 79yo M s/p loop recorder placement, POD 1. Pt states that he is feeling well, denies pain around incision site. Denies fever, chills, n/v. Last Vital Signs Temp Pulse Resp BP Pulse Ox 98.4 F 66 20 131/54 L 97 02/19/20 05:43 02/19/20 05:43 02/19/20 05:43 02/19/20 05:43 02/18/20 21:00 CBC, BMP 02/18/20 06:00 02/18/20 05:48 PE: Gen: A&O X3 Resp; breathing comfortably Chest: Lt chest incision is clean no erythema or discharge <Olu Castano - Last Filed: 02/19/20 09:05> - Note Progress Note: pt to be discharged today. dressing removed. will f/u with Dr. Moser for wound check in 1 week. <Jay Lake V - Last Filed: 02/19/20 19:35> Problem List - Problems (1) Syncope Assessment/Plan: Plan -pt appears to be doing well, plan to follow up with Dr. Moser as outpatient -pt cleared from Dr. Lake standpoint. Code(s): R55 - SYNCOPE AND COLLAPSE Qualifiers: Syncope type: unspecified Qualified Code(s): R55 - Syncope and collapse <Olu Castano - Last Filed: 02/19/20 09:05> - Problems (1) Vasovagal syncope Code(s): R55 - SYNCOPE AND COLLAPSE (2) HTN (hypertension) Code(s): I10 - ESSENTIAL (PRIMARY) HYPERTENSION (3) Syncope Code(s): R55 - SYNCOPE AND COLLAPSE Qualifiers: Syncope type: unspecified Qualified Code(s): R55 - Syncope and collapse (4) Abdominal pain Code(s): R10.9 - UNSPECIFIED ABDOMINAL PAIN Qualifiers: Abdominal location: right upper quadrant Qualified Code(s): R10.11 - Right upper quadrant pain (5) CAD (coronary artery disease) Code(s): I25.10 - ATHSCL HEART DISEASE OF [place] CORONARY ARTERY W/O ANG PCTRS (6) Hx of CABG Code(s): Z95.1 - PRESENCE OF AORTOCORONARY BYPASS GRAFT (7) Near syncope Code(s): R55 - SYNCOPE AND COLLAPSE <Jay Lake V - Last Filed: 02/19/20 19:35>
[2020-02-19] MEDS: MAGNESIUM OXIDE 400 MG TABLET (FP) PO SCH (10:07)
[2020-02-19] MEDS: CHOLECALCIFEROL (VIT D3) 1,000 UNIT (25 MCG) TABLET PO SCH (10:07)
[2020-02-19] MEDS: ISOSORBIDE MONONITRATE 30 MG TAB.SR.24H (FP) PO SCH (10:07)
[2020-02-19] MEDS: PANTOPRAZOLE 40 MG TABLET PO SCH (10:07)
--- NOTE | 2020-02-19 10:14 | PN ---
Progress Note, Physician History of Present Illness: The patient is a 79 year old male, with a significant past medical history of hypertension, hyperlipidemia, triple CABG (17 s/p aortic valve replacement), CAD, diabetes, liver cancer (diagnosed 10/2019, pending radiation 02/28), who presents to the emergency department s/p syncope with epigastric discomfort, nausea, and vomiting. 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 While in the ED, patient experienced one episode of NBNB emesis. He notes his pain to worsen with sitting upright and feel better while lying flat. He denies any recent cough, shortness of breath, fevers, or dizziness. PMH Triple Bypass Bioprostatic Aortic Valve [facility] [place] 2016 Nuclear MIBI stress March 2017 negative Cardiac Cath @ [facility] by 10/01/19 Calcified arteries Left Main 30% LAD proximal 60%, mid 95%, distal 100% D2 90% medium size long vessel LCx proximal 100% OM1 100% OM2 100% Ramus 90% medium size long vessel RCA proximal 70%, mid 90%, distal 50%, RPDA 90% SVG to OM2 patent with mild distal disease [place] arteries MAL[place]RA to LAD patent with mild to moderate distal disease [place] vessel 2019 - Large Liver hepatoma treated at - no evidence of metastasis- awaiting IR evaluation for possible embolization chemotherapy. C.Cath @ [facility] by Dr. Philip 01/08/20 Normal right heart pressures The patient was bradycardiac at the beginning of the procedure Patent IM graft to the LAD Patent SVG to the OM2 Mid LM lesion is 30% stenosed. Prox LAD lesion is 60% stenosed. Dist LAD lesion is 100% stenosed. Mid Cx lesion is 100% stenosed. 2nd Diag lesion is 90% stenosed. 1st Mrg lesion is 100% stenosed. 2nd Mrg lesion is 100% stenosed. Ost RCA lesion is 80% stenosed. Prox RCA lesion is 80% stenosed. Mid RCA lesion is 90% stenosed. Dist RCA lesion is 70% stenosed. RPDA lesion is 90% stenosed. Mid LAD lesion is 95% stenosed. The attending physician reevaluated the patient prior to ordering sedation. The patient level of consciousness and physiological status were monitoring throughout the procedure by a sedation trained nurse. s/p coronary angiography with grafts and [facility] inpatient Dx Unstable angina/history of positive stress test/CAD/Syncope Calcified arteries Left Main 30% LAD proximal 60%, mid 95%, distal 100% D2 90% medium size long vessel LCx proximal 100% OM1 100% OM2 100% Ramus 90% medium size long vessel RCA ostial 80%, proximal 80%, mid 90%, distal 70%, RPDA 90% SVG to OM2 patent with mild distal disease [place] arteries MALHOTRA to LAD patent with mild to moderate distal disease [place] vessel Before procedure, patient became bradycardiac and hypotensive and was treated with Atropine. - Current Medication List Current Medications: Active Medications Albuterol Sulfate (Ventolin 0.083% Nebulizer Soln -) 1 amp NEB TID PRN PRN Reason: WHEEZING Aspirin (Ecotrin -) 81 mg PO [facility] Last Admin: 02/18/20 21:48 Dose: 81 mg Documented by: Cholecalciferol (Vitamin D3 -) 2,000 unit PO DAILY [facility] Last Admin: 02/19/20 10:07 Dose: 2,000 unit Documented by: Isosorbide Mononitrate (Imdur -) 30 mg PO DAILY [facility] Last Admin: 02/19/20 10:07 Dose: 30 mg Documented by: Magnesium Oxide (Mag-Ox -) 400 mg PO BID [facility] Last Admin: 02/19/20 10:07 Dose: 400 mg Documented by: Metoprolol Succinate (Toprol Xl -) 50 mg PO DAILY [facility] Last Admin: 02/19/20 10:07 Dose: 50 mg Documented by: Pantoprazole Sodium (Protonix -) 40 mg PO DAILY [facility] Last Admin: 02/19/20 10:07 Dose: 40 mg Documented by: Rosuvastatin Calcium (Crestor -) 5 mg PO [facility] Last Admin: 02/18/20 21:48 Dose: 5 mg Documented by: Tamsulosin HCl (Flomax -) 0.4 mg PO [facility] Last Admin: 02/18/20 21:49 Dose: 0.4 mg Documented by: - Objective Vital Signs: Vital Signs Temperature 98.4 F 02/19/20 05:43 Pulse Rate 66 02/19/20 05:43 Respiratory Rate 20 02/19/20 05:43 Blood Pressure 131/54 L 02/19/20 05:43 O2 Sat by Pulse Oximetry (%) 97 02/18/20 21:00 Eyes: Yes: WNL, Conjunctiva Clear, EOM Intact HENT: Yes: WNL, Atraumatic, Normocephalic Neck: Yes: WNL, Supple, Trachea Midline Cardiovascular: Yes: WNL, Regular Rate and Rhythm Respiratory: Yes: WNL, Regular, CTA Bilaterally Gastrointestinal: Yes: WNL, Normal Bowel Sounds Genitourinary: Yes: WNL Musculoskeletal: Yes: WNL Extremities: Yes: WNL Edema: No Integumentary: Yes: WNL Neurological: Yes: WNL, Alert, Oriented ...Motor Strength: WNL Psychiatric: Yes: WNL Labs: CBC, BMP 02/18/20 06:00 02/18/20 05:48 INR, PTT INR 1.13 (0.83-1.09) H 02/18/20 05:48 Problem List - Problems (1) Syncope Code(s): R55 - SYNCOPE AND COLLAPSE Qualifiers: Syncope type: unspecified Qualified Code(s): R55 - Syncope and collapse (2) JEANA (acute kidney injury) Code(s): N17.9 - ACUTE KIDNEY FAILURE, UNSPECIFIED (3) Abdominal pain Code(s): R10.9 - UNSPECIFIED ABDOMINAL PAIN Qualifiers: Abdominal location: right upper quadrant Qualified Code(s): R10.11 - Right upper quadrant pain (4) CAD (coronary artery disease) Code(s): I25.10 - ATHSCL HEART DISEASE OF [place] CORONARY ARTERY W/O ANG PCTRS (5) COPD (chronic obstructive pulmonary disease) Code(s): J44.9 - CHRONIC OBSTRUCTIVE PULMONARY DISEASE, UNSPECIFIED (6) Hx of CABG Code(s): Z95.1 - PRESENCE OF AORTOCORONARY BYPASS GRAFT (7) Liver cancer Code(s): C22.9 - MALIG NEOPLASM OF LIVER, NOT SPECIFIED PRIMARY OR SEC (8) Near syncope Code(s): R55 - SYNCOPE AND COLLAPSE (9) Obesity Code(s): E66.9 - OBESITY, UNSPECIFIED (10) Shortness of breath Code(s): R06.02 - SHORTNESS OF BREATH Assessment/Plan - Problems (1) HTN (hypertension) Assessment/Plan: on metoprolol ER Code(s): I10 - ESSENTIAL (PRIMARY) HYPERTENSION (2) Syncope Assessment/Plan: repeated episodes. stable s/p loop recorder insertion by Dr. Jay Lake. Stable for discgarge. Code(s): R55 - SYNCOPE AND COLLAPSE Qualifiers: Syncope type: unspecified Qualified Code(s): R55 - Syncope and collapse (3) CAD (coronary artery disease) Code(s): I25.10 - ATHSCL HEART DISEASE OF [place] CORONARY ARTERY W/O ANG PCTRS (4) Hx of CABG Code(s): Z95.1 - PRESENCE OF AORTOCORONARY BYPASS GRAFT (5) Liver cancer Assessment/Plan: s/p radiation therapy Code(s): C22.9 - MALIG NEOPLASM OF LIVER, NOT SPECIFIED PRIMARY OR SEC (6) Obesity Code(s): E66.9 - OBESITY, UNSPECIFIED (7) Shortness of breath Code(s): R06.02 - SHORTNESS OF BREATH (8) Hyperlipidemia Assessment/Plan: On rosuvastatin Code(s): E78.5 - HYPERLIPIDEMIA, UNSPECIFIED
--- NOTE | 2020-02-19 13:33 | DS ---
Physical Examination Vital Signs: Vital Signs Temperature 98.1 F 02/19/20 10:00 Pulse Rate 81 02/19/20 10:00 Respiratory Rate 20 02/19/20 10:00 Blood Pressure 125/67 02/19/20 10:00 O2 Sat by Pulse Oximetry (%) 97 02/19/20 09:00 Findings/Remarks: Pt w/o syncope, dizziness, lightheadedness, CP, palpitations, SOB, cough, abd pain, vomiting. Pt to start treatment for liver cancer on 02/29/2020. Constitutional: Yes: No Distress, Calm Cardiovascular: Yes: Regular Rate and Rhythm, S1, S2 Respiratory: Yes: Regular, CTA Bilaterally. No: Rales Gastrointestinal: Yes: Normal Bowel Sounds, Soft, Hepatomegaly Edema: No Neurological: Yes: Alert, Oriented Psychiatric: Yes: Alert, Oriented Labs: CBC, BMP 02/18/20 06:00 02/18/20 05:48 Discharge Summary Problems reviewed: Yes Reason For Visit: SYNCOPE Current Active Problems HTN (hypertension) (Acute) Hyperlipidemia (Acute) Syncope (Acute) Vasovagal syncope (Acute) Hospital Course: Pt came to ER after syncope. Pt was admitted to Telemetry, had negative CE and no new events, had loop recorder insertion. Pt to be DC'ed home with f/u with Dr Moser next week. Condition: Fair - Instructions Diet, Activity, Other Instructions: Per Dr. Lake (Electrophysiology), patient is to follow-up with Dr. Moser in 7 days Keep wound clean and dry for the next 5 days. No anticoagulation for 48 hrs starting 02/18/2020. No Plavix until seeing Dr Moser. Referrals: Taiwo Gastelum MD [Primary Care Provider] - (as scheduled.) Disposition: HOME - Home Medications Comprehensive Discharge Medication List: Ambulatory Orders RX: Aspirin [Aspirin EC] 81 mg PO HS 04/19/19 RX: Clopidogrel Bisulfate [Plavix] 75 mg PO DAILY 04/19/19 RX: Metoprolol Tartrate 50 500s PO DAILY 04/19/19 RX: Tamsulosin HCl [Flomax] 0.4 mg PO HS 04/19/19 RX: Rosuvastatin [Crestor -] 5 mg PO HS 10/05/19 RX: Cholecalciferol (Vitamin D3) [Vitamin D3] 50 mcg PO DAILY 10/21/19 RX: Isosorbide Mononitrate [Isosorbide Mononitrate ER] 30 mg PO DAILY 01/06/20 RX: Omeprazole 40 mg PO DAILY 01/06/20 Albuterol Sulfate [Albuterol Sulfate Hfa] 8.5 gm IH TID PRN #1 [email or web address] 02/07/20
[2020-02-19 14:27] VITALS: BP 128/60; PULSE 76; TEMP 97.9
--- NOTE | 2020-02-22 09:08 | OP ---
DATE OF OPERATION: 02/18/2020 SURGEON: Jay Lake MD FUR LINER: ROBERTO Reid PROCEDURE: Medtronic loop recorder implant. INDICATIONS: Recurrent syncope, bradycardia. DESCRIPTION OF PROCEDURE: The anterior thorax was prepped and draped in a sterile fashion. Local anesthesia with Sensorcaine was infiltrated over the anticipated subcutaneous tract in the left 4th intercostal space near the sternum. A stab incision was created over the left 4th intercostal/parasternal interim. An implantable loop recorder (Medtronic LINQ, Serial Number [id number]) was then advanced subcutaneously in a horizontal tract using an injection instrument. Hemostasis was achieved. The incision was closed with a running subcuticular 4- 0 Vicryl suture. Dermabond was placed over the incision site. Steri-Strips and a sterile bandage were placed. No acute complications were evident. Device interrogation demonstrated excellent sinus R-waves (0.21 milliwatts). The patient tolerated the procedure well. Marianela [id number] [email or web address]
== END 2020-02-19 14:28 | disposition home or self-care (01) | DRG 261 ==
LOC: JER 10:18 → JERBED 13:04 → J4W 14:45
PROVIDERS: ADMIT Internal Medicine; ATTEND Internal Medicine
PROC: 0JH632Z Insertion of Monitoring Device into Chest Subcutaneous Tissue and Fascia, Percutaneous Approach (ICD-10-PCS; principal; 2020-02-18 09:00)
DX: R55 Syncope and collapse (principal); C22.9 Malignant neoplasm of liver, not specified as primary or secondary; I25.10 Atherosclerotic heart disease of native coronary artery without angina pectoris; R00.1 Bradycardia, unspecified; E66.9 Obesity, unspecified; I10 Essential (primary) hypertension; E11.9 Type 2 diabetes mellitus without complications; E78.5 Hyperlipidemia, unspecified; Z95.1 Presence of aortocoronary bypass graft; I95.9 Hypotension, unspecified; Z68.31 Body mass index [BMI] 31.0-31.9, adult
CPT/HCPCS: 36415; 71045-TC-FY; 80053; 82550; 83690; 83735; 84443; 84484; 85025; 85610; 85730; 93005; 93010; 99285-25